=== PATIENT | female | born 1980 | race Caucasian/White ===

== ENCOUNTER 2024-12-01 13:40 | Inpatient (IN) | payer BC, SELFPAY ==
[2024-12-01] VITALS (14 sets, daily range): BP systolic 132–250; BP diastolic 79–150; PULSE 68–92; RESP 15–22; TEMP 36.3; O2SAT 93–99; BMI 28.1
--- NOTE | ~2024-12-01 | XR_ITS ---
EXAMINATION: XR CHEST CLINICAL INFORMATION: lightheaded COMPARISON: None available. TECHNIQUE: Frontal view of the chest was obtained. FINDINGS: Cardiac silhouette is prominent but may be partially magnified by the AP technique. Mediastinal and hilar contours are normal. The lungs are clear bilaterally. No pneumothorax or effusion. No focal osseous or soft tissue abnormality. XR/XR chest 1V IMPRESSION: 1. No active pulmonary disease. 2. Possible mild cardiac enlargement. Electronically signed by: Angel Rea MD 12/01/2024 02:53 PM EST
--- NOTE | ~2024-12-01 | US_ITS ---
EXAMINATION: US TRIPLEX LOWER EXTREMITY, LEFT CLINICAL INFORMATION: Left lower extremity edema. COMPARISON: None available. TECHNIQUE: Color-flow triplex imaging with spectral analysis and compression Doppler were performed on the left lower extremity. FINDINGS: Respiratory variation, normal compression and augmented flow are noted throughout the left lower extremity. The visualized common femoral vein, superficial femoral vein, profunda femoral vein, popliteal vein and midcalf peroneal and posterior tibial venous segments show no evidence of deep venous thrombosis. There is no Long's cyst. US/US venous duplex LE LT IMPRESSION: No evidence of deep venous thrombosis involving the left lower extremity. Electronically signed by: Angel Rea MD 12/01/2024 04:09 PM [facility]
--- NOTE | ~2024-12-01 | CT_ITS ---
EXAMINATION: CT HEAD WITHOUT CONTRAST (STROKE PROTOCOL) CLINICAL INFORMATION: Stroke protocol. COMPARISON: None available. TECHNIQUE: Contiguous axial imaging was performed from the skull base to vertex without intravenous administration of contrast. This CT examination was performed using dose optimization techniques as appropriate, variously including the following: *Automated exposure control *Adjustment of mA and/or kV according to patient size (this includes techniques or standardized protocols for targeted exams where dose is matched to indication/reason for exam; i.e. extremities or head) *Use of iterative reconstruction technique DLP: 708 mGy centimeter. FINDINGS: No acute intracranial hemorrhage, mass effect, midline shift, hydrocephalus or herniation. Hewitt-white matter differentiation is grossly normal. Posterior cranial fossa contents demonstrated no acute intrarenal hemorrhage or mass effect. Sellar/suprasellar region demonstrated no gross masses. Craniocervical junction is intact with normal alignment. The bony calvarium is intact. No air-fluid levels in the paranasal sinuses. Tympanic cavities are well aerated. Poor pneumatization of the right mastoid air cells. CT/CT head for STROKE IMPRESSION: No acute intracranial hemorrhage. Acute stroke/nonhemorrhagic ischemia cannot be excluded. If patient's symptoms persist recommend non-IV contrast MRI brain. This critical result was discussed with physician assistant professor of biology, Kerry Gonzalez at 1501 hours on December 01, 2024. It was ascertained that the content and urgency of the report was understood at the time of direct communication. Electronically signed by: Fred Potter MD 12/01/2024 03:04 PM [facility]
--- NOTE | ~2024-12-01 | CT_ITS ---
EXAMINATION: CTA NECK WITH CONTRAST (STROKE) CTA BRAIN WITH CONTRAST (STROKE) CLINICAL INFORMATION: Suspect acute stroke. Assess for major vessel occlusion. Please call report. COMPARISON: Correlated to noncontrast CT brain dated December 01, 2024. TECHNIQUE: CTA of the head and neck was performed in the axial plane from the mediastinum to the skull vertex using 70 mL Omnipaque 350 intravenous contrast. Additional reformatted multiplanar images including maximum intensity projection MIP images are generated on the CT workstation. This CT examination was performed using dose optimization techniques as appropriate, variously including the following: *Automated exposure control *Adjustment of mA and/or kV according to patient size (this includes techniques or standardized protocols for targeted exams where dose is matched to indication/reason for exam; i.e. extremities or head) *Use of iterative reconstruction technique. DLP: 720 mGy centimeter. FINDINGS: The degree of stenosis determined by criteria similar to NASCET. Chest CTA: No aneurysm or dissection, aorta arch. Neck CTA: Right CCA: Normal. Right ICA: Normal. Left CCA: Normal. Left ICA: Normal. V1/V2 segments demonstrated no stenosis or dissection. Left vertebral artery is dominant. Brain CTA: Anterior cerebral circulation: ICAs: No focal stenosis or abrupt cut off. MCA's: No focal stenosis or abrupt cut off. Bifurcation/trifurcation demonstrated no vascular irregularity. ACAs: No focal stenosis or abrupt cut off. Anterior communicating artery is patent. Ophthalmic arteries are patent without vascular irregularity. Posterior communicating arteries are patent. Posterior cerebral circulation: V3/V4 segments are patent without focal stenosis or intimal flap. Left vertebral artery is dominant. The basilar artery demonstrates normal caliber without intimal flap. The superior cerebellar arteries are patent. The left posterior inferior cerebellar arteries patent. There is a right anterior inferior and posterior inferior cerebellar artery trunk. coater carbon paper: No abrupt cut off or focal stenosis. Small P1 segments.. Ancillary findings: Bilateral pleural effusions, moderate to large volume. Mosaic pattern, bilaterally. Cervical spondylosis C5-6 resulting in kyphotic deformity. Poor dilatation. CT/CT angio head neck STROKE IMPRESSION: No high degree stenosis or dissection. No main cerebral artery occlusion or embolus. No gross cerebral aneurysm. Pulmonary edema and bilateral pleural effusions, moderate to large volume. Uncertain etiology. This critical test result is communicated to: Electronically signed by: Fred Potter MD 12/01/2024 03:37 PM EST RP
--- NOTE | ~2024-12-01 | US_ITS ---
EXAMINATION: ULTRASOUND RENAL WITH DOPPLER CLINICAL INFORMATION: Rule out renal artery stenosis. Hypertension. COMPARISON: None. TECHNIQUE: Real-time grayscale, color Doppler, and duplex Doppler evaluation of the kidneys and renal vasculature was performed. FINDINGS: RENAL MEASUREMENTS: Right: 10.9 x 5.9 x 5.6 cm (Sag x AP x TV) Left: 10.0 x 6.2 x 4.6 cm (Sag x AP x TV) No hydronephrosis. Normal cortical echogenicity and thickness. No suspicious masses. Spectral Doppler analysis: Right Kidney: -Peak systolic velocity in the proximal right renal artery = 63.8 cm/s. Normal waveforms. -Peak systolic velocity in the mid right renal artery = 101.0 cm/s. Normal waveforms. -Peak systolic velocity in the distal right renal artery = 121.0 cm/s. Normal waveforms. -Patent right renal vein. -Upper pole interlobar artery resistive index of 0.60. -Midpole interlobar artery resistive index of 0.61. -Lower pole interlobar artery resistive index of 0.62. RAR right = 1.22 Left Kidney: -Peak systolic velocity in the proximal left renal artery = 59.2 cm/s. Normal waveforms. -Peak systolic velocity in the mid left renal artery = 107.0 cm/s. Normal waveforms. -Peak systolic velocity in the distal left renal artery = 90.3 cm/s. Normal waveforms. -Patent left renal vein. -Upper pole interlobar artery resistive index of 0.63. -Mid pole interlobar artery resistive index of 0.60. -lower pole interlobar artery resistive index of 0.63. RAR left = 1.09 Aorta: -Peak systolic velocity = 98.4 cm/s. US/US renal doppler IMPRESSION: 1. No evidence of renal artery stenosis or abnormal waveforms bilaterally on color/spectral Doppler examination (based on peak systolic velocities and resistive indices). 2. Renal parenchyma is normal. Electronically signed by: Angel Rea MD 12/03/2024 02:40 PM [facility]
--- NOTE | ~2024-12-01 | MR_ITS ---
CLINICAL HISTORY: ataxia, HTN, CRAMER, N V r o CVA (posterior) MR BRAIN WITHOUT GADOLINIUM Comparison: CT/KS/SR - CT HEAD FOR STROKE - 12/01/24 14:44 EST Findings: No restricted diffusion to indicate acute infarct or ischemia. No intracranial mass or hemorrhage. No significant white matter signal alteration. No midline shift. No hydrocephalus. Vascular flow voids are intact. Orbital contents are unremarkable. The sinuses and mastoid air cells are clear. No focal bone lesion. IMPRESSION: No acute findings. This document has been electronically signed by: Luisana Dia DO on 12/01/2024 18:23:32
--- NOTE | 2024-12-01 14:24 | ECG_ITS ---
Test Reason : hypertension Blood Pressure : */* mmHG Vent. Rate : 81 BPM Atrial Rate : 81 BPM P-R Int : 152 ms QRS Dur : 86 ms QT Int : 410 ms P-R-T Axes : 72 43 147 degrees QTcB Int : 476 ms Normal sinus rhythm Possible Left atrial enlargement T wave abnormality, consider lateral ischemia Prolonged QT Abnormal ECG No previous ECGs available Referred By: Kerry Gonzalez Electronically Signed By: JAXON DONAHUE
[2024-12-01 14:42] LABS: MANUAL DIFF FLAG NO
[2024-12-01 14:46] LABS: Basophils Percent Auto 0.4 % (0-2); Eosinophils Absolute Auto 0.1 X10*3/uL (0.0-0.4); Eosinophils Percent Auto 0.5 % (0-4); Hematocrit 35.9 % (37.0-47.0); Hemoglobin 12.3 g/dl (12.0-16.0); Imm Gran Abs Auto 0.04 X10*3/uL (0.00-0.03); Imm Gran Pct Auto 0.4 % (0.0-0.4); Lymphocytes Absolute Auto 1.3 X10*3/uL (1.2-4.9); Lymphocytes Percent Auto 11.3 % (20-40); Mean Corpuscular HGB Conc 34.3 g/dl (31.0-35.0); Mean Corpuscular Hemoglobin 30.9 pg (27.0-33.0); Mean Corpuscular Volume 90.2 fL (80.0-98.0); Mean Platelet Volume 9.6 fL (9.4-12.3); Monocytes Absolute Auto 0.4 X10*3/uL (0.1-1.2); Monocytes Percent Auto 3.9 % (2-11); Neutrophils Absolute Auto 9.3 x10*3/uL (2.0-8.3); Neutrophils Percent Auto 83.5 % (45-73); Platelet Count 316 X10*3/uL (160-400); Red Blood Count 3.98 X10*6/uL (4.20-5.50); Red Cell Distribution Width 12.6 % (11.0-16.0); White Blood Count 11.1 X10*3/uL (4.8-10.8)
[2024-12-01 14:50] LABS: INTERNATIONAL NORM RATIO 0.9 (0.9-1.1); Prothrombin Time 10.9 SEC (10.9-12.4)
--- NOTE | 2024-12-01 14:53 | ED.GENADULT ---
HPI - General Adult General Chief complaint: Dizziness Stated complaint: hypertensive (offmeds), dizzy, b/l pedal edema Time Seen by Provider: 12/01/24 13:57 Source: patient, EMS, RN notes reviewed and old records reviewed Mode of arrival: EMS History of Present Illness ED Provider: Kerry Gonzalez PA-C HPI narrative: 44-year-old female with no significant past medical history presenting to the ED complaining of lightheadedness/presyncope, unsteady/off balance gait, feeling off x this morning when waking with episode lightheadedness w/ nausea and vomiting last night. Per EMS patient hypertensive. Reports right-sided headache last night, denies headache at present. Also reports LLE edema/swelling. Denies vision change or loss, CP/SOB, abdominal pain, nausea/vomiting at present. Denies anticoagulation use or recent illness. Denies recent travel/history of clots or cigarette smoking, does use vape Related Data Allergies Allergy/AdvReac Type Severity Reaction Status Date / Time No Known Allergies Allergy Verified 12/01/24 14:30 Review of Systems Review of Systems: Yes all other systems are reviewed and are negative Constitutional: Constitutional: Reports as per HPI Neurologic: Denies Abnormal speech present PMFSH Past Medical History Attestation statement: The following information was validated with the patient. Source: old records reviewed Social History Social History Advance Directives: No Advance Directives Information Provided: Yes Do you have a plan to hurt others: No Plan Physical Exam ED Vital Signs: Vital Signs - 24 hr 12/01/24 13:53 12/01/24 14:02 12/01/24 16:12 Pulse Rate 88 68 92 Respiratory Rate 16 18 18 Blood Pressure 189/115 H 178/105 H 186/112 H Pulse Oximetry 99 99 97 Oxygen Delivery Method Room Air Room Air Room Air 12/01/24 16:54 12/01/24 18:07 12/01/24 18:18 Pulse Rate 91 82 Respiratory Rate 18 Blood Pressure 186/112 H 195/128 H 200/134 H Pulse Oximetry 99 Oxygen Delivery Method Room Air 12/01/24 18:42 12/01/24 18:43 Pulse Rate 85 Respiratory Rate Blood Pressure 189/123 H 189/123 H Pulse Oximetry Oxygen Delivery Method BMI result Body Mass Index 28.1 Const General: cooperative, healthy appearing and no acute distress Orientation/consciousness: patient oriented x3 Limitations: no limitations HENMT Head: Yes normal to inspection and Yes atraumatic Ears: hearing grossly normal bilaterally General nose exam: Normal external nose present Face and sinus: Yes normal facial exam Mouth: Normal oral and palatal mucosa present Throat: Yes posterior oropharynx normal, Yes tonsils normal and Yes uvula midline Eyes General: appearance normal, both eyes and all related structures Pupils: Equal, round and reactive pupils present EOM: EOMs intact bilaterally Neck Neck: Yes normal visual inspection and Yes no meningeal signs Resp Effort & Inspection: normal respiratory effort and no respiratory distress Auscultation: clear to auscultation bilaterally, no crackles, no rhonchi and no wheezes Cardio Rate: regular rate Heart sounds: S1 normal heart sound present and S2 normal heart sound present GI Inspection: Yes normal to inspection Palpation (GI): Soft to palpation, nontender, no guarding and not rigid Skin Rashes: no rashes Wounds: no wounds Neuro General: patient oriented x3, tone normal, moves all extremities, no meningeal signs, no focal motor deficits and CN's II-XI intact bilaterally Cranial nerves: Yes CN's II-XII intact bilaterally and Yes Equal, round and reactive pupils present Cognition (Neuro): normal cognition Speech: No Abnormal speech present Gait exam (Neuro): Ataxic gait present Motor exam (neuro): 5/5 motor strength present throughout, Pronator motor function not present and no tremor noted Coordination: [id number] test normal Romberg Test: Negative Extrem Other: + pitting edema to LLE NIH Stroke Scale Internal: Initial- Upon Arrival Level of Consciousness: Alert Level of Consciousness Questions: Answers both questions correctly Level of Consciousness Commands: Performs both tasks correctly Best Gaze: Normal Visual: No visual loss Facial Palsy: Normal Motor Arm (Right): No drift Motor Arm (Left): No drift Motor Leg (Right): No drift Motor Leg (Left): No drift Limb Ataxia: Absent Sensory: Normal Best Language: No aphasia Dysarthia: Normal Extinction and Inattention: No abnormality Score: 0 Course Course Course Narrative: -1491--CT head negative for stroke CT head for STROKE IMPRESSION: No acute intracranial hemorrhage. Acute stroke/nonhemorrhagic ischemia cannot be excluded. If patient's symptoms persist recommend non-IV contrast MRI brain. CT angio head neck STROKE IMPRESSION: No high degree stenosis or dissection. No main cerebral artery occlusion or embolus. No gross cerebral aneurysm. Pulmonary edema and bilateral pleural effusions, moderate to large volume. Uncertain etiology. > case discussed with patient appointment coordinator, will obtain brain MRI. Patient denies history of CHF/clots or SOB/CP XR chest 1V IMPRESSION: 1. No active pulmonary disease. 2. Possible mild cardiac enlargement. US venous duplex LE LT IMPRESSION: No evidence of deep venous thrombosis involving the left lower extremity. -troponin 20.9 > will obtain 3 hour repeat. Viral testing negative -patient noncompliant with her blood pressure medication. Will give home dose of lisinopril & re-evaluate. States periodically checks her blood pressure at work and is always elevated. >1808--patient returned from MRI, persistently hypertensive will give 5 mg of IV Labetalol and repeat MR head/brain wo con IMPRESSION: No acute findings. -1836-- BP 189/120 after 5mg IV Labetolol. Will give Meclizine, additional 10mg of IV Labetalol and 40mg of IV Lasix. Plan is for admission. >190-- BP remains elevated > will try nitro paste -3-- patient ambulating w/steady gait, no ataxia at present -1906--case discussed with hospitalist, Dr. Smalls who accepted admission Medications Administered Discontinued Medications Generic Name Dose Route Start Last Admin Trade Name Freq PRN Reason Stop Dose Admin Furosemide 40 mg 12/01/24 18:33 12/01/24 18:43 Furosemide 40 Mg/4 Ml Vial IVPUSH 12/01/24 18:34 40 mg STAT STA Administration Protocol Sodium Chloride 1,000 mls @ 999 mls/hr 12/01/24 14:30 12/01/24 15:22 Ns IV 12/01/24 15:30 999 mls/hr .Q1H1M SABINO Administration Iohexol 100 ml 12/01/24 14:54 12/01/24 14:55 Iohexol 350 Mg/Ml 100 Ml Infus..Btl IV 12/01/24 14:55 70 ml ONCE ONE Administration Labetalol HCl 5 mg 12/01/24 18:09 12/01/24 18:18 Labetalol Hcl 100 Mg/20 Ml Vial IVPUSH 12/01/24 18:10 5 mg ONCE ONE Administration Labetalol HCl 10 mg 12/01/24 18:35 12/01/24 18:42 Labetalol Hcl 100 Mg/20 Ml Vial IVPUSH 12/01/24 18:36 10 mg ONCE ONE Administration Lisinopril 20 mg 12/01/24 16:36 12/01/24 16:54 Lisinopril 20 Mg Tablet PO 12/01/24 16:37 20 mg ONCE ONE Administration Protocol Meclizine HCl 25 mg 12/01/24 18:30 12/01/24 18:43 Meclizine Hcl 25 Mg Tablet PO 12/01/24 18:31 25 mg ONCE ONE Administration Ondansetron HCl 4 mg 12/01/24 14:26 12/01/24 15:27 Ondansetron Hcl 4 Mg/2 Ml Vial IVPUSH 12/01/24 14:27 4 mg ONCE ONE Administration Medical Decision Making Medical Decision Making MDM Narrative: 44-year-old female with no significant past medical history presenting to the ED complaining of lightheadedness/presyncope, unsteady/off balance gait, feeling off x this morning when waking with episode lightheadedness w/ nausea and vomiting last night. Reports right-sided headache last night, denies headache at present. Also reports LLE edema/swelling. On exam hypertensive, NAD, walking with ataxic gait, otherwise exam is nonfocal. + pitting edema to LLE. Concern for CVA vs TIA (unclear onset - last known well last night) vs DVT or CHF vs viral illness vs metabolic abnormalities. PE on ddx but lower at this time w/o hypoxia, tachycardia or SOB/CP Plan: EKG, labs, viral testing, UA, CXR, ultrasound, CT head/CTA head for stroke, orthostatics, Zofran, re-evaluate Please refer to course for remaining clinical decision making, interpretation of labs/imaging results, and discussions with consultants and/or family members. Differential Diagnosis Differential Diagnoses: The differential diagnosis associated with the presentation includes As above Admission/Observation Consideration of admission/observation: Escalation of care including admission/observation considered Consult Healthcare Provider Management of the patient was discussed with: Hospitalist and Naturopathic Physician Lab Data [facility] Lab Attestation statement: I reviewed the patient's lab results. 12/01/24 14:35 02/18/25 14:35 Labs: Lab Results 12/01/24 12/01/24 12/01/24 Range/Units 14:35 18:19 18:30 WBC 11.1 H (4.8-10.8) X10*3/uL RBC 3.98 L (4.20-5.50) X10*6/uL Hgb 12.3 (12.0-16.0) g/dl Hct 35.9 L (37.0-47.0) % MCV 90.2 (80.0-98.0) fL MCH 30.9 (27.0-33.0) pg MCHC 34.3 (31.0-35.0) g/dl RDW 12.6 (11.0-16.0) % Plt Count 316 (160-400) X10*3/uL MPV 9.6 (9.4-12.3) fL Immature Gran % (Auto) 0.4 (0.0-0.4) % Neut % (Auto) 83.5 H (45-73) % Lymph % (Auto) 11.3 L (20-40) % Butler % (Auto) 3.9 (2-11) % Eos % (Auto) 0.5 (0-4) % Baso % (Auto) 0.4 (0-2) % Lymph # (Auto) 1.3 (1.2-4.9) X10*3/uL Butler # (Auto) 0.4 (0.1-1.2) X10*3/uL Eos # (Auto) 0.1 (0.0-0.4) X10*3/uL Baso # (Auto) 0.0 (0.0-0.2) X10*3/uL Abs Immat Gran (auto) 0.04 H (0.00-0.03) X10*3/uL Absolute Neuts (auto) 9.3 H (2.0-8.3) x10*3/uL Absolute Nucleated RBC 0.000 (0.0-0.012) X10*3/uL Nucleated RBC % (auto) 0.0 (0.0-0.2) /100WBC PT 10.9 (10.9-12.4) SEC INR 0.9 (0.9-1.1) Sodium 138 (135-145) mmol/L Potassium 4.1 (3.3-5.1) mmol/L Chloride 111 H (96-108) mmol/L Carbon Dioxide 20 L (22-29) mmol/L Anion Gap 11 L (12-20) BUN 16 (9-16) mg/dL Creatinine 0.86 (0.5-1.4) mg/dL Estim Creat Clear Calc 95.7 Estimated GFR > 60 Random Glucose 111 (60-115) mg/dL Calcium 8.9 (8.4-10.2) mg/dL Magnesium 2.1 (1.6-2.6) mg/dL Total Bilirubin 0.5 (0.0-1.0) mg/dL Direct Bilirubin 0.2 (0.0-0.5) mg/dL AST 23 (5-31) U/L ALT 20 (0-31) U/L Alkaline Phosphatase 54 (39-117) U/L Troponin I High Sens 20.9 H 18.4 H (<3.5-17.0) ng/L Total Protein 6.3 L (6.5-8.0) g/dL Albumin 3.5 (3.5-5.0) g/dL Beta HCG, Quant < 2 mIU/mL Urine Color Yellow Urine Appearance Clear Urine pH 5.5 (5.0-9.0) Ur Specific Pierce >= 1.030 H (1.005-1.025) Urine Protein Trace (Neg-Trace) mg/dL Urine Glucose (UA) Negative (Negative) mg/dL Urine Ketones Negative (Negative) mg/dL Urine Blood Negative (Negative) Urine Nitrite Negative (Negative) Ur Leukocyte Esterase Negative (Negative) Influenza Type A (PCR) NEGATIVE (Negative) Influenza Type B (PCR) NEGATIVE (Negative) RSV RNA Qual (PCR) NEGATIVE (Negative) SARS-CoV-2 RNA (RT-PCR) NEGATIVE (Negative) Independent Interpretation I performed an independent interpretation of an: EKG (My interpretation EKG normal sinus rhythm rate of 81. Prolonged QT with 476. No previous to compare. No STEMI. Inverted T-waves in leads 1, 2, aVL, V3 through V6 ), Plain X-Ray and CT Scan Radiology Impression Discussion of test interpretation with radiology: I have reviewed the radiologist's reading. Independent Historian Clinical information obtained from an independent historian. History obtained from or confirmed by: EMS External Record Review External record reviewed: Inpatient record, Office record, Outpatient record, Prior outpatient labs, Prior outpatient radiology, Primary care record and Outside ED record Tests considered The following testing was considered but not selected: As above Prescription Management I considered prescription management with: Other Chronic Conditions Patient?s care impacted by: Other Social Determinants Patient?s care significantly limited by Social Determinants of Health including: Other Social Determinant of Health Critical Care Time Critical Care Time Critical Care Time: Yes Total Critical Care Time: 45 Attestation: I have personally provided critical care time exclusive of time spent on separately billable procedures. Time includes review of lab data, radiology results, discussion with consultants, and monitoring for potential decompensation. Intervention performed as documented. Discharge Plan Discharge Clinical Impression: Ataxia, Pulmonary edema, Pleural effusion, Pre-syncope, Leg edema, Hypertension Patient Disposition: Admitted As Inpatient Print Language: Latvian
[2024-12-01] MEDS: iohexoL 350 MG/ML 100 ML INFUS..BTL IV (14:55)
--- NOTE | 2024-12-01 15:00 | MHC.EDTECH ---
Attempted to do ekg pt is not in the room, will attempt shortly
--- NOTE | 2024-12-01 15:01 | MHC.EDTECH ---
attempted to do ekg pt is not in the room
[2024-12-01 15:08] LABS: Troponin-I High Sensitivity 20.9 ng/L (<3.5-17.0)
[2024-12-01 15:10] LABS: Alanine Aminotransferase 20 U/L (0-31); Albumin Level 3.5 g/dL (3.5-5.0); Anion Gap 11 (12-20); Aspartate Amino Transferase 23 U/L (5-31); Bilirubin Direct 0.2 mg/dL (0.0-0.5); Bilirubin Total 0.5 mg/dL (0.0-1.0); Blood Urea Nitrogen 16 mg/dL (9-16); Calcium 8.9 mg/dL (8.4-10.2); Carbon Dioxide 20 mmol/L (22-29); Chloride 111 mmol/L (96-108); Creatinine Clr Calc Pharmacy 95.7; Estimated Glomerular Filt Rate > 60; Glucose Random 111 mg/dL (60-115); Magnesium 2.1 mg/dL (1.6-2.6); Potassium 4.1 mmol/L (3.3-5.1); Sodium 138 mmol/L (135-145); Total Protein 6.3 g/dL (6.5-8.0)
[2024-12-01 15:22] LABS: Influenza A PCR NEGATIVE (Negative); Influenza B PCR NEGATIVE (Negative); Resp Syncy Virus RNA Qual PCR NEGATIVE (Negative); SARS COV2 PCR INHOUSE NEGATIVE (Negative)
[2024-12-01] MEDS: 0.9 % Sodium Chloride 1,000 ML 999 ML IV (15:22)
[2024-12-01] MEDS: ondansetron HCL 4 MG/2 ML VIAL IVPUSH (15:27)
[2024-12-01 15:34] LABS: HCG Quantitative < 2 mIU/mL
--- NOTE | 2024-12-01 15:36 | MHC.EDTECH ---
attempted to do ekg pt getting ultrasound at bedside
[2024-12-01 15:42] LABS: Alkaline Phosphatase 54 U/L (39-117)
--- NOTE | 2024-12-01 15:57 | MHC.STROKE ---
Met with patient in [facility] exam room 2 Pt awake, alert and oriented x 4. Reports feeling off since last night at approximately 2300. States that her gait is off. C/o right sided headache. No other focal deficits noted. At this time dizziness continues along with unsteady gait. Plan is for MRI to r/o posterior stroke. Pt agreeable to plan. Stroke Education reviewed. Pamphlet provided. Mri screening form completed and faxed Swallow screen done, will hold PO at this time. RN and provider aware Risk factors discussed including medical history, medications, diet, activity. Will continue to assist as needed.
--- OUTSIDE RECORDS SUMMARY | 2024-12-01 16:06 | XMS_ITS | Data Portability ---
Author Organization [facility], [address] Address [address] [place] [address] Assessment No assessment recorded. Plan of Treatment Reminders Order Date Submit Date Provider Last Modified By Organization Details Last Modified Time Details Appointments None recorded. Lab SARS CoV 2 (COVID-19) Ag, QL, IA, upper respiratory specimen 2023 024 [email or web address] [address] [place], [address], 4 09:39:40 rapid flu (A+B) 2023 024 [email or web address] [address] [place], [address], 4 09:39:40 Referral emergency medicine referral 2023 024 [email or web address] 2 Not available 4 09:48:12 Procedures None recorded. Surgeries None recorded. Imaging XR, chest, 2 view 2023 024 [facility], [address] [facility], [place], [address], 4 10:02:31 Medication Orders Zithromax Z-Florencio 250 mg tablet 2023 024 [id number], [address], [place], [phone], 4 09:39:46 albuterol sulfate HFA 90 mcg/actuati on aerosol inhaler 2023 [id number], [address], [place], [phone], 4 09:39:46 amoxicillin 875 mg-potdemetriusiu m clavulanate 125 mg tablet 2023 024 [facility] #[id number], [address], [place], [phone], 4 09:39:47 Patient TargetsNo targets recorded. Patient InstructionsNo instructions recorded. Reason for Referral Emergency Medicine Referral for Hypertensive urgency Referring Physician: Virgilio Szymanski, Urgent Care, Encounter Date: 09/25/2024 Results Created Date Observation Date Name Description Value Unit Range Abnormal Flag Note LastModifiedBy Organization Detail LastModifiedTime 09/25/2009/25/2024 rapid flu (A+B) Unknown Analyte negati ve Not Available [facility] [address] [place], [address], 09/25/2024 09:15:49 09/25/2009/25/2024 rapid flu (A+B) Unknown Analyte negati ve Not Available [facility] [address] [place], [address], 09/25/2024 09:15:49 09/25/20 24 09/25/2024 SARS CoV 2 (COVI D-19) Ag, QL, IA, upper respi rator y speci men Unknown Analyte negati ve Not Available [facility] [address] [place], [address], 09/25/2024 09:15:39 09/25/20 24 09/25/2024 XR, chest , 2 view No observ ation record ed. [email or web address] [facility] [address] [facility] [place], [address], 09/25/2024 10:04:28 Result Notes None recorded. Problems No Known Problems Procedures Surgical History None recorded. Imaging Results Imaging Date Name Status LastModified by Organiz ation Details LastModified Time 09/25/2024 XR, chest, 2 view completed [email or web address] [facility] [address] [facility] [place], [address], 09/25/2024 10:04:28 Procedure Notes None recorded. Medical Equipment None Reported. Allergies No known drug allergies Medications Name Sig Start Date Stop Date Status Note LastModified by Organization Details LastModified Time Prescription - Renewal active Not Available Not Available Not Available Zithromax Z-Florencio 250 mg tablet TAKE 2 TABLETS (500 MG) BY ORAL ROUTE ONCE DAILY FOR 1 DAY THEN 1 TABLET (250 MG) BY ORAL ROUTE ONCE DAILY FOR 4 DAYS 2023 active Not Available Not Available Not Avai lable albuterol sulfate HFA 90 mcg/actuation aerosol inhaler INHALE 2 PUFFS BY MOUTH EVERY 4 HOURS active Not Available Not Available No t Available amoxicillin 875 mg-potassium clavulanate 125 mg tablet Take 1 tablet every 12 hours by oral route for 5 days. 2023 active Not Available Not Available Not Avai lable Vitals Date Recorded Body height Body mass index (BMI) Body weight Body temperature Respiratory rate Heart rate Oxygen saturation Oxygen saturation in Arterial blood by Pulse oximetry Systolic blood pressure Diastolic blood pressure Provider Name and Address Organization Details Last Updated DateTime 4 172.72 cm 28 kg/m2 10763 g 98 [degF] 22 /min 95 /min 99 % 99 % 220 mm[Hg] 154 mm[Hg] Mandy Key PA - [facility] 4 09:06:14 Date Recorded Systolic blood pressure Diastolic blood pressure Provider Name and Address Organization Details Last Updated DateTime 09/25/2024 210 mm[Hg] 135 mm[Hg] Virgilio Szymanski, DO [address], [place], [address], [place] - [facility] 09/25/2024 09:13:42 Social History Question Answer Notes LastModified by Organizat ion Details LastModified Time Tobacco Smoking Status Former Smoker KATHLEEN Mendenhall - [facility] 09/25/2024 09:03:57 What Is Your Level Of Alcohol Consumption? Occasional [email or web address] Information not available 09/25/2024 How Many Times Per Week Do You Consume Alcohol? 1-2 Times Per Week [email or web address] Information not available 09/25/2024 Have You Had A Flu Shot This Season? No [email or web address] Information not available 09/25/2024 Do You Use Any Illicit Or Recreational Drugs? No [email or web address] Information not available 09/25/2024 Have You Recently Traveled Abroad? No [email or web address] Information not available 09/25/2024 Sex: Unknown Functional Status None recorded. Mental Status None recorded. Family History Relationship Description Onset Age of this Age Resolved Age Notes LastModified by Organization Details LastModified Time Father No current problems or disability deceas ed [email or web address] Not available 09/25/2024 09:03:25 Mother No current problems or disability Not available 09/25 09:03:10 Medical History No medical history recorded. Gynecological History Statement/Question Response Date of LMP 09/03/2024 Is there any chance of ? No LMP Definite Obstetrics History GPAL:G 0 P 0 0 0 0 Past Encounters Encounter ID Performer Location Encounter Start Date Encounter Closed Date Diagnosis/Indication Diagnosis SNOMED-CT Code Diagnosis ICD10 Code Diagnosis [place] [id number] [place] [address] [place] [address] 09/25/2024 08:58:10 09/25/2024 09:48:12 Cough 78481016 R05.9 CXR suggestive of BL PNA - . Await radiology official read.If any discrepanc y we will contact the patient. Rx ABxTake your antibiotic with food. Eat a yogurt daily or take a probiotic while you are taking the antibiotic .albuterol MDIReviewe d with patient potential adverse side effects of the medication . Given Hx and Sx will Rx Abx and albuterol MDITessaldeysi n perles prn coughTrial of mucinex prn congestion Humidified airrest, fluidstyle nol/ibu prn Patient advised to follow up as needed for worsening symptoms or no improvemen t. Discussed concerning red flags with patient and reasons to follow up in the Emergency Department urgently. Hypertensive urgency [id number] I16.0 likely exacerbate d by current illnessLaura is asymptomat ic with regards to her HTN advised that she go to ER nowlaura declined EMS transferSh agueda lives [place] the street from [place] and will go in private vehicle today Discussed with patient dangers of and associated morbidity/ mortality of untreated HTN Health Concerns Section Related Observation LastModified by Organization Detai ls LastModified Time None Recorded Concern Status LastModified by Organization Details LastModified Time None Recorded Advance Directives Directive None Recorded Payers Encounter Date Sequence Insurance Name Policy Number Policy Hu Covered Member ID Hu Member ID Guarantor Name 09/25/2024 1 [facility] (MEDICARE REPLACEMENT/A DVANTAGE - HMO) [id number] Marina Crowe [id number] Marina Crowe Notes Date Note Type Note Provider Name and Address Organization Details Recorded Time 09/25/2024 text/html 44 yo female c/o cough x 3--4 dworsening over last day+ SOB+ ELIZABETH+ wheezeno CPCough productive yellow/green mucous+ blood in mucus+ nasal congestion former daily smoker. now occasional smoker+ occasional vapeno asthma No feverNo chillsNo nauseaNo vomitingNo sinus painNo ear painNo sore throatNo Abdominal painNo diarrheaNo myalgiaNo fatigueNo rashNo HANo dizzinessNo recent travelNo known sick contacts + h/o HTNwas on medsHa snot had meds x months b/c no PCP Virgilio Szymanski, DO [address] [place], [address], [place] - [facility] 09/25/2024 09:53:04 OBGyn Episode No OBEpisode recorded.
[2024-12-01] MEDS: lisinopriL 20 MG TABLET PO (16:54)
[2024-12-01] MEDS: Labetalol HCL 100 MG/20 ML VIAL IVPUSH (18:18)
[2024-12-01] MEDS: Labetalol HCL 100 MG/20 ML VIAL 10 MG IVPUSH (18:42)
[2024-12-01 18:43] LABS: Appearance Urine Clear; Color Urine Yellow; Glucose Urine UA Negative (Negative); Leukocyte Esterase Urine Negative (Negative); Nitrite Urine Negative (Negative); PH 5.5 (5.0-9.0); Specific Gravity - Urine >= 1.030 (1.005-1.025); Urine Blood Negative (Negative); Urine Ketones Negative (Negative); Urine Protein Trace mg/dL (Neg-Trace)
[2024-12-01] MEDS: Meclizine HCl 25 MG TABLET PO (18:43)
[2024-12-01] MEDS: Furosemide 40 MG/4 ML VIAL IVPUSH (18:43)
[2024-12-01 19:00] LABS: Troponin-I High Sensitivity 18.4 ng/L (<3.5-17.0)
[2024-12-01] MEDS: Labetalol HCL 100 MG/20 ML VIAL 20 MG IVPUSH (19:51)
[2024-12-01] MEDS: amLODIPine Besylate 5 MG TABLET PO (19:51)
[2024-12-01] MEDS: Nitroglycerin 2 % Oint 1 GM Packet 1 INCH TRANSDERMA (19:52)
--- NOTE | 2024-12-01 20:04 | PC.NURSE ---
per nitro removed
[2024-12-01 20:32] LABS: TSH reflex Free T4 0.79 uIU/mL (0.32-4.0)
--- NOTE | 2024-12-01 20:43 | P.HPHOSP_ITS ---
History of Present Illness Date of Service: 12/01/24 <Sushma West PA-C - Last Filed: 12/01/24 20:55> Attending physician on admission: Suzy Smalls <NAYLA Caballero Last Filed: 12/01/24 20:55> Chief Complaint: presyncope <NAYLA Caballero Last Filed: 12/01/24 20:55> Patient is a 44-year-old female with a past medical history significant for hypertension, depression and vertigo, who presented to the ED due to ataxia, lower extremity edema, presyncope, lightheadedness, nausea and vomiting. She also reported a right-sided headache yesterday. She has chronic hypertension and reports that she has not been taking her medication as she moved a few months ago and has yet to find a primary care provider to prescribe this for her. On arrival she was found to be in hypertensive urgency with a blood pressure of 200/104. CT head and CTA head and neck both negative aside from bilateral pleural effusions, moderate to large in volume bilaterally. MRI brain negative. Chest x-ray with possible mild cardiac enlargement. Venous duplex negative for DVT. Troponin slightly elevated at 20.9, 18.4 and repeat. EKG with NSR. COVID/flu/RSV negative. She received her regular lisinopril dose of 20 mg as well as labetalol 5 mg, labetalol 10 mg, labetalol 20 mg furosemide 40 mg amlodipine 5 mg and nitro paste. Her BP has normalized and she will be admitted for further cardiac workup and monitoring. <NAYLA Caballero Last Filed: 12/01/24 20:55> Review of Systems 2 Constitutional: Constitutional: Denies body ache(s), Denies chills, Denies fatigue, Denies fever(s) and Denies headache(s) <NAYLA Caballero Last Filed: 12/01/24 20:55> Eyes: Eyes: Denies change in vision and Denies photophobia <NAYLA Caballero Last Filed: 12/01/24 20:55> ENT: Denies headache(s), Denies nasal congestion, Denies nasal discharge and Denies sore throat <SILVIA CaballeroPrecious - Last Filed: 12/01/24 20:55> Cardiovascular: Cardiovascular: Denies chest pain, Denies rapid heart rate, Reports leg edema, Reports lightheadedness, Reports dyspnea and Reports dyspnea on exertion <SILVIA CaballeroPrecious - Last Filed: 12/01/24 20:55> Respiratory: Respiratory: Reports cough (Dry, persistent since September), Reports dyspnea, Reports dyspnea on exertion and Denies wheezing <SILVIA CaballeroPrecious - Last Filed: 12/01/24 20:55> Gastrointestinal: Gastrointestinal: Denies diarrhea and Denies vomiting < SushmaSILVIA PierrePrecious - Last Filed: 12/01/24 20:55> Genitourinary: Genitourinary: Denies dysuria and Denies urinary urgency < SILVIA CaballeroPrecious - Last Filed: 12/01/24 20:55> Musculoskeletal: Musculoskeletal: Reports abnormal gait and Denies myalgias <SILVIA CaballeroPrecious Last Filed: 12/01/24 20:55> Integumentary/Breasts: Skin/Breast: Denies rash <SushmaSILVIA PierrePrecious Last Filed: 12/01/24 20:55> Neurologic: Reports abnormal gait, Denies confusion and Denies headache(s) <SILVIA CaballeroPrecious Last Filed: 12/01/24 20:55> Psychiatric: Psychiatric: Denies confusion <SILVIA CaballeroPrecious Last Filed: 12/01/24 20:55> Endocrine: Endocrine: Denies fatigue <SILVIA CaballeroPrecious Last Filed: 12/01/24 20:55> Hematologic/Lymphatic: Hematologic/Lymphatic: Denies easy bleeding and Denies easy bruising <Sushma West PA-C Last Filed: 12/01/24 20:55> Allergic/Immunologic: Allergic/Immunologic: Denies wheezing <SILVIA CaballeroPrecious Last Filed: 12/01/24 20:55> [facility] Medical History: Medical History (Updated 12/01/24 @ 20:56 by Suzy Smalls MD) Hypertension <Sushma West PA-C - Last Filed: 12/01/24 20:55> Functional capacity: independent ambulation <Sushma West PA-C - Last Filed: 12/01/24 20:55> Social History: Social History Advance Directives: No Advance Directives Information Provided: Yes Do you have a plan to hurt others: No Plan <Sushma West PA-C - Last Filed: 12/01/24 20:55> Narrative: Vapes nicotine, has not vaped in days. rare alcohol, no drug use < NAYLA Caballero Last Filed: 12/01/24 20:55> Meds Allergies/Adverse reactions: Allergies Allergy/AdvReac Type Severity Reaction Status Date / Time No Known Allergies Allergy Verified 12/01/24 14:30 <Sushma West PA-C - Last Filed: 12/01/24 20:55> Active Medications: Current Medications Acetaminophen (Acetaminophen 325 Mg Tablet) 650 mg PO Q6H PRN PRN Reason: Pain, Mild 1-3,fever,headache Amlodipine Besylate (Amlodipine Besylate 5 Mg Tablet) 5 mg PO DAILY SABINO; Protocol Last Admin: 12/01/24 19:51 Dose: 5 mg Amlodipine Besylate (Amlodipine Besylate 5 Mg Tablet) 5 mg PO DAILY SABINO; Protocol Calcium Carbonate (Calcium Carbonate 750 Mg Tab.Chew) 750 mg PO Q4H PRN PRN Reason: Heartburn Enoxaparin Sodium (Enoxaparin Sodium 40 Mg/0.4 Ml Syringe) 40 mg SUBCUT Q24H SABINO Lisinopril (Lisinopril 20 Mg Tablet) 20 mg PO DAILY SABINO; Protocol Magnesium Hydroxide (Milk Of Magnesia 30 Ml Oral.Susp) 30 ml PO DAILY PRN PRN Reason: Constipation Meclizine HCl (Meclizine Hcl 25 Mg Tablet) 25 mg PO Q6H PRN PRN Reason: Vertigo Melatonin (Melatonin 3 Mg Tablet) 6 mg PO BEDTIME PRN PRN Reason: Insomnia Ondansetron HCl (Ondansetron Hcl 4 Mg/2 Ml Vial) 4 mg IVPUSH Q8H PRN PRN Reason: Nausea and Vomiting Sodium Chloride (0.9 % Sodium Chloride Flush 3 Ml Syringe) 3 ml IVFLUSH QSHIFT SABINO <Sushma West PA-C Last Filed: 12/01/24 20:55> Home medications: Home Medications ?Medication ?Instructions ?Recorded ?Confirmed ?Last Taken ?Type No Known Home Meds 12/01/24 12/01/24 Unknown History <NAYLA Caballero Last Filed: 12/01/24 20:55> Physical Exam 2 Vital Signs and Narrative: Vital Signs: Last Vital Signs Pulse 78 12/01/24 20:31 Resp 16 12/01/24 20:31 BP 152/84 H 12/01/24 20:31 Pulse Ox 96 12/01/24 20:31 O2 Del Method Room Air 12/01/24 20:31 BMI result Body Mass Index 28.1 <Sushma West PA-C Last Filed: 12/01/24 20:55> General: AOx3, no acute distress Resp: CTA bilaterally, no crackles or wheezing CVS: S1, S2, RRR GI: +BS, NT, no distention Skin: Warm, dry Neuro: Cranial nerves II-XII grossly intact bilaterally. Motor grossly intact bilaterally Extremities: No LE edema Psych: Appropriate affect <NAYLA Caballero Last Filed: 12/01/24 20:55> Const: General: No confusion <Sushma West PA-C Last Filed: 12/01/24 20:55> Orientation/consciousness: No confusion <NAYLA Caballero Last Filed: 12/01/24 20:55> Eyes: Direct Ophthalmoscopy: No photophobia <NAYLA Caballero Last Filed: 12/01/24 20:55> Neuro: General: No confusion <NAYLA Caballero Last Filed: 12/01/24 20:55> Results Labs CBC and Chem 7: 12/01/24 14:35 12/01/24 14:35 <NAYLA Caballero Last Filed: 12/01/24 20:55> Labs: Laboratory Results - last 24 hr 12/01/24 12/01/24 14:35 18:30 MCV 90.2 MCH 30.9 MCHC 34.3 RDW 12.6 Plt Count 316 MPV 9.6 Immature Gran % (Auto) 0.4 Neut % (Auto) 83.5 H Lymph % (Auto) 11.3 L [place] % (Auto) 3.9 Eos % (Auto) 0.5 Baso % (Auto) 0.4 Lymph # (Auto) 1.3 [place] # (Auto) 0.4 Eos # (Auto) 0.1 Baso # (Auto) 0.0 Abs Immat Gran (auto) 0.04 H Absolute Neuts (auto) 9.3 H Absolute Nucleated RBC 0.000 Nucleated RBC % (auto) 0.0 PT 10.9 INR 0.9 Anion Gap 11 L Estim Creat Clear Calc 95.7 Estimated GFR > 60 Random Glucose 111 Calcium 8.9 Magnesium 2.1 Total Bilirubin 0.5 Direct Bilirubin 0.2 AST 23 ALT 20 Alkaline Phosphatase 54 Total Protein 6.3 L Albumin 3.5 TSH 0.79 Beta HCG, Quant < 2 Urine Color Yellow Urine Appearance Clear Urine pH 5.5 Ur Specific [place] >= 1.030 H Urine Protein Trace Urine Glucose (UA) Negative Urine Ketones Negative Urine Blood Negative Urine Nitrite Negative Ur Leukocyte Esterase Negative Influenza Type A (PCR) NEGATIVE Influenza Type B (PCR) NEGATIVE RSV RNA Qual (PCR) NEGATIVE SARS-CoV-2 RNA (RT-PCR) NEGATIVE <Sushma West PA-C - Last Filed: 12/01/24 20:55> Imaging Radiologist's Impressions: Impressions Chest X-Ray 12/01/24 14:24 IMPRESSION: 1. No active pulmonary disease. 2. Possible mild cardiac enlargement. Electronically signed by: Angel Rea MD 12/01/2024 02:53 PM [facility] Head CT 12/01/24 14:44 IMPRESSION: No acute intracranial hemorrhage. Acute stroke/nonhemorrhagic ischemia cannot be excluded. If patient's symptoms persist recommend non-IV contrast MRI brain. This critical result was discussed with physician assistant dean, Kerry Gonzalez at 1501 hours on December 01, 2024. It was ascertained that the content and urgency of the report was understood at the time of direct communication. Electronically signed by: Fred Potter MD 12/01/2024 03:04 PM EST RP Head/Neck CTA 12/01/24 14:52 IMPRESSION: No high degree stenosis or dissection. No main cerebral artery occlusion or embolus. No gross cerebral aneurysm. Pulmonary edema and bilateral pleural effusions, moderate to large volume. Uncertain etiology. This critical test result is communicated to: Electronically signed by: Fred Potter MD 12/01/2024 03:37 PM EST RP Venous Duplex 12/01/24 15:33 IMPRESSION: No evidence of deep venous thrombosis involving the left lower extremity. Electronically signed by: Anegl Rea MD 12/01/2024 04:09 PM EST RP <Sushma West PA-C - Last Filed: 12/01/24 20:55> Assessment and Plan (1) Hypertensive urgency: Status: Inactive <KATHLEEN Caballeor-C - Last Filed: 12/01/24 20:55> (2) Pre-syncope: Status: Acute <SILVIA CaballeroC - Last Filed: 12/01/24 20:55> (3) Pulmonary edema: Status: Acute <SILVIA CaballeroC - Last Filed: 12/01/24 20:55> (4) Pleural effusion: Status: Acute <KATHLEEN Caballero-C - Last Filed: 12/01/24 20:55> (5) Ataxia: Status: Acute <SILVIA CaballeroC - Last Filed: 12/01/24 20:55> (6) Hypertensive emergency: Status: Acute <KATHLEEN Caballero-C - Last Filed: 12/01/24 20:55> Patient is a 44-year-old female with a past medical history significant for hypertension, depression and vertigo, who presented to the ED due to ataxia, lower extremity edema, presyncope, lightheadedness, nausea and vomiting. pre-sycope secondary to hypertensive urgency - BP up to 200/104, now better, 152/84 - received lisinopril 20 mg, labetalol 5 mg, labetalol 10 mg, labetalol 20 mg, furosemide 40 mg, amlodipine 5 mg and nitro paste in ED, continue amlodipine and lisinopril - monitor BP - echo - cardiac diet Pulmonary edema and pulmonary effusion secondary to hypertensive urgency - furosemide 40 mg given in ED with improvement of shortness of breath and lower extremity edema - BNP pending Ataxia secondary to vertigo - head CT, CT a head and neck and brain MRI all negative - meclizine as needed Full code VTE prophylaxis: Lovenox Patient with a presyncopal episode urgency complicated by pulmonary edema pulmonary effusion, requiring admission for at least for at least 2 midnights stay for further cardiac workup and monitoring. <Sushma West PA-C - Last Filed: 12/01/24 20:55> Patient is a 44-year-old female with a past medical history significant for hypertension, depression and vertigo, who presented to the ED due to ataxia, lower extremity edema, presyncope, lightheadedness, nausea and vomiting. pre-sycope secondary to hypertensive emergency - BP up to 200/104, now better, 152/84 - received lisinopril 20 mg, labetalol 5 mg, labetalol 10 mg, labetalol 20 mg, furosemide 40 mg, amlodipine 5 mg and nitro paste in ED, continue amlodipine and lisinopril - monitor BP - echo - cardiac diet Pulmonary edema and pulmonary effusion secondary to hypertensive emergency - furosemide 40 mg given in ED with improvement of shortness of breath and lower extremity edema - BNP pending Ataxia secondary to vertigo - head CT, CT a head and neck and brain MRI all negative - meclizine as needed Full code VTE prophylaxis: Lovenox Patient with a presyncopal episode urgency complicated by pulmonary edema pulmonary effusion, requiring admission for at least for at least 2 midnights stay for further cardiac workup and monitoring. <Suzy Smalls MD - Last Filed: 12/01/24 20:57> Quality Stroke Does the patient have a stroke diagnosis?: No <Sushma West PA-C - Last Filed: 12/01/24 20:55> VTE Prior VTE?: No <Sushma West PA-C - Last Filed: 12/01/24 20:55> VTE Risk Level:: Medical - moderate - high <Sushma West PA-C - Last Filed: 12/01/24 20:55> VTE Device Contraindication: Treatment Not Indicated <Sushma West PA-C - Last Filed: 12/01/24 20:55> VTE Drug Contraindication: N/A - Med Ordered <Sushma West PA-C - Last Filed: 12/01/24 20:55>
--- NOTE | 2024-12-01 20:49 | PHA.MEDREC ---
Addendum entered by Nader Navarro 12/01/24 21:02: reviewed Original Note: Pharmacy Consult ? Medication Reconciliation Pharmacy has completed the medication reconciliation. Patient confirm she is not on any medications.
[2024-12-01 21:23] LABS: B Type Natriuretic Peptide 412 pg/mL (<100)
[2024-12-01] MEDS: Enoxaparin Sodium 40 MG/0.4 ML SYRINGE SUBCUT (21:26)
[2024-12-02] VITALS (17 sets, daily range): BP systolic 125–197; BP diastolic 63–126; PULSE 66–93; RESP 15–22; TEMP 36.1–36.9; O2SAT 93–98
[2024-12-02] MEDS: 0.9 % Sodium Chloride Flush 3 ML SYRINGE IVFLUSH ×2 (01:11→23:43)
[2024-12-02 04:56] LABS: Basophils Percent Auto 0.3 % (0-2); Eosinophils Absolute Auto 0.1 X10*3/uL (0.0-0.4); Eosinophils Percent Auto 0.8 % (0-4); Hematocrit 34.8 % (37.0-47.0); Imm Gran Abs Auto 0.02 X10*3/uL (0.00-0.03); Imm Gran Pct Auto 0.2 % (0.0-0.4); Lymphocytes Absolute Auto 1.7 X10*3/uL (1.2-4.9); MANUAL DIFF FLAG NO; Mean Corpuscular HGB Conc 34.5 g/dl (31.0-35.0); Mean Corpuscular Hemoglobin 30.9 pg (27.0-33.0); Mean Corpuscular Volume 89.7 fL (80.0-98.0); Mean Platelet Volume 9.2 fL (9.4-12.3); Monocytes Absolute Auto 0.4 X10*3/uL (0.1-1.2); Monocytes Percent Auto 4.9 % (2-11); Neutrophils Absolute Auto 6.6 x10*3/uL (2.0-8.3); Neutrophils Percent Auto 74.8 % (45-73); Platelet Count 301 X10*3/uL (160-400); Red Blood Count 3.88 X10*6/uL (4.20-5.50); Red Cell Distribution Width 12.8 % (11.0-16.0); White Blood Count 8.8 X10*3/uL (4.8-10.8)
[2024-12-02 05:11] LABS: Anion Gap 12 (12-20); Blood Urea Nitrogen 18 mg/dL (9-16); Calcium 8.6 mg/dL (8.4-10.2); Carbon Dioxide 25 mmol/L (22-29); Chloride 109 mmol/L (96-108); Creatinine Clr Calc Pharmacy 93.5; Estimated Glomerular Filt Rate > 60; Glucose Random 102 mg/dL (60-115); Potassium 4.4 mmol/L (3.3-5.1); Sodium 142 mmol/L (135-145)
[2024-12-02 05:49] LABS: Folate 9.4 ng/mL (> or = 4.0); Vitamin B12 342 pg/mL (200-900)
--- NOTE | 2024-12-02 07:00 | CA_ITS ---
Transthoracic Echocardiogram Patient (Last, First, Middle): Marina Crowe, Gender: Female Date of : 1980 Age: 44 Procedure Date: 12/02/2024 Procedure Type: Transthoracic Echocardiogram Location: ER Height: 172.72 cm Weight: 83.92 kg BSA: 1.98 m2 Heart Rate: bpm BP: 150 / 91 mmHg Stacker Driver: Referring MD: Suzy Smalls MD Symptoms: CHF Study Quality: Good ECG Rhythm: Sinus Conclusions: - The left ventricular systolic function is moderately decreased. The calculated ejection fraction is 35% by biplane method. - There is moderately increased left ventricular wall thickness. - Evidence suggests grade II (moderate) diastolic dysfunction. - The basal inferior segment is akinetic. - No obvious valvular pathology seen on this study. Findings Left Ventricle Normal left ventricular cavity size. There is moderately increased left ventricular wall thickness. The left ventricular systolic function is moderately decreased. The calculated ejection fraction is 35% by biplane method. There is moderate global hypokinesis. Evidence suggests grade II (moderate) diastolic dysfunction. Wall Motion Rest Echo Findings The basal inferior segment is akinetic. Right Ventricle Mildly increased right ventricular cavity size. There is normal right ventricular systolic function. Atria The left atrium is severely dilated. The right atrium is mildly dilated. Aortic Valve There is a normal trileaflet aortic valve. There is no aortic valve stenosis. Trace to mild aortic regurgitation. Mitral Valve The mitral valve appears normal. There is mild mitral annular calcification. There is trace mitral valve regurgitation. There is no mitral valve stenosis. Pulmonic Valve The pulmonic valve is likely normal. Tricuspid Valve There is trace tricuspid valve regurgitation. There is no evidence of pulmonary hypertension. Great Vessels The asc aorta is normal in size. Venous The inferior vena cava is dilated and collapses greater than 50% with inspiration. Pericardium/Pleural There is no evidence of pericardial effusion. Prior Study Comparison No prior study available for comparison. Recommendations, Care & Conclusions No obvious valvular pathology seen on this study. Measurements 2D Linear Measurements IVSd: 1.41 0.6-0.9/0.6-1.0 cm LVIDd: 5.05 3.9-5.3/4.2-5.9 cm LVIDd Index: 2.55 2.4-3.2/2.2-3.1 cm/m2 LVIDs: 4.24 2.0-3.6 cm LVPWd: 1.36 0.7-1.1 cm Ao Root: 2.80 2.1-3.5 cm LA Diam: 4.40 2.7-3.8/3.0-4.0 cm LAIDs Index: 2.22 1.5-2.3 cm/m2 LV Mass: 363.40 67-162/88-224 g LV Mass Index: 183.54 43-95/49-115 g/m2 LVOT Diam: 2.20 3.0+(-)1.3 cm 2D Systolic Function EF 4C: 35.80 >55% EF 2C: 34.20 >55% EF BiP: 35.30 >55% Mitral Valve MV Pk E: 1.21 MV PK A: 0.72 MV Decel Time: 104.00 E/A: 1.70 E'Lateral: 6.96 E'Medial: 6.42 E/E' Med: 18.80 E/E' Lat: 17.40 PHT: 30.00 MVA PHT: 7.33 Decel Josephine: 11.65 Aortic Valve AoV Pk Kareem: 1.18 AoV Mn Kareem: 0.79 AoV VTI: 0.18 AoV Pk Grad: 6.00 Aov Mn Grad: 3.00 DEISI Cont.VTI: 3.51 LVOT LVOT Pk Kareem: 1.11 LVOT Mn Kareem: 0.70 LVOT VTI: 0.17 LVOT Pk Grad: 5.00 LVOT Mn Grad: 2.00 LVOT Diam: 2.20 LVOT Area: 3.80 Diastolic Function MV Pk E: 1.21 MV Pk A: 0.72 E/A: 1.70 E'Medial: 6.42 E/E' Med: 18.80 E' Laterial: 6.96 E/E' Lat: 17.40 Right Ventricle TAPSE (mm): 21.00 Tricuspid Valve TR Pk Kareem: 2.30 TR Pk Grad: 21.00 RA Press: 8.00 RVSP: 29.00 Great Vessels Aorta Ao Root-2D: 2.80 2.0-3.7 cm Ao Asc: 2.90 2.1-3.4 cm Pulmonary Valve PV Pk Kareem: 0.73 Peak PV Grad: 2.00 Updated in Other Vendor System with Status of Final Ricardo Bolden MD electronically signed on 12/02/2024 11:40:45 AM with status of Final
[2024-12-02] MEDS: amLODIPine Besylate 5 MG TABLET PO (09:19)
[2024-12-02] MEDS: lisinopriL 20 MG TABLET PO (09:19)
--- NOTE | 2024-12-02 12:19 | MHC.CM.PN ---
CM met with Patient at bedside, in the ED. Patient lives in a house with her Mother and she is functionally independent. Home/self care is Patient's goal and CM has initiated and will follow for dc planning. Patient has no PCP(PCP pamphlet to be provided). Patient's Brother will transport to home and HCP completion was declined.
[2024-12-02] MEDS: amLODIPine Besylate 10 MG TABLET PO (12:43)
[2024-12-02] MEDS: lisinopriL 40 MG TABLET PO (12:44)
--- NOTE | 2024-12-02 13:04 | P.PNIM_ITS ---
Subjective Subjective Date of Service: 12/02/24 Interval History: seen and evaluated this morning feels better BP still running high on 180s Decrease EF to 35% no other events Review of Systems Review of Systems: Yes all other systems are reviewed and are negative Physical Exam 2 Vital Signs: Vital Signs: Last Vital Signs Temp 98.5 F 12/02/24 12:37 Pulse 80 12/02/24 12:37 Resp 18 12/02/24 12:37 BP 182/116 H 12/02/24 12:44 Pulse Ox 95 12/02/24 12:37 O2 Del Method Room Air 12/02/24 12:37 BMI result Body Mass Index 28.1 Const: Other: Constitutional : interactive, not in distress Cardiovascular : no JVP, trace bilateral lower extremity edema Respiratory : bilateral chest movement, not in resp distress, basal fine crackles Gastrointestinal: soft, lax, Non tender Skin : Warm, Dry Neurological : Alert & oriented , No focal deficit Objective Data Active Medications Acetaminophen (Acetaminophen 325 Mg Tablet) 650 mg PO Q6H PRN PRN Reason: Pain, Mild 1-3,fever,headache Amlodipine Besylate (Amlodipine Besylate 10 Mg Tablet) 10 mg PO DAILY [facility]; Protocol Last Admin: 12/02/24 12:43 Dose: 10 mg Documented By: TRACY Comments: bp 182/116 Calcium Carbonate (Calcium Carbonate 750 Mg Tab.Chew) 750 mg PO Q4H PRN PRN Reason: Heartburn Enoxaparin Sodium (Enoxaparin Sodium 40 Mg/0.4 Ml Syringe) 40 mg SUBCUT Q24H [facility] Last Admin: 12/01/24 21:26 Dose: 40 mg Documented By: ANN Lisinopril (Lisinopril 40 Mg Tablet) 40 mg PO DAILY [facility]; Protocol Last Admin: 12/02/24 12:44 Dose: 40 mg Documented By: TRACY Magnesium Hydroxide (Milk Of Magnesia 30 Ml Oral.Susp) 30 ml PO DAILY PRN PRN Reason: Constipation Meclizine HCl (Meclizine Hcl 25 Mg Tablet) 25 mg PO Q6H PRN PRN Reason: Vertigo Melatonin (Melatonin 3 Mg Tablet) 6 mg PO BEDTIME PRN PRN Reason: Insomnia Ondansetron HCl (Ondansetron Hcl 4 Mg/2 Ml Vial) 4 mg IVPUSH Q8H PRN PRN Reason: Nausea and Vomiting Sodium Chloride (0.9 % Sodium Chloride Flush 3 Ml Syringe) 3 ml IVFLUSH QSHIFT [facility] Last Admin: 12/02/24 08:58 Dose: Not Given Documented By: ROSA ELENA Non-Admin Reason: See Note Labs 12/02/24 04:51 12/02/24 04:51 Labs: Laboratory Results - last 24 hr 12/01/24 12/01/24 12/01/24 14:35 18:30 20:52 MCV 90.2 MCH 30.9 MCHC 34.3 RDW 12.6 Plt Count 316 MPV 9.6 Immature Gran % (Auto) 0.4 Neut % (Auto) 83.5 H Lymph % (Auto) 11.3 L [place] % (Auto) 3.9 Eos % (Auto) 0.5 Baso % (Auto) 0.4 Lymph # (Auto) 1.3 [place] # (Auto) 0.4 Eos # (Auto) 0.1 Baso # (Auto) 0.0 Abs Immat Gran (auto) 0.04 H Absolute Neuts (auto) 9.3 H Absolute Nucleated RBC 0.000 Nucleated RBC % (auto) 0.0 PT 10.9 INR 0.9 Anion Gap 11 L Estim Creat Clear Calc 95.7 Estimated GFR > 60 Random Glucose 111 Calcium 8.9 Magnesium 2.1 Total Bilirubin 0.5 Direct Bilirubin 0.2 AST 23 ALT 20 Alkaline Phosphatase 54 B-Natriuretic Peptide 412 H Total Protein 6.3 L Albumin 3.5 Vitamin B12 Folate TSH 0.79 Beta HCG, Quant < 2 Urine Color Yellow Urine Appearance Clear Urine pH 5.5 Ur Specific [place] >= 1.030 H Urine Protein Trace Urine Glucose (UA) Negative Urine Ketones Negative Urine Blood Negative Urine Nitrite Negative Ur Leukocyte Esterase Negative Influenza Type A (PCR) NEGATIVE Influenza Type B (PCR) NEGATIVE RSV RNA Qual (PCR) NEGATIVE SARS-CoV-2 RNA (RT-PCR) NEGATIVE 12/02/24 04:51 MCV 89.7 MCH 30.9 MCHC 34.5 RDW 12.8 Plt Count 301 MPV 9.2 L Immature Gran % (Auto) 0.2 Neut % (Auto) 74.8 H Lymph % (Auto) 19.0 L [place] % (Auto) 4.9 Eos % (Auto) 0.8 Baso % (Auto) 0.3 Lymph # (Auto) 1.7 [place] # (Auto) 0.4 Eos # (Auto) 0.1 Baso # (Auto) 0.0 Abs Immat Gran (auto) 0.02 Absolute Neuts (auto) 6.6 Absolute Nucleated RBC 0.000 Nucleated RBC % (auto) 0.0 PT INR Anion Gap 12 Estim Creat Clear Calc 93.5 Estimated GFR > 60 Random Glucose 102 Calcium 8.6 Magnesium Total Bilirubin Direct Bilirubin AST ALT Alkaline Phosphatase B-Natriuretic Peptide Total Protein Albumin Vitamin B12 342 Folate 9.4 TSH Beta HCG, Quant Urine Color Urine Appearance Urine pH Ur Specific [place] Urine Protein Urine Glucose (UA) Urine Ketones Urine Blood Urine Nitrite Ur Leukocyte Esterase Influenza Type A (PCR) Influenza Type B (PCR) RSV RNA Qual (PCR) SARS-CoV-2 RNA (RT-PCR) Assessment and Plan (1) Hypertensive emergency: Status: Acute (2) Hypertension: Status: Acute (3) Ataxia: Status: Acute (4) Pleural effusion: Status: Acute (5) Pulmonary edema: Status: Acute (6) Systolic heart failure: Status: Acute Plan Patient is a 44-year-old female with a past medical history significant for hypertension, depression and vertigo, who presented to the ED due to ataxia, lower extremity edema, presyncope, lightheadedness, nausea and vomiting. pre-sycope secondary to hypertensive emergency BP improved after multiple IV and PO medications Increase Amlodipine to 10 mg Lisinopril to 40 mg Add Spironolactone and low dose Carvedilol monitor BP Acute Pulmonary edema 2/2 new systolic heart failure echo showing low EF of 35% cardiac diet cardiology consult Lasix 40 mg IV daily follow I\O and BNP Ataxia secondary to vertigo head CT, CT a head and neck and brain MRI all negative meclizine as needed Full code VTE prophylaxis: Lovenox Patient with a presyncopal episode urgency complicated by pulmonary edema pulmonary effusion and heart failure, requiring overnight stay pending better control of blood pressure and cardiology evaluation Quality Stroke Does the patient have a stroke diagnosis?: No VTE Prior VTE?: No VTE Risk Level:: Medical - moderate - high VTE Device Contraindication: Treatment Not Indicated VTE Drug Contraindication: N/A - Med Ordered
[2024-12-02] MEDS: Spironolactone 25 MG TABLET 12.5 MG PO ×2 (14:20→19:39)
[2024-12-02] MEDS: carvediloL 6.25 MG TABLET PO ×2 (14:22→20:31)
[2024-12-02] MEDS: Acetaminophen 325 MG TABLET 650 MG PO (16:41)
[2024-12-02] MEDS: LORazepam 0.5 MG TABLET 0.25 MG PO (19:39)
[2024-12-02] MEDS: traMADoL HCL 50 MG TABLET 25 MG PO (19:39)
[2024-12-02] MEDS: Enoxaparin Sodium 40 MG/0.4 ML SYRINGE SUBCUT (19:40)
[2024-12-02] MEDS: Labetalol HCL 100 MG/20 ML VIAL 20 MG IVPUSH (19:40)
[2024-12-02] MEDS: hydrALAZINE HCl 25 MG TABLET PO ×2 (19:40→20:31)
[2024-12-02] MEDS: hydrALAZINE HCl 20 MG/ML VIAL IVPUSH (20:31)
[2024-12-02] MEDS: Meclizine HCl 25 MG TABLET PO (20:31)
--- NOTE | 2024-12-02 23:19 | MHC.EDTECH ---
assisted pt to bathroom. Unsteady gate. Leaning to the right
[2024-12-03] VITALS (10 sets, daily range): BP systolic 144–181; BP diastolic 72–99; PULSE 75–88; RESP 16–18; TEMP 36.2–36.9; O2SAT 95–98
--- NOTE | 2024-12-03 00:30 | PC.NURSE ---
assumed care of pt at 23:15
--- NOTE | 2024-12-03 03:12 | PC.NURSE ---
upon ambulating with tech back to bed from bathroom, pt leaning to the right side more than normal, increasingly unsteady gait, weakness. pt placed back into bed and on monitor.
[2024-12-03] MEDS: Meclizine HCl 25 MG TABLET PO ×2 (03:17→16:19)
--- NOTE | 2024-12-03 03:20 | PC.NURSE ---
pt medicated with meclizine per mar for increased dizziness.
[2024-12-03 05:05] LABS: MANUAL DIFF FLAG NO
[2024-12-03 05:07] LABS: Basophils Percent Auto 0.3 % (0-2); Eosinophils Absolute Auto 0.1 X10*3/uL (0.0-0.4); Eosinophils Percent Auto 0.4 % (0-4); Hematocrit 35.8 % (37.0-47.0); Hemoglobin 12.4 g/dl (12.0-16.0); Imm Gran Abs Auto 0.03 X10*3/uL (0.00-0.03); Imm Gran Pct Auto 0.3 % (0.0-0.4); Lymphocytes Absolute Auto 1.7 X10*3/uL (1.2-4.9); Lymphocytes Percent Auto 14.5 % (20-40); Mean Corpuscular HGB Conc 34.6 g/dl (31.0-35.0); Mean Corpuscular Volume 89.5 fL (80.0-98.0); Mean Platelet Volume 10.1 fL (9.4-12.3); Monocytes Absolute Auto 0.6 X10*3/uL (0.1-1.2); Neutrophils Absolute Auto 9.1 x10*3/uL (2.0-8.3); Neutrophils Percent Auto 79.5 % (45-73); Platelet Count 366 X10*3/uL (160-400); Red Cell Distribution Width 12.6 % (11.0-16.0); White Blood Count 11.4 X10*3/uL (4.8-10.8)
[2024-12-03 05:24] LABS: Anion Gap 12 (12-20); Blood Urea Nitrogen 18 mg/dL (9-16); Calcium 8.6 mg/dL (8.4-10.2); Carbon Dioxide 24 mmol/L (22-29); Chloride 106 mmol/L (96-108); Creatinine Clr Calc Pharmacy 114.3; Estimated Glomerular Filt Rate > 60; Glucose Random 92 mg/dL (60-115); Potassium 3.7 mmol/L (3.3-5.1); Sodium 138 mmol/L (135-145)
--- NOTE | 2024-12-03 09:08 | PM.CNCAR ---
History of Present Illness History of Present Illness Date of Service: 12/03/24 Chief complaint: dizziness, n/v Narrative: This is a cardiology consultation regarding uncontrolled hypertension congestive heart failure. Patient states that she was living [place] in the past but has moved here. She has not taken hypertension medications for a while. Apparently, she was taking lisinopril. Current admissions because of ataxia, lightheadedness, nausea, vomiting, headache and in this context, found to have very high blood pressures of almost 200/104 mm Hg. She underwent a comprehensive workup and neuroimaging is essentially unremarkable. From the cardiac standpoint, underwent echocardiogram that shows LV dysfunction. Patient denies any previous cardiac history. She has been getting short of breath with activity for the last few months or so. She thought that was from a pneumonia that she had in August. She denies any anginal-type symptoms. Blood pressure is much better since the time of arrival but not normal. She is still complaining of vertigo type symptoms. Due to vertigo, he is not able to clearly see me. Review of Systems Review of Systems: Yes all other systems are reviewed and are negative Constitutional: Constitutional: Reports as per HPI and Reports no additional constitutional complaints Eyes: Eyes: Reports as per HPI and Denies no additional eye complaints ENT: Denies system reviewed and no additional complaints, except as documented, Reports as per HPI and Reports vertigo Cardiovascular: Cardiovascular: Reports as per HPI, Reports no additional cardiovascular complaints, Denies acrocyanosis, Denies cool extremities, Denies chest pain, Denies leg edema, Denies lightheadedness, Denies palpitations and Reports dyspnea Respiratory: Respiratory: Reports as per HPI, Denies no additional respiratory complaints and Reports dyspnea Gastrointestinal: Gastrointestinal: Reports as per HPI and Denies no additional gastrointestinal complaints Genitourinary: Genitourinary: Reports as per HPI Musculoskeletal: Musculoskeletal: Reports no additional musculoskeletal complaints, Reports as per HPI and Reports abnormal gait Integumentary/Breasts: Skin/Breast: Reports system reviewed and no additional complaints, except as docu Neurologic: Reports system reviewed and no additional complaints, except as documented, Reports as per HPI, Reports abnormal gait and Reports vertigo Psychiatric: Psychiatric: Reports no additional psychiatric complaints and Reports as per HPI Endocrine: Endocrine: Reports no additional endocrine complaints, Reports as per HPI and Denies palpitations Hematologic/Lymphatic: Hematologic/Lymphatic: Reports no additional hematologic/lymphatic complaints and Reports as per HPI Allergic/Immunologic: Allergic/Immunologic: Reports no additional allergic/immunologic complaints and Reports as per HPI [facility] Past Medical History Medical History (Updated 12/03/24 @ 09:13 by Ricardo Bolden MD) Hypertension Family History Family History (Updated 12/03/24 @ 09:11 by Ricardo Bolden MD) Father CAD (coronary artery disease) [place] disease Social History Social History Unable to assess alcohol history related to: Unknown Patient Tobacco Use Status: Current everyday Tobacco user Use of substances other than those prescribed or required for medical reasons: Unknown Advance Directives: No Advance Directives Information Provided: Yes Do you have a plan to hurt others: No Plan Nutrition Risks: No Nutritional Risk Patient : No service: No Meds Allergies Allergy/AdvReac Type Severity Reaction Status Date / Time No Known Allergies Allergy Verified 12/01/24 14:30 Active Medications: Current Medications Acetaminophen (Acetaminophen 325 Mg Tablet) 650 mg PO Q6H PRN PRN Reason: Pain, Mild 1-3,fever,headache Last Admin: 12/02/24 16:41 Dose: 650 mg Amlodipine Besylate (Amlodipine Besylate 10 Mg Tablet) 10 mg PO DAILY [facility]; Protocol Last Admin: 12/02/24 12:43 Dose: 10 mg Calcium Carbonate (Calcium Carbonate 750 Mg Tab.Chew) 750 mg PO Q4H PRN PRN Reason: Heartburn Carvedilol (Carvedilol 12.5 Mg Tablet) 12.5 mg PO BID [facility]; Protocol Enoxaparin Sodium (Enoxaparin Sodium 40 Mg/0.4 Ml Syringe) 40 mg SUBCUT Q24H [facility] Last Admin: 12/02/24 19:40 Dose: 40 mg Hydralazine HCl (Hydralazine Hcl 25 Mg Tablet) 25 mg PO TID [facility]; Protocol Last Admin: 12/02/24 20:31 Dose: 25 mg Lisinopril (Lisinopril 40 Mg Tablet) 40 mg PO DAILY [facility]; Protocol Last Admin: 12/02/24 12:44 Dose: 40 mg Magnesium Hydroxide (Milk Of Magnesia 30 Ml Oral.Susp) 30 ml PO DAILY PRN PRN Reason: Constipation Meclizine HCl (Meclizine Hcl 25 Mg Tablet) 25 mg PO Q6H PRN PRN Reason: Vertigo Last Admin: 12/03/24 03:17 Dose: 25 mg Melatonin (Melatonin 3 Mg Tablet) 6 mg PO BEDTIME PRN PRN Reason: Insomnia Ondansetron HCl (Ondansetron Hcl 4 Mg/2 Ml Vial) 4 mg IVPUSH Q8H PRN PRN Reason: Nausea and Vomiting Sodium Chloride (0.9 % Sodium Chloride Flush 3 Ml Syringe) 3 ml IVFLUSH QSHIFT [facility] Last Admin: 12/03/24 07:19 Dose: Not Given Spironolactone (Spironolactone 25 Mg Tablet) 12.5 mg PO BID@0900,1800 [facility]; Protocol Last Admin: 12/02/24 19:39 Dose: 12.5 mg Home Medications ?Medication ?Instructions ?Recorded ?Confirmed ?Last Taken ?Type No Known Home Meds 12/01/24 12/01/24 Unknown History Physical Exam Vital Signs: Vital Signs: Last Vital Signs Temp 98.2 F 12/03/24 04:27 Pulse 81 12/03/24 04:27 Resp 16 12/03/24 04:27 BP 157/92 H 12/03/24 04:27 Pulse Ox 98 12/03/24 04:27 O2 Del Method Room Air 12/03/24 04:27 BMI result Body Mass Index 28.1 Const: General: comfortable and no acute distress Orientation/consciousness: patient oriented x3 HEENT: Other: Unremarkable Head: Yes normal to inspection Neck: Neck: Yes normal visual inspection Chest: Chest palpation & inspection: normal inspection of the chest Resp: Auscultation: clear to auscultation bilaterally Cardio: Palpation: normal PMI Heart sounds: S1 normal heart sound present, S2 normal heart sound present, no gallops, no murmurs and no rubs GI: Palpation (GI): Soft to palpation Back/Spine/Pelvis: Other: unremarkable Skin: General skin exam: no rashes or lesions noted Neuro: General: patient oriented x3 Extrem: General: Yes normal to inspection Psych: Mental Status: mental status grossly normal Objective Labs and Meds 12/03/24 03:51 12/03/24 03:51 Lab results: Laboratory Results - last 24 hr 12/03/24 03:51 WBC 11.4 H RBC 4.00 L Hgb 12.4 Hct 35.8 L MCV 89.5 MCH 31.0 MCHC 34.6 RDW 12.6 Plt Count 366 MPV 10.1 Immature Gran % (Auto) 0.3 Neut % (Auto) 79.5 H Lymph % (Auto) 14.5 L [place] % (Auto) 5.0 Eos % (Auto) 0.4 Baso % (Auto) 0.3 Lymph # (Auto) 1.7 [place] # (Auto) 0.6 Eos # (Auto) 0.1 Baso # (Auto) 0.0 Abs Immat Gran (auto) 0.03 Absolute Neuts (auto) 9.1 H Absolute Nucleated RBC 0.000 Nucleated RBC % (auto) 0.0 Sodium 138 Potassium 3.7 Chloride 106 Carbon Dioxide 24 Anion Gap 12 BUN 18 H Creatinine 0.72 Estim Creat Clear Calc 114.3 Estimated GFR > 60 Random Glucose 92 Calcium 8.6 ECG Interpretation: EKG shows sinus rhythm at 81/Min; LVH with strain pattern. Less likely ischemia. Assessment and Plan (1) Hypertensive emergency: Status: Acute No home meds but currently has been put on carvedilol, amlodipine, lisinopril, spironolactone, hydralazine. Blood pressure seems much improved. Would not make any further changes at this time. (2) Acute on chronic combined systolic and diastolic CHF (congestive heart failure): Status: Acute In the echocardiogram, LVEF is 35% with moderate left ventricular hypertrophy. Moderate diastolic dysfunction. Basal inferior akinesis. Suspect longstanding poorly controlled hypertension as the etiology. Possible concurrent coronary disease. She will need ischemic workup as an outpatient. Consider coronary CTA versus diagnostic catheterization. It appears that she received some furosemide but no overt volume overload at this time. Procedures Date of Service Date of Service: 12/03/24
[2024-12-03] MEDS: amLODIPine Besylate 10 MG TABLET PO (09:49)
[2024-12-03] MEDS: Spironolactone 25 MG TABLET 12.5 MG PO ×2 (09:49→17:30)
[2024-12-03] MEDS: hydrALAZINE HCl 25 MG TABLET PO ×3 (09:49→17:30)
[2024-12-03] MEDS: carvediloL 12.5 MG TABLET PO ×2 (09:49→19:59)
[2024-12-03] MEDS: lisinopriL 40 MG TABLET PO (09:49)
--- NOTE | 2024-12-03 12:21 | HO.PM.IMPN ---
Subjective Subjective Date of Service: 12/03/24 Interval History: seen and evaluated this morning reports dizziness and Vertigo BP still running high but overall improved Decrease EF to 35% no other events Review of Systems Review of Systems: Yes all other systems are reviewed and are negative Physical Exam Vital Signs: Vital Signs: Last Vital Signs Temp 98.3 F 12/03/24 11:09 Pulse 85 12/03/24 11:09 Resp 18 12/03/24 11:09 BP 163/95 H 12/03/24 11:09 Pulse Ox 95 12/03/24 11:09 O2 Del Method Room Air 12/03/24 11:09 BMI result Body Mass Index 28.1 Const: Other: Constitutional : interactive, not in distress Cardiovascular : no JVP, trace bilateral lower extremity edema Respiratory : bilateral chest movement, not in resp distress, basal fine crackles Gastrointestinal: soft, lax, Non tender Skin : Warm, Dry Neurological : Alert & oriented , No focal deficit Objective Data Active Medications Acetaminophen (Acetaminophen 325 Mg Tablet) 650 mg PO Q6H PRN PRN Reason: Pain, Mild 1-3,fever,headache Last Admin: 12/02/24 16:41 Dose: 650 mg Documented By: TRACY Amlodipine Besylate (Amlodipine Besylate 10 Mg Tablet) 10 mg PO DAILY [facility]; Protocol Last Admin: 12/03/24 09:49 Dose: 10 mg Documented By: SIENNA Calcium Carbonate (Calcium Carbonate 750 Mg Tab.Chew) 750 mg PO Q4H PRN PRN Reason: Heartburn Carvedilol (Carvedilol 12.5 Mg Tablet) 12.5 mg PO BID [facility]; Protocol Last Admin: 12/03/24 09:49 Dose: 12.5 mg Documented By: SIENNA Enoxaparin Sodium (Enoxaparin Sodium 40 Mg/0.4 Ml Syringe) 40 mg SUBCUT Q24H [facility] Last Admin: 12/02/24 19:40 Dose: 40 mg Documented By: STACY Hydralazine HCl (Hydralazine Hcl 25 Mg Tablet) 25 mg PO TID [facility]; Protocol Last Admin: 12/03/24 09:49 Dose: 25 mg Documented By: SIENNA Lisinopril (Lisinopril 40 Mg Tablet) 40 mg PO DAILY [facility]; Protocol Last Admin: 12/03/24 09:49 Dose: 40 mg Documented By: SIENNA Magnesium Hydroxide (Milk Of Magnesia 30 Ml Oral.Susp) 30 ml PO DAILY PRN PRN Reason: Constipation Meclizine HCl (Meclizine Hcl 25 Mg Tablet) 25 mg PO Q6H PRN PRN Reason: Vertigo Last Admin: 12/03/24 03:17 Dose: 25 mg Documented By: RAAD Melatonin (Melatonin 3 Mg Tablet) 6 mg PO BEDTIME PRN PRN Reason: Insomnia Ondansetron HCl (Ondansetron Hcl 4 Mg/2 Ml Vial) 4 mg IVPUSH Q8H PRN PRN Reason: Nausea and Vomiting Sodium Chloride (0.9 % Sodium Chloride Flush 3 Ml Syringe) 3 ml IVFLUSH QSHIFT [facility] Last Admin: 12/03/24 07:19 Dose: Not Given Documented By: SHANTHI Non-Admin Reason: Previously Administered Spironolactone (Spironolactone 25 Mg Tablet) 12.5 mg PO BID@0900,1800 [facility]; Protocol Last Admin: 12/03/24 09:49 Dose: 12.5 mg Documented By: SIENNA Labs 12/03/24 03:51 12/03/24 03:51 Labs: Laboratory Results - last 24 hr 12/03/24 03:51 MCV 89.5 MCH 31.0 MCHC 34.6 RDW 12.6 Plt Count 366 MPV 10.1 Immature Gran % (Auto) 0.3 Neut % (Auto) 79.5 H Lymph % (Auto) 14.5 L [place] % (Auto) 5.0 Eos % (Auto) 0.4 Baso % (Auto) 0.3 Lymph # (Auto) 1.7 [place] # (Auto) 0.6 Eos # (Auto) 0.1 Baso # (Auto) 0.0 Abs Immat Gran (auto) 0.03 Absolute Neuts (auto) 9.1 H Absolute Nucleated RBC 0.000 Nucleated RBC % (auto) 0.0 Anion Gap 12 Estim Creat Clear Calc 114.3 Estimated GFR > 60 Random Glucose 92 Calcium 8.6 Assessment and Plan (1) Acute on chronic combined systolic and diastolic CHF (congestive heart failure): Status: Acute (2) Systolic heart failure: Status: Acute (3) Hypertensive emergency: Status: Acute (4) Ataxia: Status: Acute Plan Patient is a 44-year-old female with a past medical history significant for hypertension, depression and vertigo, who presented to the ED due to ataxia, lower extremity edema, presyncope, lightheadedness, nausea and vomiting. pre-sycope secondary to hypertensive emergency BP improved after multiple IV and PO medications Increase Amlodipine to 10 mg Lisinopril to 40 mg 12.5 bid Spironolactone and 12.5 bid Carvedilol Started on Hydralazine monitor BP check US for Renal artery stenosis Acute Pulmonary edema 2/2 new systolic heart failure echo showing low EF of 35% cardiac diet cardiology consult, will need ischemic workup as an outpatient. Consider coronary CTA versus diagnostic catheterization. dc lasix follow I\O and BNP Ataxia secondary to vertigo head CT, CT a head and neck and brain MRI all negative meclizine as needed Neurology consult PT\OT Full code VTE prophylaxis: Lovenox Patient with a presyncopal episode urgency complicated by pulmonary edema pulmonary effusion and heart failure, requiring overnight stay pending better control of blood pressure and improvement in vertigo Quality Stroke Does the patient have a stroke diagnosis?: No VTE Prior VTE?: No VTE Risk Level:: Medical - moderate - high VTE Device Contraindication: Treatment Not Indicated VTE Drug Contraindication: N/A - Med Ordered
--- NOTE | 2024-12-03 13:01 | P.CNNE_ITS ---
History of Present Illness Data of Consult Service Date: 12/03/24 Primary Care Provider: None Physician HPI Reason for consult: DIZZINESS 44 YEARS OLD WOMAN WITH UNTREATED OR UNCONTROLLED HYPERTENSION CAME TO HOSPITAL FOR DIZZINESS. INITIALLY HER BLOOD PRESSURE WAS 200 SYSTOLIC AND SHE WAS COMPLAINING OF DIZZINESS NAUSEA AND VOMITING. THERE WAS NO SIGN OF ANY RECENT FEVER CHILLS OR COLD OR FLU-LIKE ILLNESS. SHE HAD MULTIPLE INVESTIGATIONS DONE REPORTING NO EXPLANATION FOR HER DIZZINESS AND THIS CONSULTATION WAS OBTAINED. SHE HAS BEEN COMPLAINING OF ONE-SIDED HEADACHE IN THE PAST BUT TODAY SHE DID NOT HAVE ANY HEADACHE. SHE DESCRIBED HER DIZZINESS TO BE UNSTEADY WHEN SHE TRIED TO WALK. SOMETIME SHE ALSO HAD SPINNING SENSATION TYPE OF DIZZINESS. THERE WAS NO ASSOCIATED FOCAL WEAKNESS OR SPEECH OR LANGUAGE DIFFICULTY. Review of Systems 2 Review of Systems: NO OBVIOUS COLD OR FLU-LIKE ILLNESS. [facility] Past Medical History Medical History (Updated 12/03/24 @ 13:05 by Ivanna Bucio MD) Hypertension Family History Family History (Updated 12/03/24 @ 09:11 by Ricardo Bolden MD) Father CAD (coronary artery disease) Buerger disease Social History Social History Unable to assess alcohol history related to: Unknown Patient Tobacco Use Status: Current everyday Tobacco user service: No Meds Allergies Allergy/AdvReac Type Severity Reaction Status Date / Time No Known Allergies Allergy Verified 12/01/24 14:30 Active Medications: Current Medications Acetaminophen (Acetaminophen 325 Mg Tablet) 650 mg PO Q6H PRN PRN Reason: Pain, Mild 1-3,fever,headache Last Admin: 12/02/24 16:41 Dose: 650 mg Amlodipine Besylate (Amlodipine Besylate 10 Mg Tablet) 10 mg PO DAILY [facility]; Protocol Last Admin: 12/03/24 09:49 Dose: 10 mg Calcium Carbonate (Calcium Carbonate 750 Mg Tab.Chew) 750 mg PO Q4H PRN PRN Reason: Heartburn Carvedilol (Carvedilol 12.5 Mg Tablet) 12.5 mg PO BID [facility]; Protocol Last Admin: 12/03/24 09:49 Dose: 12.5 mg Enoxaparin Sodium (Enoxaparin Sodium 40 Mg/0.4 Ml Syringe) 40 mg SUBCUT Q24H [facility] Last Admin: 12/02/24 19:40 Dose: 40 mg Hydralazine HCl (Hydralazine Hcl 25 Mg Tablet) 25 mg PO TID [facility]; Protocol Last Admin: 12/03/24 09:49 Dose: 25 mg Lisinopril (Lisinopril 40 Mg Tablet) 40 mg PO DAILY [facility]; Protocol Last Admin: 12/03/24 09:49 Dose: 40 mg Magnesium Hydroxide (Milk Of Magnesia 30 Ml Oral.Susp) 30 ml PO DAILY PRN PRN Reason: Constipation Meclizine HCl (Meclizine Hcl 25 Mg Tablet) 25 mg PO Q6H PRN PRN Reason: Vertigo Last Admin: 12/03/24 03:17 Dose: 25 mg Melatonin (Melatonin 3 Mg Tablet) 6 mg PO BEDTIME PRN PRN Reason: Insomnia Ondansetron HCl (Ondansetron Hcl 4 Mg/2 Ml Vial) 4 mg IVPUSH Q8H PRN PRN Reason: Nausea and Vomiting Sodium Chloride (0.9 % Sodium Chloride Flush 3 Ml Syringe) 3 ml IVFLUSH QSHIFT [facility] Last Admin: 12/03/24 07:19 Dose: Not Given Spironolactone (Spironolactone 25 Mg Tablet) 12.5 mg PO BID@0900,1800 [facility]; Protocol Last Admin: 12/03/24 09:49 Dose: 12.5 mg Home Medications ?Medication ?Instructions ?Recorded ?Confirmed ?Last Taken ?Type No Known Home Meds 12/01/24 12/01/24 Unknown History Physical Exam 2 Vital Signs: Vital Signs: Last Vital Signs Temp 98.3 F 12/03/24 11:09 Pulse 85 12/03/24 11:09 Resp 18 12/03/24 11:09 BP 163/95 H 12/03/24 11:09 Pulse Ox 95 12/03/24 11:09 O2 Del Method Room Air 12/03/24 11:09 BMI result Body Mass Index 28.1 Neuro: Other: ALERT AND AWAKE WITH NORMAL SPONTANEITY OF SPEECH FLUENCY COMPREHENSION AND FLAT AFFECT. FACE IS SYMMETRICAL. VISUAL BIRD ARE FULL. [id number] TESTING IS OKAY. THERE IS NO PRONATOR DRIFT. DEEP TENDON REFLEXES ARE TRACE WITH FLEXOR PLANTARS. SPEECH IS NORMAL. Results Labs 12/03/24 03:51 12/03/24 03:51 Labs: Short CBC 12/03/24 Range/Units 03:51 WBC 11.4 H (4.8-10.8) X10*3/uL Hgb 12.4 (12.0-16.0) g/dl Hct 35.8 L (37.0-47.0) % Plt Count 366 (160-400) X10*3/uL [facility] 12/03/24 03:51 Sodium 138 Potassium 3.7 Chloride 106 Carbon Dioxide 24 BUN 18 H Creatinine 0.[address] DID NOT REVEAL ANY OBVIOUS ABNORMALITY. CTA OF BRAIN AND NECK DID NOT REVEAL ANY VASCULAR LESION. MRI OF BRAIN REVEALED QUITE SIGNIFICANT PONTINE AND MIDBRAIN AREA OF ABNORMALITY ON DWI SEQUENCE AND FLAIR. MINIMAL MICROVASCULAR DISEASE WAS NOTED OTHERWISE. 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 HER BRAIN MRI REVEALED SIGNIFICANT PONTINE AND MIDBRAIN AREA SIGNAL ABNORMALITY SUGGESTIVE OF MYELINOLYSIS TYPE OF PATHOLOGY. TYPICAL REASONS ARE ALCOHOL BINGE DRINKING, LIVER DISEASE MALNUTRITION OR INFECTION LIKE HIV DISEASE. I RECOMMEND TREATMENT OF HYPERTENSION, TOX SCREEN, HIV TEST, AND TREATMENT WITH MULTIVITAMINS SPECIALLY B COMPLEX VITAMINS. OTHERWISE, PT OT CONSULTATION IS RECOMMENDED. Procedures Date of Service Date of Service: 12/03/24
[2024-12-03] MEDS: Folic Acid 1 MG TABLET PO (15:12)
[2024-12-03] MEDS: Thiamine HCL 100 MG TABLET PO (15:12)
[2024-12-03] MEDS: Multivitamin TABLET 1 TAB PO (15:12)
[2024-12-03] MEDS: predniSONE 10 MG TABLET 50 MG PO (15:12)
[2024-12-03] MEDS: Furosemide 20 MG/2 ML VIAL IVPUSH (15:12)
[2024-12-03] MEDS: 0.9 % Sodium Chloride Flush 3 ML SYRINGE IVFLUSH ×2 (15:16→20:00)
[2024-12-03 16:05] LABS: Amphetamine Screen Urine Not Detected (Not Detect); Barbiturates, Urine Not Detected (Not Detect); Benzodiazepines Screen Urine Not Detected (Not Detect); Buprenorphine Scr Not Detected (Not Detect); Cannabinoid Screen Urine Not Detected (Not Detect); Cocaine Screen Urine Not Detected (Not Detect); Fentanyl, urine Not Detected (Not Detect); Methadone Screen, Urine Not Detected (Not Detect); Opiate Screen Urine POSITIVE (Not Detect); Oxycodone Screen Urine Not Detected (Not Detect); Phencyclidine Screen Urine Not Detected (Not Detect)
[2024-12-03] MEDS: diazePAM 2 MG TABLET PO (16:20)
--- NOTE | 2024-12-03 19:08 | PC.NURSE ---
Patient arrived to the unit at 0920 in the bed from ED. Patient alert and oriented c/o severe headache, dizziness. VS checked BP elevated at 168/98, provider notified. Patient refused bedside commode at first requesting to be assisted to the bathroom. Patient was having difficulty ambulating, very weak, unsteady, unable to keep balance, patient finally agreed to the commode and was provided. Patient continued to have elevated BP, provider made aware and medication adjusted. Patient unable to tolerated PO intake, even small sip of fluid triggers retching. Patient was able to take PO meds with very small amount of water. Neuro consulted, symptoms come and go, per patient she gets sudden onset of severe headache, and it slowly passes. PRN medication ordered for headache, patient was offered the med and refused stating headache was minimal at that time.
[2024-12-03] MEDS: hydrALAZINE HCl 50 MG TABLET PO (19:59)
[2024-12-03] MEDS: Butalb/Acetamin/Caff 50/325/40 TABLET 1 TAB PO (19:59)
[2024-12-03] MEDS: Enoxaparin Sodium 40 MG/0.4 ML SYRINGE SUBCUT (20:00)
[2024-12-04] VITALS (9 sets, daily range): BP systolic 130–174; BP diastolic 64–102; PULSE 77–97; RESP 14–20; TEMP 36.1–37; O2SAT 97–99
[2024-12-04] MEDS: Meclizine HCl 25 MG TABLET PO ×4 (00:07→23:46)
[2024-12-04 07:30] LABS: Anion Gap 14 (12-20); Blood Urea Nitrogen 17 mg/dL (9-16); Calcium 8.8 mg/dL (8.4-10.2); Carbon Dioxide 21 mmol/L (22-29); Chloride 105 mmol/L (96-108); Creatinine Clr Calc Pharmacy 114.3; Estimated Glomerular Filt Rate > 60; Glucose Random 107 mg/dL (60-115); Potassium 3.9 mmol/L (3.3-5.1); Sodium 136 mmol/L (135-145)
[2024-12-04 07:41] LABS: B Type Natriuretic Peptide 207 pg/mL (<100)
[2024-12-04] MEDS: carvediloL 12.5 MG TABLET PO ×2 (08:33→21:08)
[2024-12-04 08:34] LABS: HIV AB/AG Nonreactive (Nonreactive); HIV Num 1 0.07 S/CO (0.00-0.99)
[2024-12-04] MEDS: diazePAM 2 MG TABLET PO ×3 (08:34→21:08)
[2024-12-04] MEDS: Multivitamin TABLET 1 TAB PO (08:34)
[2024-12-04] MEDS: Thiamine HCL 100 MG TABLET PO (08:34)
[2024-12-04] MEDS: Folic Acid 1 MG TABLET PO (08:34)
[2024-12-04] MEDS: amLODIPine Besylate 10 MG TABLET PO (08:34)
[2024-12-04] MEDS: hydrALAZINE HCl 50 MG TABLET PO (08:34)
[2024-12-04] MEDS: Spironolactone 25 MG TABLET PO (08:35)
[2024-12-04] MEDS: 0.9 % Sodium Chloride Flush 3 ML SYRINGE IVFLUSH ×3 (08:35→21:08)
[2024-12-04] MEDS: predniSONE 10 MG TABLET 50 MG PO (08:35)
[2024-12-04] MEDS: Furosemide 20 MG/2 ML VIAL IVPUSH (08:39)
--- NOTE | 2024-12-04 10:51 | P.PNCA_ITS ---
Subjective Subjective Date of Service: 12/04/24 Interval history: Seen at bedside and also discussed with sister. Patient is somewhat better than before. No active cardiac symptoms. Review of Systems Review of Systems Yes all other systems are reviewed and are negative Constitutional: Reports as per HPI and Reports no additional constitutional complaints Eyes: Reports as per HPI and Denies no additional eye complaints Denies system reviewed and no additional complaints, except as documented and Reports as per HPI Cardiovascular: Reports as per HPI, Reports no additional cardiovascular complaints, Denies acrocyanosis, Denies cool extremities, Denies chest pain, Denies leg edema, Denies lightheadedness, Denies palpitations and Denies dyspnea Respiratory: Reports as per HPI, Denies no additional respiratory complaints and Denies dyspnea Gastrointestinal: Reports as per HPI and Denies no additional gastrointestinal complaints Genitourinary: Reports as per HPI Musculoskeletal: Reports no additional musculoskeletal complaints and Reports as per HPI Skin/Breast: Reports system reviewed and no additional complaints, except as docu Reports system reviewed and no additional complaints, except as documented and Reports as per HPI Psychiatric: Reports no additional psychiatric complaints and Reports as per HPI Endocrine: Reports no additional endocrine complaints, Reports as per HPI and Denies palpitations Hematologic/Lymphatic: Reports no additional hematologic/lymphatic complaints and Reports as per HPI Allergic/Immunologic: Reports no additional allergic/immunologic complaints and Reports as per HPI Physical Exam Vital Signs: Last Vital Signs Temp 97.4 F 12/04/24 10:38 Pulse 78 12/04/24 10:38 Resp 20 12/04/24 10:38 BP 130/64 12/04/24 10:38 Pulse Ox 99 12/04/24 10:38 O2 Del Method Room Air 12/04/24 10:38 BMI result Body Mass Index 28.1 Const General: comfortable and no acute distress Orientation/consciousness: patient oriented x3 HEENT Other: Unremarkable Head: Yes normal to inspection Neck Neck: Yes normal visual inspection Chest Chest palpation & inspection: normal inspection of the chest Resp Auscultation: clear to auscultation bilaterally Cardio Palpation: normal PMI Heart sounds: S1 normal heart sound present, S2 normal heart sound present, no gallops, no murmurs and no rubs GI Palpation (GI): Soft to palpation Back/Spine/Pelvis Other: unremarkable Skin General skin exam: no rashes or lesions noted Neuro General: patient oriented x3 Extrem General: Yes normal to inspection Psych Mental Status: mental status grossly normal Objective Labs and Meds 12/03/24 03:51 12/04/24 06:27 Lab results: Laboratory Results - last 24 hr 12/03/24 12/03/24 12/04/24 14:53 15:49 06:27 Sodium 136 Potassium 3.9 Chloride 105 Carbon Dioxide 21 L Anion Gap 14 BUN 17 H Creatinine 0.72 Estim Creat Clear Calc 114.3 Estimated GFR > 60 Random Glucose 107 Calcium 8.8 B-Natriuretic Peptide 207 H Urine Opiates Screen POSITIVE H Ur Buprenorphine Scrn Not Detected Ur Oxycodone Screen Not Detected Urine Methadone Screen Not Detected Urine Fentanyl Screen Not Detected Ur Barbiturates Screen Not Detected Ur Phencyclidine Scrn Not Detected Ur Amphetamines Screen Not Detected U Benzodiazepines Scrn Not Detected Urine Cocaine Screen Not Detected U Marijuana (THC) Screen Not Detected HIV 1&2 Ab/P24 Ag 4thGn Nonreactive Imaging Radiologist's impression: Impressions Renal Ultrasound 12/03/24 13:45 IMPRESSION: 1. No evidence of renal artery stenosis or abnormal waveforms bilaterally on color/spectral Doppler examination (based on peak systolic velocities and resistive indices). 2. Renal parenchyma is normal. Electronically signed by: Angel Rea MD 12/03/2024 02:40 PM [facility] [place]: A&P Assessment and plan (1) Hypertensive emergency: Status: Acute Assessment and Plan: No home meds but currently has been put on carvedilol, amlodipine, lisinopril, spironolactone, hydralazine. Blood pressure is getting better. We will make further changes with time. Some of this we will have to get done rather as an outpatient. We will also check renal ultrasound. (2) Acute on chronic combined systolic and diastolic CHF (congestive heart failure): Status: Acute Assessment and Plan: In the echocardiogram, LVEF is 35% with moderate left ventricular hypertrophy. Moderate diastolic dysfunction. Basal inferior akinesis. Suspect longstanding poorly controlled hypertension as the etiology. Possible concurrent coronary disease. She will need ischemic workup as an outpatient. Consider coronary CTA versus diagnostic catheterization. It appears that she received some furosemide but no overt volume overload at this time. Time Spent With Patient Time: Total time managing care of this patient today ____ minutes. Progress Note: Quality Stroke Does the patient have a stroke diagnosis?: No Procedures Date of Service Date of Service: 12/04/24
--- NOTE | 2024-12-04 13:34 | P.PNIM_ITS ---
Subjective Subjective Date of Service: 12/04/24 Interval History: seen and evaluated this morning reports dizziness and Vertigo has improved a little BP still running high but overall improved working with PT no other events Review of Systems Review of Systems: Yes all other systems are reviewed and are negative Physical Exam 2 Vital Signs: Vital Signs: Last Vital Signs Temp 97.4 F 12/04/24 10:38 Pulse 78 12/04/24 10:38 Resp 20 12/04/24 10:38 BP 130/64 12/04/24 10:38 Pulse Ox 99 12/04/24 10:38 O2 Del Method Room Air 12/04/24 10:38 BMI result Body Mass Index 28.1 Const: Other: Constitutional : interactive, not in distress Cardiovascular : no JVP, trace bilateral lower extremity edema Respiratory : bilateral chest movement, not in resp distress, basal fine crackles Gastrointestinal: soft, lax, Non tender Skin : Warm, Dry Neurological : Alert & oriented , No focal deficit , mild right sided facial parasthesia Objective Data Active Medications Acetaminophen (Acetaminophen 325 Mg Tablet) 650 mg PO Q6H PRN PRN Reason: Pain, Mild 1-3,fever,headache Last Admin: 12/02/24 16:41 Dose: 650 mg Documented By: TRACY Acetaminophen/Butalbital/Caffeine (Butalb/Acetamin/Caff 50/325/40 Tablet) 1 tab PO Q4H PRN PRN Reason: Headache Last Admin: 12/03/24 19:59 Dose: 1 tab Documented By: YESENIA Amlodipine Besylate (Amlodipine Besylate 10 Mg Tablet) 10 mg PO DAILY [facility]; Protocol Last Admin: 12/04/24 08:34 Dose: 10 mg Documented By: ELIAZAR Calcium Carbonate (Calcium Carbonate 750 Mg Tab.Chew) 750 mg PO Q4H PRN PRN Reason: Heartburn Carvedilol (Carvedilol 12.5 Mg Tablet) 12.5 mg PO BID [facility]; Protocol Last Admin: 12/04/24 08:33 Dose: 12.5 mg Documented By: ELIAZAR Diazepam (Diazepam 2 Mg Tablet) 2 mg PO TID [facility] Last Admin: 12/04/24 08:34 Dose: 2 mg Documented By: ELIAZAR Enoxaparin Sodium (Enoxaparin Sodium 40 Mg/0.4 Ml Syringe) 40 mg SUBCUT Q24H [facility] Last Admin: 12/03/24 20:00 Dose: 40 mg Documented By: YESENIA Folic Acid (Folic Acid 1 Mg Tablet) 1 mg PO DAILY [facility] Last Admin: 12/04/24 08:34 Dose: 1 mg Documented By: ELIAZAR Furosemide (Furosemide 20 Mg/2 Ml Vial) 20 mg IVPUSH DAILY [facility]; Protocol Last Admin: 12/04/24 08:39 Dose: 20 mg Documented By: ELIAZAR Hydralazine HCl (Hydralazine Hcl 50 Mg Tablet) 50 mg PO TID [facility]; Protocol Last Admin: 12/04/24 08:34 Dose: 50 mg Documented By: ELIAZAR Magnesium Hydroxide (Milk Of Magnesia 30 Ml Oral.Susp) 30 ml PO DAILY PRN PRN Reason: Constipation Meclizine HCl (Meclizine Hcl 25 Mg Tablet) 25 mg PO Q8H [facility] Last Admin: 12/04/24 08:35 Dose: 25 mg Documented By: ELIAZAR Melatonin (Melatonin 3 Mg Tablet) 6 mg PO BEDTIME PRN PRN Reason: Insomnia Multivitamins/Vitamin C (Multivitamin Tablet) 1 tab PO DAILY [facility] Last Admin: 12/04/24 08:34 Dose: 1 tab Documented By: ELIAZAR Ondansetron HCl (Ondansetron Hcl 4 Mg/2 Ml Vial) 4 mg IVPUSH Q8H PRN PRN Reason: Nausea and Vomiting Prednisone (Prednisone 10 Mg Tablet) 50 mg PO DAILY [facility] Last Admin: 12/04/24 08:35 Dose: 50 mg Documented By: ELIAZAR Sacubitril/Valsartan (Sacubitril/Valsartan 49/51 1 Tab Tablet) 1 tab PO BID [facility]; Protocol Sodium Chloride (0.9 % Sodium Chloride Flush 3 Ml Syringe) 3 ml IVFLUSH QSHIFT [facility] Last Admin: 12/04/24 08:35 Dose: 3 ml Documented By: ELIAZAR Spironolactone (Spironolactone 25 Mg Tablet) 25 mg PO DAILY [facility]; Protocol Last Admin: 12/04/24 08:35 Dose: 25 mg Documented By: ELIAZAR Thiamine HCl (Thiamine Hcl 100 Mg Tablet) 100 mg PO DAILY [facility] Last Admin: 12/04/24 08:34 Dose: 100 mg Documented By: ELIAZAR Labs 12/03/24 03:51 12/04/24 06:27 Labs: Laboratory Results - last 24 hr 12/03/24 12/03/24 12/04/24 14:53 15:49 06:27 Anion Gap 14 Estim Creat Clear Calc 114.3 Estimated GFR > 60 Random Glucose 107 Calcium 8.8 B-Natriuretic Peptide 207 H Urine Opiates Screen POSITIVE H Ur Buprenorphine Scrn Not Detected Ur Oxycodone Screen Not Detected Urine Methadone Screen Not Detected Urine Fentanyl Screen Not Detected Ur Barbiturates Screen Not Detected Ur Phencyclidine Scrn Not Detected Ur Amphetamines Screen Not Detected U Benzodiazepines Scrn Not Detected Urine Cocaine Screen Not Detected U Marijuana (THC) Screen Not Detected HIV 1&2 Ab/P24 Ag 4thGn Nonreactive Assessment and Plan (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 hypertensive emergency with pre-syncope Better control Continue Amlodipine to 10 mg Hold Lisinopril to 40 mg and switch to Enteresto 25 mg daily Spironolactone and 12.5 bid Carvedilol Hydralazine 25 mg tid for now To adjust as needed. mainly as outpatient monitor BP Doppler US negative for Renal artery stenosis Acute Pulmonary edema 2/2 new systolic heart failure echo showing low EF of 35% cardiac diet cardiology consult, will need ischemic workup as an outpatient. Consider coronary CTA versus diagnostic catheterization. continue daily IV lasix follow I\O and BNP Ataxia, vertigo head CT, CT a head and neck negative for acute findings MRI showing central and extra-pontine Myelinolysis per Neurology evaluation Start B-Complex and thiamine supplement meclizine and Diazepam TID Prednisone tapering dose for possible vestibular neuritis PT\OT rec STR Full code VTE prophylaxis: Lovenox Patient with a presyncopal episode urgency complicated by pulmonary edema pulmonary effusion and heart failure, requiring overnight stay pending better control of blood pressure and improvement in vertigo Quality Stroke Does the patient have a stroke diagnosis?: No VTE Prior VTE?: No VTE Risk Level:: Medical - moderate - high VTE Device Contraindication: Treatment Not Indicated VTE Drug Contraindication: N/A - Med Ordered
--- NOTE | 2024-12-04 14:47 | MHC.CM.PN ---
Addendum entered by Nathaly Neri RN 12/04/24 15:45: CM RECEIVED A MESSAGE FROM [facility] WHO REPORT THEY ARE NOT CONTRACTED W/PT'S BLUE CROSS PLAN, [facility] AND [facility] FOLLOWING, CM MET W/PT WHO REPORTS [facility] IS THEIR NEW PREFERRED AR. Addendum entered by Nathaly Neri RN 12/04/24 15:18: clarification new pt appt 12/28 at 1:15pm Original Note: PT W/HYPERTENSIVE EMERGENCY/PRESYNCOPE, VERTIGO/ATAXIA, PULMONARY EDEMA, P.T. RECOMMENDING ACUTE REHAB, CM MET W/PT AND FAMILY AND PT REPORTS SHE [place]ES [place] [address] FROM [place] AND PREFERRED FACILITY IS [facility] HOWEVER WOULD BE AGREEABLE TO ANY. PT REQUESTED CM SEE IF PT'S NEW PT APPOINTMENT W/DR. LANGE AT [facility], DR. LANGE'S OFFICE REPORTS THEY CAN SEE PT ON 12/28 AT 1:30PM, CM WILL LET PT/FAMILY KNOW AND ADD TO DC PAPERWORK. CM WILL CONT TO FOLLOW DC NEEDS.
[2024-12-04] MEDS: hydrALAZINE HCl 25 MG TABLET PO ×2 (15:11→21:08)
[2024-12-04] MEDS: Enoxaparin Sodium 40 MG/0.4 ML SYRINGE SUBCUT (21:07)
[2024-12-04] MEDS: Sacubitril/Valsartan 49/51 1 TAB TABLET PO (21:08)
[2024-12-05] VITALS (8 sets, daily range): BP systolic 121–155; BP diastolic 70–108; PULSE 77–93; RESP 16–20; TEMP 36.1–36.4; O2SAT 97–98
[2024-12-05 07:22] LABS: MANUAL DIFF FLAG NO
[2024-12-05 07:26] LABS: Basophils Absolute Auto 0.1 X10*3/uL (0.0-0.2); Basophils Percent Auto 0.5 % (0-2); Eosinophils Absolute Auto 0.1 X10*3/uL (0.0-0.4); Hematocrit 42.3 % (37.0-47.0); Hemoglobin 14.3 g/dl (12.0-16.0); Imm Gran Abs Auto 0.06 X10*3/uL (0.00-0.03); Imm Gran Pct Auto 0.4 % (0.0-0.4); Lymphocytes Absolute Auto 3.4 X10*3/uL (1.2-4.9); Lymphocytes Percent Auto 25.5 % (20-40); Mean Corpuscular HGB Conc 33.8 g/dl (31.0-35.0); Mean Corpuscular Hemoglobin 30.4 pg (27.0-33.0); Mean Corpuscular Volume 89.8 fL (80.0-98.0); Mean Platelet Volume 10.3 fL (9.4-12.3); Monocytes Absolute Auto 0.8 X10*3/uL (0.1-1.2); Monocytes Percent Auto 5.8 % (2-11); Neutrophils Absolute Auto 8.9 x10*3/uL (2.0-8.3); Neutrophils Percent Auto 66.8 % (45-73); Platelet Count 376 X10*3/uL (160-400); Red Blood Count 4.71 X10*6/uL (4.20-5.50); Red Cell Distribution Width 12.7 % (11.0-16.0); White Blood Count 13.4 X10*3/uL (4.8-10.8)
[2024-12-05 07:42] LABS: Anion Gap 14 (12-20); Blood Urea Nitrogen 21 mg/dL (9-16); Calcium 8.3 mg/dL (8.4-10.2); Carbon Dioxide 22 mmol/L (22-29); Chloride 108 mmol/L (96-108); Estimated Glomerular Filt Rate > 60; Glucose Random 94 mg/dL (60-115); Potassium 3.8 mmol/L (3.3-5.1); Sodium 140 mmol/L (135-145)
[2024-12-05] MEDS: Sacubitril/Valsartan 49/51 1 TAB TABLET PO ×2 (09:23→22:06)
[2024-12-05] MEDS: 0.9 % Sodium Chloride Flush 3 ML SYRINGE IVFLUSH ×2 (09:23→15:20)
[2024-12-05] MEDS: diazePAM 2 MG TABLET PO ×3 (09:23→22:06)
[2024-12-05] MEDS: hydrALAZINE HCl 25 MG TABLET PO ×2 (09:24→15:19)
[2024-12-05] MEDS: carvediloL 12.5 MG TABLET PO ×2 (09:24→22:05)
[2024-12-05] MEDS: Meclizine HCl 25 MG TABLET PO ×2 (09:24→15:19)
[2024-12-05] MEDS: Multivitamin TABLET 1 TAB PO (09:24)
[2024-12-05] MEDS: predniSONE 10 MG TABLET 50 MG PO (09:24)
[2024-12-05] MEDS: amLODIPine Besylate 10 MG TABLET PO (09:24)
[2024-12-05] MEDS: Thiamine HCL 100 MG TABLET PO (09:24)
[2024-12-05] MEDS: Cyanocobalamin (Vitamin B-12) 500 MCG TABLET PO (09:24)
[2024-12-05] MEDS: Furosemide 20 MG/2 ML VIAL IVPUSH (09:24)
[2024-12-05] MEDS: Spironolactone 25 MG TABLET PO (09:24)
[2024-12-05] MEDS: Folic Acid 1 MG TABLET PO (09:24)
--- NOTE | 2024-12-05 15:31 | HO.PM.IMPN ---
Subjective Subjective Date of Service: 12/05/24 Interval History: seen and evaluated this morning dizziness and Vertigo has been improving BP better controlled working with PT no other events Review of Systems Review of Systems: Yes all other systems are reviewed and are negative Physical Exam Vital Signs: Vital Signs: Last Vital Signs Temp 97.4 F 12/05/24 15:03 Pulse 93 12/05/24 15:03 Resp 20 12/05/24 15:03 BP 124/71 12/05/24 15:19 Pulse Ox 97 12/05/24 15:03 O2 Del Method Room Air 12/05/24 15:03 BMI result Body Mass Index 28.1 Const: Other: Constitutional : interactive, not in distress Cardiovascular : no JVP, trace bilateral lower extremity edema Respiratory : bilateral chest movement, not in resp distress, basal fine crackles Gastrointestinal: soft, lax, Non tender Skin : Warm, Dry Neurological : Alert & oriented , No focal deficit , mild right sided facial parasthesia Objective Data Active Medications Acetaminophen (Acetaminophen 325 Mg Tablet) 650 mg PO Q6H PRN PRN Reason: Pain, Mild 1-3,fever,headache Last Admin: 12/02/24 16:41 Dose: 650 mg Documented By: TRACY Acetaminophen/Butalbital/Caffeine (Butalb/Acetamin/Caff 50/325/40 Tablet) 1 tab PO Q4H PRN PRN Reason: Headache Last Admin: 12/03/24 19:59 Dose: 1 tab Documented By: YESENIA Amlodipine Besylate (Amlodipine Besylate 10 Mg Tablet) 10 mg PO DAILY [facility]; Protocol Last Admin: 12/05/24 09:24 Dose: 10 mg Documented By: OLGA Calcium Carbonate (Calcium Carbonate 750 Mg Tab.Chew) 750 mg PO Q4H PRN PRN Reason: Heartburn Carvedilol (Carvedilol 12.5 Mg Tablet) 12.5 mg PO BID [facility]; Protocol Last Admin: 12/05/24 09:24 Dose: 12.5 mg Documented By: OLGA Cyanocobalamin (Cyanocobalamin (Vitamin B-12) 500 Mcg Tablet) 500 mcg PO DAILY [facility] Last Admin: 12/05/24 09:24 Dose: 500 mcg Documented By: OLGA Diazepam (Diazepam 2 Mg Tablet) 2 mg PO TID [facility] Last Admin: 12/05/24 15:19 Dose: 2 mg Documented By: OLGA Enoxaparin Sodium (Enoxaparin Sodium 40 Mg/0.4 Ml Syringe) 40 mg SUBCUT Q24H [facility] Last Admin: 12/04/24 21:07 Dose: 40 mg Documented By: YESENIA Folic Acid (Folic Acid 1 Mg Tablet) 1 mg PO DAILY [facility] Last Admin: 12/05/24 09:24 Dose: 1 mg Documented By: OLGA Furosemide (Furosemide 20 Mg/2 Ml Vial) 20 mg IVPUSH DAILY [facility]; Protocol Last Admin: 12/05/24 09:24 Dose: 20 mg Documented By: OLGA Hydralazine HCl (Hydralazine Hcl 25 Mg Tablet) 25 mg PO TID [facility]; Protocol Last Admin: 12/05/24 15:19 Dose: 25 mg Documented By: OLGA Magnesium Hydroxide (Milk Of Magnesia 30 Ml Oral.Susp) 30 ml PO DAILY PRN PRN Reason: Constipation Meclizine HCl (Meclizine Hcl 25 Mg Tablet) 25 mg PO Q8H [facility] Last Admin: 12/05/24 15:19 Dose: 25 mg Documented By: OLGA Melatonin (Melatonin 3 Mg Tablet) 6 mg PO BEDTIME PRN PRN Reason: Insomnia Multivitamins/Vitamin C (Multivitamin Tablet) 1 tab PO DAILY [facility] Last Admin: 12/05/24 09:24 Dose: 1 tab Documented By: OLGA Ondansetron HCl (Ondansetron Hcl 4 Mg/2 Ml Vial) 4 mg IVPUSH Q8H PRN PRN Reason: Nausea and Vomiting Prednisone (Prednisone 10 Mg Tablet) 50 mg PO DAILY [facility] Last Admin: 12/05/24 09:24 Dose: 50 mg Documented By: OLGA Sacubitril/Valsartan (Sacubitril/Valsartan 49/51 1 Tab Tablet) 1 tab PO BID [facility]; Protocol Last Admin: 12/05/24 09:23 Dose: 1 tab Documented By: OLGA Sodium Chloride (0.9 % Sodium Chloride Flush 3 Ml Syringe) 3 ml IVFLUSH QSHIFT [facility] Last Admin: 12/05/24 15:20 Dose: 3 ml Documented By: OLGA Spironolactone (Spironolactone 25 Mg Tablet) 25 mg PO DAILY [facility]; Protocol Last Admin: 12/05/24 09:24 Dose: 25 mg Documented By: OLGA Thiamine HCl (Thiamine Hcl 100 Mg Tablet) 100 mg PO DAILY [facility] Last Admin: 12/05/24 09:24 Dose: 100 mg Documented By: OLGA Labs 12/05/24 06:30 12/05/24 06:30 Labs: Laboratory Results - last 24 hr 12/05/24 06:30 MCV 89.8 MCH 30.4 MCHC 33.8 RDW 12.7 Plt Count 376 MPV 10.3 Immature Gran % (Auto) 0.4 Neut % (Auto) 66.8 Lymph % (Auto) 25.5 [place] % (Auto) 5.8 Eos % (Auto) 1.0 Baso % (Auto) 0.5 Lymph # (Auto) 3.4 [place] # (Auto) 0.8 Eos # (Auto) 0.1 Baso # (Auto) 0.1 Abs Immat Gran (auto) 0.06 H Absolute Neuts (auto) 8.9 H Absolute Nucleated RBC 0.000 Nucleated RBC % (auto) 0.0 Anion Gap 14 Estim Creat Clear Calc 98.0 Estimated GFR > 60 Random Glucose 94 Calcium 8.3 L Assessment and Plan (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 hypertensive emergency with pre-syncope Better control Doppler US negative for Renal artery stenosis Continue Amlodipine to 10 mg Continue Enteresto bid 25 mg daily Spironolactone and 12.5 bid Carvedilol Hydralazine 25 mg tid on hold as BP runs normal, monitor monitor BP Acute Pulmonary edema 2/2 new systolic heart failure echo showing low EF of 35% cardiac diet cardiology consult, will need ischemic workup as an outpatient. Consider coronary CTA versus diagnostic catheterization. continue daily IV lasix follow I\O and BNP Ataxia, vertigo head CT, CT a head and neck negative for acute findings MRI showing central and extra-pontine Myelinolysis per Neurology evaluation Start Multivit, B12 and thiamine supplement meclizine and Diazepam TID Prednisone tapering dose for possible vestibular neuritis PT\OT rec STR Full code VTE prophylaxis: Lovenox Patient with a presyncopal episode urgency complicated by pulmonary edema pulmonary effusion and heart failure, requiring overnight stay pending better control of blood pressure and improvement in vertigo Quality Stroke Does the patient have a stroke diagnosis?: No VTE Prior VTE?: No VTE Risk Level:: Medical - moderate - high VTE Device Contraindication: Treatment Not Indicated VTE Drug Contraindication: N/A - Med Ordered
[2024-12-05] MEDS: Enoxaparin Sodium 40 MG/0.4 ML SYRINGE SUBCUT (22:04)
[2024-12-06] VITALS (9 sets, daily range): BP systolic 137–169; BP diastolic 65–99; PULSE 68–95; RESP 16–18; TEMP 36–36.7; O2SAT 96–98
[2024-12-06] MEDS: Acetaminophen 325 MG TABLET 650 MG PO (07:11)
[2024-12-06] MEDS: Multivitamin TABLET 1 TAB PO (07:11)
[2024-12-06] MEDS: 0.9 % Sodium Chloride Flush 3 ML SYRINGE IVFLUSH ×2 (07:11→15:55)
[2024-12-06] MEDS: amLODIPine Besylate 10 MG TABLET PO (07:12)
[2024-12-06] MEDS: Cyanocobalamin (Vitamin B-12) 500 MCG TABLET PO (07:12)
[2024-12-06] MEDS: predniSONE 10 MG TABLET 50 MG PO (07:12)
[2024-12-06] MEDS: Thiamine HCL 100 MG TABLET PO (07:12)
[2024-12-06] MEDS: carvediloL 12.5 MG TABLET PO ×2 (07:12→20:58)
[2024-12-06] MEDS: Spironolactone 25 MG TABLET PO (07:12)
[2024-12-06] MEDS: Sacubitril/Valsartan 49/51 1 TAB TABLET PO ×2 (07:12→20:58)
[2024-12-06] MEDS: diazePAM 2 MG TABLET PO (07:13)
[2024-12-06] MEDS: Folic Acid 1 MG TABLET PO (07:13)
[2024-12-06] MEDS: Furosemide 20 MG/2 ML VIAL IVPUSH (07:13)
[2024-12-06] MEDS: Meclizine HCl 25 MG TABLET PO (07:13)
--- NOTE | 2024-12-06 13:37 | HO.PM.IMPN ---
Subjective Subjective Date of Service: 12/06/24 Interval History: seen and evaluated this morning reporting improvement in dizziness and Vertigo BP better controlled working with PT and ambulating no other events Review of Systems Review of Systems: Yes all other systems are reviewed and are negative Physical Exam Vital Signs: Vital Signs: Last Vital Signs Temp 98.1 F 12/06/24 10:55 Pulse 87 12/06/24 10:55 Resp 18 12/06/24 10:55 BP 137/65 12/06/24 10:55 Pulse Ox 98 12/06/24 10:55 O2 Del Method Room Air 12/06/24 10:55 BMI result Body Mass Index 28.1 Const: Other: Constitutional : interactive, not in distress Cardiovascular : no JVP, trace bilateral lower extremity edema Respiratory : bilateral chest movement, not in resp distress, basal fine crackles Gastrointestinal: soft, lax, Non tender Skin : Warm, Dry Neurological : Alert & oriented , No focal deficit , mild right sided facial parasthesia Objective Data Active Medications Acetaminophen (Acetaminophen 325 Mg Tablet) 650 mg PO Q6H PRN PRN Reason: Pain, Mild 1-3,fever,headache Last Admin: 12/06/24 07:11 Dose: 650 mg Documented By: OLGA Acetaminophen/Butalbital/Caffeine (Butalb/Acetamin/Caff 50/325/40 Tablet) 1 tab PO Q4H PRN PRN Reason: Headache Last Admin: 12/03/24 19:59 Dose: 1 tab Documented By: YESENIA Amlodipine Besylate (Amlodipine Besylate 10 Mg Tablet) 10 mg PO DAILY [facility]; Protocol Last Admin: 12/06/24 07:12 Dose: 10 mg Documented By: OLGA Calcium Carbonate (Calcium Carbonate 750 Mg Tab.Chew) 750 mg PO Q4H PRN PRN Reason: Heartburn Carvedilol (Carvedilol 12.5 Mg Tablet) 12.5 mg PO BID [facility]; Protocol Last Admin: 12/06/24 07:12 Dose: 12.5 mg Documented By: OLGA Cyanocobalamin (Cyanocobalamin (Vitamin B-12) 500 Mcg Tablet) 500 mcg PO DAILY [facility] Last Admin: 12/06/24 07:12 Dose: 500 mcg Documented By: OLGA Diazepam (Diazepam 2 Mg Tablet) 2 mg PO TID [facility] Last Admin: 12/06/24 07:13 Dose: 2 mg Documented By: OLGA Enoxaparin Sodium (Enoxaparin Sodium 40 Mg/0.4 Ml Syringe) 40 mg SUBCUT Q24H [facility] Last Admin: 12/05/24 22:04 Dose: 40 mg Documented By: ORTEGA Folic Acid (Folic Acid 1 Mg Tablet) 1 mg PO DAILY [facility] Last Admin: 12/06/24 07:13 Dose: 1 mg Documented By: OLGA Furosemide (Furosemide 20 Mg/2 Ml Vial) 20 mg IVPUSH DAILY [facility]; Protocol Last Admin: 12/06/24 07:13 Dose: 20 mg Documented By: OLGA Hydralazine HCl (Hydralazine Hcl 25 Mg Tablet) 25 mg PO TID [facility]; Protocol Last Admin: 12/05/24 15:19 Dose: 25 mg Documented By: OLGA Magnesium Hydroxide (Milk Of Magnesia 30 Ml Oral.Susp) 30 ml PO DAILY PRN PRN Reason: Constipation Meclizine HCl (Meclizine Hcl 25 Mg Tablet) 25 mg PO Q8H [facility] Last Admin: 12/06/24 07:13 Dose: 25 mg Documented By: OLGA Melatonin (Melatonin 3 Mg Tablet) 6 mg PO BEDTIME PRN PRN Reason: Insomnia Multivitamins/Vitamin C (Multivitamin Tablet) 1 tab PO DAILY [facility] Last Admin: 12/06/24 07:11 Dose: 1 tab Documented By: OLGA Ondansetron HCl (Ondansetron Hcl 4 Mg/2 Ml Vial) 4 mg IVPUSH Q8H PRN PRN Reason: Nausea and Vomiting Prednisone (Prednisone 10 Mg Tablet) 50 mg PO DAILY [facility] Last Admin: 12/06/24 07:12 Dose: 50 mg Documented By: OLGA Sacubitril/Valsartan (Sacubitril/Valsartan 49/51 1 Tab Tablet) 1 tab PO BID [facility]; Protocol Last Admin: 12/06/24 07:12 Dose: 1 tab Documented By: SAIING Sodium Chloride (0.9 % Sodium Chloride Flush 3 Ml Syringe) 3 ml IVFLUSH QSHIFT [facility] Last Admin: 12/06/24 07:11 Dose: 3 ml Documented By: OLGA Spironolactone (Spironolactone 25 Mg Tablet) 25 mg PO DAILY [facility]; Protocol Last Admin: 12/06/24 07:12 Dose: 25 mg Documented By: OLGA Thiamine HCl (Thiamine Hcl 100 Mg Tablet) 100 mg PO DAILY [facility] Last Admin: 12/06/24 07:12 Dose: 100 mg Documented By: OLGA Labs 12/05/24 06:30 12/05/24 06:30 Assessment and Plan (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 hypertensive emergency with pre-syncope Better control Doppler US negative for Renal artery stenosis Continue Amlodipine to 10 mg Continue Enteresto bid 25 mg daily Spironolactone and 12.5 bid Carvedilol Hydralazine 25 mg tid on hold as BP runs normal, monitor monitor BP Acute Pulmonary edema 2/2 new systolic heart failure echo showing low EF of 35% cardiac diet cardiology consult, will need ischemic workup as an outpatient. Consider coronary CTA versus diagnostic catheterization. continue daily IV lasix follow I\O and BNP Ataxia, vertigo head CT, CT a head and neck negative for acute findings MRI showing central and extra-pontine Myelinolysis per Neurology evaluation Start Multivit, B12 and thiamine supplement meclizine and Diazepam TID change to PRN for now Prednisone tapering dose for possible vestibular neuritis ; decrease to 40 mg daily PT\OT rec STR Full code VTE prophylaxis: Lovenox Patient with a presyncopal episode urgency complicated by pulmonary edema pulmonary effusion and heart failure, requiring overnight stay pending better control of blood pressure and improvement in vertigo Quality Stroke Does the patient have a stroke diagnosis?: No VTE Prior VTE?: No VTE Risk Level:: Medical - moderate - high VTE Device Contraindication: Treatment Not Indicated VTE Drug Contraindication: N/A - Med Ordered
[2024-12-06] MEDS: Enoxaparin Sodium 40 MG/0.4 ML SYRINGE SUBCUT (20:58)
[2024-12-07] VITALS (8 sets, daily range): BP systolic 124–173; BP diastolic 71–103; PULSE 77–93; RESP 14–20; TEMP 36.1–37.2; O2SAT 97–99
[2024-12-07] MEDS: 0.9 % Sodium Chloride Flush 3 ML SYRINGE IVFLUSH ×2 (00:19→08:15)
[2024-12-07] MEDS: Acetaminophen 325 MG TABLET 650 MG PO (08:13)
[2024-12-07] MEDS: Spironolactone 25 MG TABLET PO (08:14)
[2024-12-07] MEDS: predniSONE 20 MG TABLET 40 MG PO (08:14)
[2024-12-07] MEDS: Folic Acid 1 MG TABLET PO (08:14)
[2024-12-07] MEDS: Multivitamin TABLET 1 TAB PO (08:14)
[2024-12-07] MEDS: Furosemide 20 MG/2 ML VIAL IVPUSH (08:15)
[2024-12-07] MEDS: Sacubitril/Valsartan 49/51 1 TAB TABLET PO ×2 (08:15→21:11)
[2024-12-07] MEDS: Thiamine HCL 100 MG TABLET PO (08:15)
[2024-12-07] MEDS: carvediloL 12.5 MG TABLET PO ×2 (08:15→21:11)
[2024-12-07] MEDS: amLODIPine Besylate 10 MG TABLET PO (08:15)
[2024-12-07] MEDS: Cyanocobalamin (Vitamin B-12) 500 MCG TABLET PO (08:15)
--- NOTE | 2024-12-07 10:34 | MHC.CM.PN ---
Addendum entered by Nathaly Neri, RN 12/07/24 16:14: CM MET W/PT AND FAMILY AT BEDSIDE, PT'S SISTER REPORTS SHE CALLED [facility] AND PT HAS A STR BENEFIT AND ALSO CAN GO TO SPECIALISTS WITHOUT A REFERRAL FROM PRIMARY CARE. Original Note: EMR REVIEWED, [facility] IS ONLY ACUTE [facility] OFFERING A BED, CM HAS SENT [facility]PDATES AND REQUESTED THEY GO FOR AUTH HOSPITALIST REPORTS PT CAN BE MEDICALLY CLEARED FOR DC, CM WILL CONT TO FOLLOW DC NEEDS.
--- NOTE | 2024-12-07 13:10 | HO.PM.IMPN ---
Subjective Subjective Date of Service: 12/07/24 Interval History: seen and evaluated this morning improvement in dizziness and Vertigo BP better controlled ambulating using walker but still unsteady no other events Review of Systems Review of Systems: Yes all other systems are reviewed and are negative Physical Exam Vital Signs: Vital Signs: Last Vital Signs Temp 98.0 F 12/07/24 11:57 Pulse 80 12/07/24 11:57 Resp 18 12/07/24 11:57 BP 124/72 12/07/24 11:57 Pulse Ox 97 12/07/24 11:57 O2 Del Method Room Air 12/07/24 11:57 BMI result Body Mass Index 28.1 Const: Other: Constitutional : interactive, not in distress Cardiovascular : no JVP, trace bilateral lower extremity edema Respiratory : bilateral chest movement, not in resp distress, basal fine crackles Gastrointestinal: soft, lax, Non tender Skin : Warm, Dry Neurological : Alert & oriented , No focal deficit , mild right sided facial parasthesia Objective Data Active Medications Acetaminophen (Acetaminophen 325 Mg Tablet) 650 mg PO Q6H PRN PRN Reason: Pain, Mild 1-3,fever,headache Last Admin: 12/07/24 08:13 Dose: 650 mg Documented By: JULIA Acetaminophen/Butalbital/Caffeine (Butalb/Acetamin/Caff 50/325/40 Tablet) 1 tab PO Q4H PRN PRN Reason: Headache Last Admin: 12/03/24 19:59 Dose: 1 tab Documented By: YESENIA Amlodipine Besylate (Amlodipine Besylate 10 Mg Tablet) 10 mg PO DAILY [facility]; Protocol Last Admin: 12/07/24 08:15 Dose: 10 mg Documented By: JULIA Calcium Carbonate (Calcium Carbonate 750 Mg Tab.Chew) 750 mg PO Q4H PRN PRN Reason: Heartburn Carvedilol (Carvedilol 12.5 Mg Tablet) 12.5 mg PO BID [facility]; Protocol Last Admin: 12/07/24 08:15 Dose: 12.5 mg Documented By: JULIA Cyanocobalamin (Cyanocobalamin (Vitamin B-12) 500 Mcg Tablet) 500 mcg PO DAILY [facility] Last Admin: 12/07/24 08:15 Dose: 500 mcg Documented By: JULIA Diazepam (Diazepam 2 Mg Tablet) 2 mg PO TID PRN PRN Reason: dizziness Enoxaparin Sodium (Enoxaparin Sodium 40 Mg/0.4 Ml Syringe) 40 mg SUBCUT Q24H [facility] Last Admin: 12/06/24 20:58 Dose: 40 mg Documented By: RADHA Folic Acid (Folic Acid 1 Mg Tablet) 1 mg PO DAILY [facility] Last Admin: 12/07/24 08:14 Dose: 1 mg Documented By: JULIA Furosemide (Furosemide 20 Mg/2 Ml Vial) 20 mg IVPUSH DAILY [facility]; Protocol Last Admin: 12/07/24 08:15 Dose: 20 mg Documented By: JULIA Hydralazine HCl (Hydralazine Hcl 25 Mg Tablet) 25 mg PO TID [facility]; Protocol Last Admin: 12/05/24 15:19 Dose: 25 mg Documented By: OLGA Magnesium Hydroxide (Milk Of Magnesia 30 Ml Oral.Susp) 30 ml PO DAILY PRN PRN Reason: Constipation Meclizine HCl (Meclizine Hcl 25 Mg Tablet) 25 mg PO Q8H PRN PRN Reason: Vertigo Melatonin (Melatonin 3 Mg Tablet) 6 mg PO BEDTIME PRN PRN Reason: Insomnia Multivitamins/Vitamin C (Multivitamin Tablet) 1 tab PO DAILY [facility] Last Admin: 12/07/24 08:14 Dose: 1 tab Documented By: JULIA Ondansetron HCl (Ondansetron Hcl 4 Mg/2 Ml Vial) 4 mg IVPUSH Q8H PRN PRN Reason: Nausea and Vomiting Prednisone (Prednisone 20 Mg Tablet) 40 mg PO DAILY [facility] Last Admin: 12/07/24 08:14 Dose: 40 mg Documented By: JULIA Sacubitril/Valsartan (Sacubitril/Valsartan 49/51 1 Tab Tablet) 1 tab PO BID [facility]; Protocol Last Admin: 12/07/24 08:15 Dose: 1 tab Documented By: JULIA Sodium Chloride (0.9 % Sodium Chloride Flush 3 Ml Syringe) 3 ml IVFLUSH QSHIFT [facility] Last Admin: 12/07/24 08:15 Dose: 3 ml Documented By: JULIA Spironolactone (Spironolactone 25 Mg Tablet) 25 mg PO DAILY [facility]; Protocol Last Admin: 12/07/24 08:14 Dose: 25 mg Documented By: JULIA Thiamine HCl (Thiamine Hcl 100 Mg Tablet) 100 mg PO DAILY [facility] Last Admin: 12/07/24 08:15 Dose: 100 mg Documented By: JULIA Labs 12/05/24 06:30 12/05/24 06:30 Assessment and Plan (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 hypertensive emergency with pre-syncope Better control Doppler US negative for Renal artery stenosis Continue Amlodipine to 10 mg Continue Enteresto bid 25 mg daily Spironolactone and 12.5 bid Carvedilol Hydralazine 25 mg tid on hold as BP runs normal, monitor monitor BP Acute Pulmonary edema 2/2 new systolic heart failure echo showing low EF of 35% cardiac diet cardiology consult, will need ischemic workup as an outpatient. Consider coronary CTA versus diagnostic catheterization. continue daily IV lasix follow I\O and BNP Ataxia, vertigo head CT, CT a head and neck negative for acute findings MRI showing central and extra-pontine Myelinolysis per Neurology evaluation Start Multivit, B12 and thiamine supplement meclizine and Diazepam TID change to PRN for now Prednisone tapering dose for possible vestibular neuritis ; decrease to 40 mg daily PT\OT rec STR Full code VTE prophylaxis: Lovenox Patient with Hypertensive urgency complicated by pulmonary edema pulmonary effusion and heart failure, requiring overnight stay pending better control of blood pressure and improvement in vertigo Quality Stroke Does the patient have a stroke diagnosis?: No VTE Prior VTE?: No VTE Risk Level:: Medical - moderate - high VTE Device Contraindication: Treatment Not Indicated VTE Drug Contraindication: N/A - Med Ordered
[2024-12-07] MEDS: diazePAM 2 MG TABLET PO (13:18)
[2024-12-07] MEDS: Meclizine HCl 25 MG TABLET PO ×2 (13:19→21:11)
[2024-12-07] MEDS: Enoxaparin Sodium 40 MG/0.4 ML SYRINGE SUBCUT (21:10)
[2024-12-08 03:15] VITALS: BP 145/80; PULSE 70; RESP 20; TEMP 36.1; O2SAT 94
[2024-12-08 07:28] VITALS: BP 170/100; PULSE 82; RESP 16; TEMP 36.7; O2SAT 100
[2024-12-08] MEDS: Acetaminophen 325 MG TABLET 650 MG PO (07:56)
[2024-12-08] MEDS: carvediloL 12.5 MG TABLET PO ×2 (07:57→22:19)
[2024-12-08] MEDS: Thiamine HCL 100 MG TABLET PO (07:57)
[2024-12-08] MEDS: diazePAM 2 MG TABLET PO (07:57)
[2024-12-08] MEDS: Meclizine HCl 25 MG TABLET PO (07:57)
[2024-12-08] MEDS: Cyanocobalamin (Vitamin B-12) 500 MCG TABLET PO (07:58)
[2024-12-08] MEDS: Spironolactone 25 MG TABLET PO (07:58)
[2024-12-08] MEDS: amLODIPine Besylate 10 MG TABLET PO (07:58)
[2024-12-08] MEDS: Sacubitril/Valsartan 49/51 1 TAB TABLET PO ×2 (07:58→22:20)
[2024-12-08] MEDS: Folic Acid 1 MG TABLET PO (07:58)
[2024-12-08] MEDS: predniSONE 20 MG TABLET 40 MG PO (07:58)
[2024-12-08] MEDS: Multivitamin TABLET 1 TAB PO (07:58)
[2024-12-08] MEDS: Furosemide 20 MG/2 ML VIAL IVPUSH (07:59)
[2024-12-08] MEDS: 0.9 % Sodium Chloride Flush 3 ML SYRINGE IVFLUSH ×2 (07:59→22:22)
[2024-12-08 09:25] VITALS: BP 122/78
[2024-12-08 11:31] VITALS: BP 114/70; PULSE 91; RESP 18; TEMP 36.7; O2SAT 98
--- NOTE | 2024-12-08 11:44 | P.PNIM_ITS ---
Subjective Subjective Date of Service: 12/08/24 Interval History: seen and evaluated this morning improvement in dizziness and Vertigo BP better controlled ambulating using walker but still unsteady no other events Physical Exam 2 Vital Signs: Vital Signs: Last Vital Signs Temp 98.0 F 12/08/24 11:31 Pulse 91 12/08/24 11:31 Resp 18 12/08/24 11:31 BP 114/70 12/08/24 11:31 Pulse Ox 98 12/08/24 11:31 O2 Del Method Room Air 12/08/24 11:31 BMI result Body Mass Index 28.1 Const: Other: Constitutional : interactive, not in distress Cardiovascular : no JVP, trace bilateral lower extremity edema Respiratory : bilateral chest movement, not in resp distress, basal fine crackles Gastrointestinal: soft, lax, Non tender Skin : Warm, Dry Neurological : Alert & oriented , No focal deficit , mild right sided facial parasthesia Objective Data Active Medications Acetaminophen (Acetaminophen 325 Mg Tablet) 650 mg PO Q6H PRN PRN Reason: Pain, Mild 1-3,fever,headache Last Admin: 12/08/24 07:56 Dose: 650 mg Documented By: PARAS Acetaminophen/Butalbital/Caffeine (Butalb/Acetamin/Caff 50/325/40 Tablet) 1 tab PO Q4H PRN PRN Reason: Headache Last Admin: 12/03/24 19:59 Dose: 1 tab Documented By: YESENIA Amlodipine Besylate (Amlodipine Besylate 10 Mg Tablet) 10 mg PO DAILY [facility]; Protocol Last Admin: 12/08/24 07:58 Dose: 10 mg Documented By: PARAS Calcium Carbonate (Calcium Carbonate 750 Mg Tab.Chew) 750 mg PO Q4H PRN PRN Reason: Heartburn Carvedilol (Carvedilol 12.5 Mg Tablet) 12.5 mg PO BID [facility]; Protocol Last Admin: 12/08/24 07:57 Dose: 12.5 mg Documented By: PARAS Cyanocobalamin (Cyanocobalamin (Vitamin B-12) 500 Mcg Tablet) 500 mcg PO DAILY [facility] Last Admin: 12/08/24 07:58 Dose: 500 mcg Documented By: PARSA Diazepam (Diazepam 2 Mg Tablet) 2 mg PO TID PRN PRN Reason: dizziness Last Admin: 12/08/24 07:57 Dose: 2 mg Documented By: PARAS Enoxaparin Sodium (Enoxaparin Sodium 40 Mg/0.4 Ml Syringe) 40 mg SUBCUT Q24H [facility] Last Admin: 12/07/24 21:10 Dose: 40 mg Documented By: RUSTY Folic Acid (Folic Acid 1 Mg Tablet) 1 mg PO DAILY [facility] Last Admin: 12/08/24 07:58 Dose: 1 mg Documented By: PARAS Furosemide (Furosemide 20 Mg/2 Ml Vial) 20 mg IVPUSH DAILY [facility]; Protocol Last Admin: 12/08/24 07:59 Dose: 20 mg Documented By: PARAS Hydralazine HCl (Hydralazine Hcl 25 Mg Tablet) 25 mg PO TID [facility]; Protocol Last Admin: 12/05/24 15:19 Dose: 25 mg Documented By: OLGA Magnesium Hydroxide (Milk Of Magnesia 30 Ml Oral.Susp) 30 ml PO DAILY PRN PRN Reason: Constipation Meclizine HCl (Meclizine Hcl 25 Mg Tablet) 25 mg PO Q8H PRN PRN Reason: Vertigo Last Admin: 12/08/24 07:57 Dose: 25 mg Documented By: PARAS Melatonin (Melatonin 3 Mg Tablet) 6 mg PO BEDTIME PRN PRN Reason: Insomnia Multivitamins/Vitamin C (Multivitamin Tablet) 1 tab PO DAILY [facility] Last Admin: 12/08/24 07:58 Dose: 1 tab Documented By: PARAS Ondansetron HCl (Ondansetron Hcl 4 Mg/2 Ml Vial) 4 mg IVPUSH Q8H PRN PRN Reason: Nausea and Vomiting Prednisone (Prednisone 20 Mg Tablet) 40 mg PO DAILY [facility] Last Admin: 12/08/24 07:58 Dose: 40 mg Documented By: PARAS Sacubitril/Valsartan (Sacubitril/Valsartan 49/51 1 Tab Tablet) 1 tab PO BID [facility]; Protocol Last Admin: 12/08/24 07:58 Dose: 1 tab Documented By: PARAS Sodium Chloride (0.9 % Sodium Chloride Flush 3 Ml Syringe) 3 ml IVFLUSH QSHIFT [facility] Last Admin: 12/08/24 07:59 Dose: 3 ml Documented By: PARAS Spironolactone (Spironolactone 25 Mg Tablet) 25 mg PO DAILY [facility]; Protocol Last Admin: 12/08/24 07:58 Dose: 25 mg Documented By: PARAS Thiamine HCl (Thiamine Hcl 100 Mg Tablet) 100 mg PO DAILY [facility] Last Admin: 12/08/24 07:57 Dose: 100 mg Documented By: PARAS Labs 12/05/24 06:30 12/05/24 06:30 Assessment and Plan (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 Hypertensive emergency with pre-syncope Better control Doppler US negative for Renal artery stenosis Continue Amlodipine to 10 mg Continue Enteresto bid 25 mg daily Spironolactone and 12.5 bid Carvedilol Hydralazine 25 mg tid on hold as BP runs normal, monitor monitor BP Acute Pulmonary edema 2/2 new systolic heart failure echo showing low EF of 35% cardiac diet cardiology consult, will need ischemic workup as an outpatient. Consider coronary CTA versus diagnostic catheterization. continue daily IV lasix follow I\O and BNP Ataxia, vertigo head CT, CT a head and neck negative for acute findings MRI showing central and extra-pontine Myelinolysis per Neurology evaluation Start Multivit, B12 and thiamine supplement meclizine and Diazepam TID change to PRN for now Prednisone tapering dose for possible vestibular neuritis ; decrease to 40 mg daily PT\OT rec STR Full code VTE prophylaxis: Lovenox Patient with Hypertensive urgency complicated by pulmonary edema pulmonary effusion and heart failure, requiring overnight stay pending better control of blood pressure and improvement in vertigo Quality Stroke Does the patient have a stroke diagnosis?: No VTE Prior VTE?: No VTE Risk Level:: Medical - moderate - high VTE Device Contraindication: Treatment Not Indicated VTE Drug Contraindication: N/A - Med Ordered
--- NOTE | 2024-12-08 15:14 | MHC.CM.PN ---
[facility] bed offers received, this CM met with pt to review options, she accepted bed offer at [facility], insurance auth now pending. New HCP completed with pt, now on file.
[2024-12-08 15:52] VITALS: BP 140/90; PULSE 90; RESP 20; TEMP 36.6; O2SAT 95
[2024-12-08 19:30] VITALS: BP 136/94; PULSE 98; RESP 18; TEMP 36.6; O2SAT 97
[2024-12-08] MEDS: Enoxaparin Sodium 40 MG/0.4 ML SYRINGE SUBCUT (22:19)
[2024-12-08] MEDS: Ibuprofen 400 MG TABLET PO (22:20)
[2024-12-09] VITALS: BP 159/97; PULSE 89; RESP 20; TEMP 36.3; O2SAT 96
[2024-12-09 02:56] VITALS: BP 139/86; PULSE 80; RESP 20; TEMP 36.3; O2SAT 95
[2024-12-09 07:35] VITALS: BP 158/105; PULSE 80; RESP 18; TEMP 36.1; O2SAT 99
[2024-12-09] MEDS: Thiamine HCL 100 MG TABLET PO (08:12)
[2024-12-09] MEDS: Furosemide 20 MG TABLET PO (08:12)
[2024-12-09] MEDS: Meclizine HCl 25 MG TABLET PO (08:12)
[2024-12-09] MEDS: Multivitamin TABLET 1 TAB PO (08:12)
[2024-12-09] MEDS: Cyanocobalamin (Vitamin B-12) 500 MCG TABLET PO (08:12)
[2024-12-09] MEDS: amLODIPine Besylate 10 MG TABLET PO (08:12)
[2024-12-09] MEDS: Sacubitril/Valsartan 49/51 1 TAB TABLET PO (08:12)
[2024-12-09] MEDS: Acetaminophen 325 MG TABLET 650 MG PO ×2 (08:13→15:43)
[2024-12-09] MEDS: Folic Acid 1 MG TABLET PO (08:13)
[2024-12-09] MEDS: diazePAM 2 MG TABLET PO (08:13)
[2024-12-09] MEDS: Spironolactone 25 MG TABLET PO (08:13)
[2024-12-09] MEDS: carvediloL 12.5 MG TABLET PO (08:13)
[2024-12-09] MEDS: predniSONE 20 MG TABLET 40 MG PO (08:14)
[2024-12-09] MEDS: 0.9 % Sodium Chloride Flush 3 ML SYRINGE IVFLUSH (08:14)
--- NOTE | 2024-12-09 08:55 | MHC.CM.PN ---
PT MEDICALLY CLEARED FOR DC TO STR AT [facility] PENDING INSURANCE LAURA DOWNEY FOR BLS TRANSPORT
[2024-12-09 10:29] VITALS: BP 131/80; PULSE 85; RESP 18; TEMP 36.2; O2SAT 97
[2024-12-09 12:00] VITALS: BP 142/88; PULSE 89; RESP 18; TEMP 36.6; O2SAT 98
--- NOTE | 2024-12-09 13:37 | MHC.CM.PN ---
pt booked for [address] [facility] brother notified of dc
--- NOTE | 2024-12-09 14:00 | PM.DS ---
DS: Providers Provider Date of Service: 12/09/24 Date of admission: 12/01/24 20:12 Date of discharge: 12/09/24 Primary care physician: Trini Physician Consults: 12/02/24 13:08 Consult to Cardiology Routine Consulting Provider: [facility] Reason for consultation: acute new heart failure with low EF. 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 She also reported a right-sided headache yesterday. She has chronic hypertension and reports that she has not been taking her medication as she moved a few months ago and has yet to find a primary care provider to prescribe this for her. On arrival she was found to be in hypertensive urgency with a blood pressure of 200/104. CT head and CTA head and neck both negative aside from bilateral pleural effusions, moderate to large in volume bilaterally. MRI brain negative. Chest x-ray with possible mild cardiac enlargement. Venous duplex negative for DVT. Troponin slightly elevated at 20.9, 18.4 and repeat. EKG with NSR. COVID/flu/RSV negative. She received her regular lisinopril dose of 20 mg as well as labetalol 5 mg, labetalol 10 mg, labetalol 20 mg furosemide 40 mg amlodipine 5 mg and nitro paste. Her BP has normalized and she will be admitted for further cardiac workup and monitoring. Hospital course The patient was treated for the following: # Hypertensive emergency with pre-syncope on admission. Doppler US negative for Renal artery stenosis. She received multiple doses of IV LAbetalol and Hydralazine to lower her BP then started on multiple PO regimen of Amlodipine to 10 mg , Enteresto bid, 25 mg daily Spironolactone and 12.5 bid Carvedilol. Hydralazine was used then stopped as BP started to run normal to low on occasions. To be followed as outpatient. # Acute Pulmonary edema secondary to new systolic heart failure as Echo showing low EF of 35%. cardiology consulted and recommending ischemic workup as an outpatient. Consider coronary CTA versus diagnostic catheterization. She was treated with daily IV lasix with good response as she was able to ambulate on room air with no reported dyspnea or shortness of breath. To be discharged on LAsix po. # Ataxia, vertigo on presentation. head CT, CT a head and neck negative for acute findings. MRI showing central and extra-pontine Myelinolysis per Neurology evaluation who recommended Starting Multivit, B12 and thiamine supplement. She was placed on meclizine and Diazepam TID change to PRN with good response. Prednisone tapering dose for possible vestibular neuritis ; decrease to 30 mg daily on discharge with short tapering dose. Evaluated by PT\OT rec STR. Discharge plan Start Carvedilol, Lasix, Spironolactone and Entresto for heart failure and blood pressure control Start Amlodipine 10 mg for blood pressure control Low sodium diet , monitor weight daily and keep recored of 1 week of blood pressure readings Take MultiVitamin, Thaimin, Folic acid and B-complex vitamins Meclizine and Diazepam as needed for vertigo Prednisone short tapering dose of vertigo as well To do physical therapy as tolerated Follow up with cardiology and neurology as outpatient Time Attestation Discharge Coordination Time (in mins): 47 Quality: Safe Use of Opioids Does Pt have an Active Cancer Diagnosis on the Problem List?: No Quality: Stroke Does the patient have a stroke diagnosis?: No Physical Exam Vital Signs: Vital Signs: Last Vital Signs Temp 97.8 F 12/09/24 12:00 Pulse 89 12/09/24 12:00 Resp 18 12/09/24 12:00 BP 142/88 H 12/09/24 12:00 Pulse Ox 98 12/09/24 12:00 O2 Del Method Room Air 12/09/24 12:00 BMI result Body Mass Index 28.1 Const: Other: Constitutional : interactive, not in distress Cardiovascular : no JVP, trace bilateral lower extremity edema Respiratory : bilateral chest movement, not in resp distress, basal fine crackles Gastrointestinal: soft, lax, Non tender Skin : Warm, Dry Neurological : Alert & oriented , No focal deficit , mild right sided facial parasthesia DS: Data Imaging MRI - head: Radiologist's impression: ITS Impressions Chest X-Ray 12/01/24 14:24 IMPRESSION: 1. No active pulmonary disease. 2. Possible mild cardiac enlargement. Electronically signed by: Angel Rea MD 12/01/2024 02:53 PM EST RP Head CT 12/01/24 14:44 IMPRESSION: No acute intracranial hemorrhage. Acute stroke/nonhemorrhagic ischemia cannot be excluded. If patient's symptoms persist recommend non-IV contrast MRI brain. This critical result was discussed with physician event marketing assistant, Kerry Gonzalez at 1501 hours on December 01, 2024. It was ascertained that the content and urgency of the report was understood at the time of direct communication. Electronically signed by: Frde Potter MD 12/01/2024 03:04 PM EST RP Head/Neck CTA 12/01/24 14:52 IMPRESSION: No high degree stenosis or dissection. No main cerebral artery occlusion or embolus. No gross cerebral aneurysm. Pulmonary edema and bilateral pleural effusions, moderate to large volume. Uncertain etiology. This critical test result is communicated to: Electronically signed by: Fred Potter MD 12/01/2024 03:37 PM EST RP Venous Duplex 12/01/24 15:33 IMPRESSION: No evidence of deep venous thrombosis involving the left lower extremity. Electronically signed by: Angel Rea MD 12/01/2024 04:09 PM EST RP Renal Ultrasound 12/03/24 13:45 IMPRESSION: 1. No evidence of renal artery stenosis or abnormal waveforms bilaterally on color/spectral Doppler examination (based on peak systolic velocities and resistive indices). 2. Renal parenchyma is normal. Electronically signed by: Angel Rea MD 12/03/2024 02:40 PM EST RP Discharge Plan Discharge Anticipated Discharge Date/Time: 12/09/24 13:43 Patient Disposition: [facility] Discharge Diagnosis: Central Pontine Myelinolysis Vertigo; Referrals: [facility] [Outside] - 1 Day (SHORT TERM REHAB) Lance Lamas CNP [Nurse Practitioner] - 12/28/24 1:15 pm (NEW PT APPOINTMENT ) Discharge Medications: New carvedilol 12.5 mg Tablet 12.5 mg PO BID Qty: 180 0RF Protocol: Hold for SBP/HR < HOLD for SBP < : 90 HOLD for HR < : 60 amlodipine 10 mg Tablet 10 mg PO DAILY Qty: 90 0RF Protocol: Hold for SBP< HOLD for SBP < : 90 sacubitril-valsartan [Entresto] 49-51 mg Tablet 1 tab PO BID Qty: 180 0RF Protocol: Hold for SBP< HOLD for SBP < : 90 spironolactone 25 mg Tablet 25 mg PO DAILY Qty: 90 0RF Protocol: Hold for SBP< HOLD for SBP < : 90 meclizine 25 mg Tablet 25 mg PO Q8H PRN (Reason: Vertigo) Qty: 30 0RF diazepam 2 mg Tablet 2 mg PO TID PRN (Reason: dizziness) Qty: 20 0RF furosemide 20 mg Tablet 20 mg PO DAILY Qty: 90 0RF Protocol: Hold for SBP< HOLD for SBP < : 90 cyanocobalamin (vitamin B-12) 500 mcg Tablet 500 mcg PO DAILY Qty: 90 0RF folic acid 1 mg Tablet 1 mg PO DAILY Qty: 90 0RF multivitamin [Daily-Toya] Tablet 1 tab PO DAILY Qty: 90 0RF thiamine mononitrate (vit B1) 100 mg Tablet 100 mg PO DAILY Qty: 90 0RF prednisone 10 mg tablet See Taper PO DIRECTED Qty: 12 0RF Taper: Prednisone 30 mg daily for 2 Days and 0 Hour 20 mg daily for 2 Days and 0 Hour 10 mg daily for 2 Days and 0 Hour Rx Instructions: see taper instructions Discharge Orders: Discharge Order (Routine); Ordered 12/09/24 Ordered By: Kelly Aguirre Diet: Low salt diet Activity on Discharge: As tolerated Stand Alone Forms: Patient Portal Discharge page Print Language: [place] Citizen Care Plan Goals: Start Carvedilol, Lasix, Spironolactone and Entresto for heart failure and blood pressure control Start Amlodipine 10 mg for blood pressure control Low sodium diet , monitor weight daily and keep recored of 1 week of blood pressure readings Take MultiVitamin, Thaimin, Folic acid and B-complex vitamins Meclizine and Diazepam as needed for vertigo Prednisone short tapering dose of vertigo as well To do physical therapy as tolerated Follow up with cardiology and neurology as outpatient Health Concerns: 1- HEart failure 2- 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
[2024-12-09 15:45] VITALS: BP 134/81; PULSE 94; RESP 16; TEMP 36.7; O2SAT 96
== END 2024-12-09 17:19 | disposition skilled nursing facility (03) | DRG 43 ==
LOC: HO.ED 18:34 → HO.EDOVER 20:25 → HO.IMC 12-03 08:01 → HO.S3 12-09 09:17
PROVIDERS: Physician Assistant; Admitting Provider Student in an Organized Health Care Education/Training Program; Emergency Provider Emergency Medicine Emergency Medical Services; Visit Provider Student in an Organized Health Care Education/Training Program
DX: G37.2 Central pontine myelinolysis (principal); I50.21 Acute systolic (congestive) heart failure; I16.1 Hypertensive emergency; I11.0 Hypertensive heart disease with heart failure; Z20.822 Contact with and (suspected) exposure to COVID-19; Z79.899 Other long term (current) drug therapy
CPT/HCPCS: 0241U; 36415; 70450; 70496; 70498; 70551; 71045; 80048; 80076; 80307; 81003; 82607; 82746; 83735; 83880; 84443; 84484; 84702; 85025; 85610; 87389; 93005; 93306; 93971; 93975; 97116; 97161; 97166; 97530; 99285; J0360; J1650; J1920; J1940; J2405; Q9967

== ENCOUNTER → 2024-12-01 14:24 | Outpatient (BNV) | payer SELFPAY | PROVIDERS: Visit Provider Radiology Diagnostic Radiology | DX: I63.9 Cerebral infarction, unspecified (principal); J81.0 Acute pulmonary edema; J90 Pleural effusion, not elsewhere classified; I51.7 Cardiomegaly; R22.42 Localized swelling, mass and lump, left lower limb; R27.0 Ataxia, unspecified; I10 Essential (primary) hypertension | CPT/HCPCS: 70450; 70496; 70498; 70551; 71045; 93971 ==

== ENCOUNTER → 2024-12-01 14:24 | Outpatient (BNV) | payer BC, SELFPAY | PROVIDERS: Admitting Provider Student in an Organized Health Care Education/Training Program; Emergency Provider Emergency Medicine Emergency Medical Services; Visit Provider Internal Medicine | DX: I51.7 Cardiomegaly (principal) | CPT/HCPCS: 93010 ==

== ENCOUNTER 2024-12-01 20:12 | Outpatient (BNV) | payer BC, SELFPAY | END 2024-12-03 13:45 | PROVIDERS: Admitting Provider Student in an Organized Health Care Education/Training Program; Emergency Provider Emergency Medicine Emergency Medical Services; Visit Provider Radiology Diagnostic Radiology | DX: I10 Essential (primary) hypertension (principal) | CPT/HCPCS: 93975 ==

== ENCOUNTER 2024-12-01 20:12 | Outpatient (BNV) | payer BC, SELFPAY | END 2024-12-02 07:00 | PROVIDERS: Admitting Provider Student in an Organized Health Care Education/Training Program; Emergency Provider Emergency Medicine Emergency Medical Services; Visit Provider Internal Medicine | DX: I50.20 Unspecified systolic (congestive) heart failure (principal) | CPT/HCPCS: 93306 ==

== ENCOUNTER → 2024-12-01 20:12 | Outpatient (BNV) | payer BC, SELFPAY | PROVIDERS: Admitting Provider Student in an Organized Health Care Education/Training Program; Emergency Provider Emergency Medicine Emergency Medical Services; Visit Provider Psychiatry & Neurology Neurology | DX: G37.89 Other specified demyelinating diseases of central nervous system (principal); G37.2 Central pontine myelinolysis | CPT/HCPCS: 99222 ==

== ENCOUNTER → 2024-12-01 20:12 | Outpatient (BNV) | payer BC, SELFPAY | PROVIDERS: Admitting Provider Student in an Organized Health Care Education/Training Program; Emergency Provider Emergency Medicine Emergency Medical Services; Visit Provider Internal Medicine | DX: I16.1 Hypertensive emergency (principal); I50.43 Acute on chronic combined systolic (congestive) and diastolic (congestive) heart failure | CPT/HCPCS: 99223 ==

== ENCOUNTER → 2024-12-01 20:12 | Outpatient (BNV) | payer BC, SELFPAY | PROVIDERS: Admitting Provider Student in an Organized Health Care Education/Training Program; Emergency Provider Emergency Medicine Emergency Medical Services; Visit Provider Physician Assistant | DX: G37.89 Other specified demyelinating diseases of central nervous system (principal); G37.2 Central pontine myelinolysis; I50.43 Acute on chronic combined systolic (congestive) and diastolic (congestive) heart failure; I16.1 Hypertensive emergency | CPT/HCPCS: 99223; 99232; 99233 ==

== ENCOUNTER 2024-12-28 13:03 | Outpatient (AMB) | payer BC, SELFPAY ==
--- NOTE | 2024-12-28 13:06 | MHC.PC.OV ---
Vital Signs 12/28/24 13:16 Height 5 ft 8 in Weight 189 lb BMI 28.7 BP 115/71 Blood Pressure Location Rt brachial Position Sitting Respiration 16 Pulse 85 Pulse Source Pulse Oximeter Temp 97.6 F Temp Source Oral Pulse Oximetry (%) 100 Oxygen Delivery Method Room Air Intake Visit Reasons: est care Intake Note: patient her to [facility] Property Site Manager Required: No Is last menstrual period known: Yes Last menstrual period: 12/28/24 Post menopausal: No Patient : No Allergies No Known Allergies Allergy (Verified 12/28/24 13:45) Medication List - Last Reviewed 12/29/24 by Mariah Vega MA amlodipine 10 mg See Protocol PO DAILY carvedilol 12.5 mg See Protocol PO BID citalopram 10 mg PO DAILY 30 days cyanocobalamin (vitamin B-12) 500 mcg PO DAILY diazepam 2 mg PO TID PRN folic acid 1 mg PO DAILY furosemide 20 mg See Protocol PO DAILY meclizine 25 mg PO Q8H PRN multivitamin (Daily-Toya tablet) 1 tab PO DAILY sacubitril-valsartan 49-51 mg (Entresto) 1 tab See Protocol PO BID spironolactone 25 mg See Protocol PO DAILY thiamine mononitrate (vit B1) 100 mg PO DAILY Tobacco use date assessed: 12/28/24 Dental Screening Dental Screen Date: 12/28/24 Did you have a dental visit in the last 12 months?: No Did you have a dental problem in the last 6 months where you did not have access to dental care?: No Was dental information given to patient?: Yes HPI HPI Comments History of Present Illness Details 44-year-old female, accompanied by her mother, presents to [facility]. She admits to taking her medications as prescribed without adverse reactions. She presented to [facility] on 12/01/2024 with complaints of ataxia, lower extremity edema, presyncope, lightheadedness, nausea, vomiting, and headache. 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 She was discharged to [facility] on 12/09/2024 where she was until 12/18/2024. Prior PCP? - Dr. Morin, [place], [place] Last office visit/CPE/labs - Almost 2 years ago Acute issue(s) - Hypertension: On amlodipine 10 mg daily, carvedilol 12.5 mg daily, furosemide 20 mg daily, sacubitril-valsartan 49-51 mg twice daily, and spironolactone 25 mg daily - Vertigo: On meclizine 25 mg Q 8 H p.r.n. and diazepam 2 mg t.i.d. p.r.n. - She notes continued ataxia, numbness, and cold and diminished sensation to the left since of her body (from her head down to toes). Her symptoms have have been ongoing since her recent hospitalization. She attributes her ataxia to left lower extremity numbness. She wishes to continue physical therapy but only home PT because she is unable to drive due to numbness and ataxia. She He is not followed neurology. - Anxiety and depression: She not been on psychotropic medication for over a year. She was on Citalopram. Since she came of the medication, she has been crying frequently due to stressors and sadness. She wants to restart the medication. No history of psychiatric hospitalization. Denies h/o psychotherapy and is not interested at the times. She has never been followed by a psychiatrist. Myopia: wears contacts. Past Medical History - Hypertension, vertigo, CHF, depression, central potine and extra-pontine myelinolysis Surgical History - None Family History - Dad: Hypertension, CAD, clotting disorder, Buerger's disease, alcohol abuse, substance abuse - MGM: Hyperlipidemia, diabetes, cancer Social History - Nonsmoker. Vapes nicotine twice daily for about 14 months. Drinks 2 glasses of mixed drinks twice weekly. Denies recreational drug use - Has been making healthy dietary choices. Walks routinely. She notes difficulty falling asleep or maintaining sleep, she sleeps an average of 6 hours, she snores, according to her mom. She has never been diagnosed of sleep apnea or had a sleep study. Health maintenance - Last eye exam was 2 months ago with [facility] : normal - Last dental visit was over 2 years ago; encouraged to schedule an appointment with his dentist for routine dental care - Last Tdap was 2-3 years ago. She will obtain her immunization record for her PCP - She notes that she is up-to-date on the flu vaccine - Last pap smear test was 3 years ago: Normal. Referred to [facility] recruitment specialist for a pap smear test - She has never had a mammogram. Mammogram ordered Specialists - [facility] cardiology - has an appointment to establish care with them next [facility] Medical History (Updated 12/29/24 @ 14:07 by Lance Lamas CNP) Extra-pontine myelinolysis Central pontine myelinolysis Hypertension Ataxia Psoriasis Depression Anxiety Frequent headaches Scoliosis Arthritis Stroke (cerebrum) Systolic heart failure Family History (Updated 12/28/24 @ 13:24 by Mariah Vega MA) Father CAD (coronary artery disease) Buerger disease Alcohol abuse Substance abuse High blood pressure Clotting disorder Maternal Grandmother High cholesterol Diabetes Cancer Social History Household Members: Family Housing: House Do you presently have visiting nurse or other home services: No Unable to assess alcohol history related to: Unknown Patient Tobacco Use Status: Former Tobacco user Cigarettes Per Day: 6 e-Cigarette/Vaping Use: Currently Using Second Hand Smoke Exposure: No service: No Current occupational status: employed Current occupation: [employer] Cognitive needs: No Hearing needs: No Vision needs: Yes (wears contacts) Female Reproductive History Menstrual Date of last menstrual period: 12/28/24 Questionnaire PHQ-9 Over the last 2 weeks, how often have you been bothered by any of the following problems? 1. Little interest or pleasure in doing things: more than half the days 2. Feeling down, depressed, or hopeless: several days 3. Trouble falling or staying asleep, or sleeping too much: more than half the days 4. Feeling tired or having little energy: several days 5. Poor appetite or overeating: not at all 6. Feeling bad about yourself - or that you are a failure or have let yourself or your family down: several days 7. Trouble concentrating on things, such as reading the newspaper or watching television: more than half the days 8. Moving or speaking so slowly that other people could have noticed. Or the opposite - being so fidgety or restless that you have been moving around a lot more than usual: several days 9. Thoughts that you would be better off or of hurting yourself in some way: not at all Total score: 10 Depression Screening Interpretation: Positive Depression Screening Follow-up: Existing condition Depression Screening Done: Yes 95181 - PHQ-9 Billing: Yes Source: Developed by Drs. Fidel Franco, Maryjo Smith, Chas Gomes and colleagues, with an educational leyda from [employer]. Thrive Questionnaire Date Thrive assessed: 12/28/24 I am a: Patient What is your living situation today?: I have a steady place to live Within the past 12 months, did the food you bought not last and you didn't have the money to get more?: Never true Within the past 12 months, did you worry whether your food would run out before you got money to buy more?: Never true Do you have trouble paying for medicines?: No Do you have trouble getting transportation to medical appointments?: No Do you have trouble paying your heating and electricity bill?: No Do you have trouble taking care of your child, family member or friend?: No Do you have trouble with day-to-day activities such as bathing, preparing meals, shopping, managing finances, etc.?: No Are you currently unemployed and looking for a job?: I choose not to answer this question Are you interested in more education?: No Please select the resources that you would like help with: None Currently or been in a relationship where the following occur: No concerns reported THRIVE Score: 0 AUDIT C Alcohol Use Questionnaire (AUDIT-C) 1. How often do you have a drink containing alcohol?: 2-4 times a month 2. How many drinks containing alcohol do you have on a typical day when you are drinking?: 1 or 2 3. How often do you have six or more drinks on one occasion?: Less than monthly Total Score: 3 Score Reviewed/Action Taken: Yes ORLANDO-7 AMB Questionnaire ORLANDO-7 Date ORLANDO - 7 assessed: 12/28/24 Feeling nervous, anxious, or on edge: 1 = Several days Not being able to stop or control worryin = Several days Worrying too much about different things: 1 = Several days Trouble relaxin = Several days Being so restless that it is hard to sit still: 1 = Several days Becoming easily annoyed or irritable: 1 = Several days Feeling afraid as if something awful might happen: 1 = Several days Total ORLANDO-7 score (0-4 normal; 5-9 mild; 10-14 moderate; 15-21 severe): 7 Source: Developed by Drs. Fidel Franco, Maryjo Smith, Chas Gomes and colleagues, with an educational leyda from [employer] ORLANDO-7 Assessment Billing ORLANDO-7 Assessment Tool: ORLANDO-7 Assessment 20543 Review of Systems Const Details: Denies chills, Denies fatigue, Denies fever(s), Denies headache(s) and Denies weakness HEENT Denies change in vision, Denies dizziness, Denies headache(s), Denies hearing loss, Denies nasal congestion, Denies sinus pain, Denies sinus pressure and Denies sore throat Card Denies chest pain, Denies lightheadedness, Denies dyspnea and Denies other (palpitations) Resp Denies cough, Denies dyspnea and Denies wheezing GI Denies abdominal pain, Denies melena, Denies hematochezia, Denies change in bowel habits, Denies dyspepsia and Denies nausea Denies hematuria and Denies dysuria Musc Reports ataxia, Denies myalgias, Denies arthralgias, Denies numbness and Denies tingling Skin/Breast Denies rash, Denies unusual bruising and Denies wounds Neuro Reports ataxia, reports left-sided numbness and diminished sensation, Denies dizziness, Denies headache(s), Denies memory loss, Denies tingling and Denies weakness Psych Reports anxiety, Reports depression and Denies memory loss Endo Denies cold intolerance, Denies fatigue, Denies heat intolerance, Denies polydipsia and Denies polyuria Jose Manuel/Lymph Denies easy bleeding and Denies easy bruising Aller/Immun Denies wheezing Physical exam (Primary Care) Vital Signs: Last Vital Signs Temp 97.6 F 12/28/24 13:16 Pulse 85 12/28/24 13:16 Resp 16 12/28/24 13:16 BP 115/71 12/28/24 13:16 Pulse Ox 100 12/28/24 13:16 Oxygen Delivery Method Room Air 12/28/24 13:16 BMI result Body Mass Index 28.7 Tobacco/Smoking Status: Tobacco use Status Tobacco use date assessed 12/28/24 12/28/24 13:16 Patient Tobacco Use Status Former Tobacco user 12/28/24 13:16 e-Cigarette/Vaping Use Currently Using 12/28/24 13:16 PHQ-9: PHQ-9 Score PHQ-9: Total score 10 12/29/24 10:53 Depression Screening Interpretation: Positive Depression Screening Follow-up: Existing condition Thrive Assessment: Date of Thrive Assessment Date Thrive assessed 12/28/24 12/28/24 13:09 Currently or been in a relationship where the following occur: No concerns reported Const Other: General: no acute distress, well developed, alert and awake Nutritional Appearance: well nourished Orientation/consciousness: patient oriented x3 HENMT Head: Yes normocephalic and Yes atraumatic Ears: hearing grossly normal bilaterally and TM's normal bilaterally General nose exam: Normal external nose present and Normal nares present Mouth: Normal oral and palatal mucosa present and moist mucous membranes Teeth and gingiva: dentition normal Throat: Yes oropharynx normal Eyes Pupils: Equal, round and reactive pupils present and Pupil accommodation reflex normal EOM: EOMs intact bilaterally Neck Neck: Yes normal visual inspection, Yes no lymphadenopathy and Yes trachea midline Thyroid: Thyroid normal Carotids: no bruits Lymphatic: no lymphadenopathy noted Chest Chest palpation & inspection: normal inspection of the chest Resp Effort & Inspection: normal respiratory effort Auscultation: clear to auscultation bilaterally Cardio Rate: regular rate Rhythm: regular rhythm Heart sounds: S1 normal heart sound present, S2 normal heart sound present, no gallops, no murmurs and no rubs Bruits: no abdominal aortic bruits and no carotid bruits GI Palpation (GI): No Abdominal aortic bruit present, Soft to palpation, nontender, No hepatosplenomegaly present and No Rebound tenderness present Auscultation: normal bowel sounds General: Yes no CVA tenderness Back/Spine/Pelvis Back: no CVA tenderness Cervical Spine: cervical ROM normal and No Cervical spine tenderness Thoracic/Lumbar Spine: thoraco-lumbar ROM normal, No pain with thoraco-lumbar ROM, No thoracic spinal tenderness and No lumbar spinal tenderness Skin General: warm and dry. Normal skin color. Normal skin turgor Lesions: no lesions Rashes: no rashes Trauma: no lacerations or abrasions Wounds: no wounds Nails: normal Neuro General: patient oriented x3, slight unsteady gait and CN's II-XI intact bilaterally Cranial nerves: Yes Equal, round and reactive pupils present Cognition (Neuro): normal cognition Gait exam (Neuro): Slight unsteady gait favoring the left lower extremity Motor exam (neuro): 5/5 motor strength present throughout Sensory Exam: No Sensory deficit (Neuro) Deep tendon reflexes (DTR's): Right patellar reflex intensity grade: 2+ and Left patellar reflex intensity grade: 2+ Extrem General: Yes normal to inspection, No edema and No calf tenderness Psych Appearance: grossly normal Affect: normal affect Attitude: cooperative Thought process: Normal thought process present Coding Level of Care Code New Pt Level 4 (86140) New Pt Prev Care 40-64y(43270) Diagnoses Normal physical examination, routine Z00.00 Hypertension I10 Left sided numbness R20.0 Ataxia R27.0 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 Sleep disturbance G47.9 Snoring R06.83 Anxiety and depression F41.9; F32.A Breast cancer screening by mammogram Z12.31 Pap smear for cervical cancer screening Z12.4 Engages in vaping Z72.89 Laboratory tests ordered as part of a complete physical exam (CPE) Z00.00 Additional Codes ORLANDO-7 Assessment Billing - ORLANDO-7 Assessment Tool: ORLANDO-7 Assessment 09135 ([id number]) PHQ-9 - 35536 - PHQ-9 Billing: Yes ([id number]) Assessment & Plan Assessment & Plan (1) Normal physical examination, routine: Code(s): Z00.00 - Encounter for general adult medical examination without abnormal findings Category: Medical Plan: Normal physical exam except for slight unsteady gait favoring the left lower extremity. Continue current treatment regimen. Perform blood work before next visit. Follow-up in 1 month for hypertension, anxiety, and depression. Return sooner with symptoms or concerns. Verbalized understanding and agreed with treatment plan. (2) Hypertension: Code(s): I10 - Essential (primary) hypertension Category: Medical Plan: Resting blood pressure is 115/71, within goal of less than 130/80. Continue current treatment regimen. Low-sodium diet encouraged. She has an appointment to establish with cardiology next week. Return in 1 month. Verbalized understanding and agreed with treatment plan. (3) Left sided numbness: Code(s): R20.0 - Anesthesia of skin Category: Medical Plan: Continued ataxia, numbness, and cold and diminished sensation to the left since of her body (from her head down to toes). Her symptoms have have been ongoing since her recent hospitalization. She attributes her ataxia to left lower extremity numbness. She wishes to continue physical therapy but only home PT because she is unable to drive due to numbness and ataxia. She He is not followed neurology. Slight unsteady gait favoring the left lower extremity. 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 Referred to [facility] neurology for follow-up. Referred to [facility] services for home PT. Instructed on safety to prevent fall. Follow-up with worsening or new symptoms. Verbalized understanding and agreed with treatment plan. (4) Ataxia: Code(s): R27.0 - Ataxia, unspecified Category: Medical Plan: Plan as above. (5) Central pontine myelinolysis: Code(s): G37.2 - Central pontine myelinolysis Category: Medical Plan: Plan as above. (6) Extra-pontine myelinolysis: Code(s): G37.89 - Other specified demyelinating diseases of central nervous system Category: Medical Plan: Plan as above. (7) Sleep disturbance: Code(s): G47.9 - Sleep disorder, unspecified Category: Medical Plan: She has difficulty falling asleep or maintaining sleep. She sleeps an average of 6 hours. She snores, according to her mom. She has never been diagnosed of sleep apnea or had a sleep study. Anxiety and depressive symptoms may contribute to sleep disturbance. Citalopram as prescribed. Instructed on sleep hygiene. Referred to sleep medicine for sleep study. Follow-up with worsening or new symptoms. Verbalized understanding and agreed with the treatment plan. (8) Snoring: Code(s): R06.83 - Snoring Category: Medical Plan: Plan as above. (9) Anxiety and depression: Code(s): F41.9 - Anxiety disorder, unspecified; F32.A - Depression, unspecified Category: Medical Plan: Reports anxiety and depressive symptoms. Has not been on psychotropic medication for over a year. She was on Citalopram. Since she came off the medication, she has been crying frequently due to stressors and sadness. She wants to restart the medication. No history of psychiatric hospitalization. No h/o psychotherapy and is not interested at the times. She has never been followed by a psychiatrist. PHQ-9 and ORLANDO-7 scores revealed moderate depression and mild anxiety respectively. Will start Celexa 10 mg daily; advised to take as prescribed. Instructed on the risks, benefits, and potential adverse reactions of the medication. Routine exercise encouraged. Follow-up in 1 month or sooner with worsening or new symptoms. Verbalized understanding and agreed with treatment plan. (10) Breast cancer screening by mammogram: Code(s): Z12.31 - Encounter for screening mammogram for malignant neoplasm of breast Category: Medical Plan: She has never had a mammogram. Mammogram ordered. (11) Pap smear for cervical cancer screening: Code(s): Z12.4 - Encounter for screening for malignant neoplasm of cervix Category: Medical Plan: Last pap smear test was 3 years ago: Normal. Referred to [facility] recruitment specialist for a pap smear test. (12) Engages in vaping: Code(s): Z72.89 - Other problems related to lifestyle Category: Medical Plan: She has been vaping nicotine twice daily for the past 14 months. Instructed on the health risks and complications of vaping and encouraged to stop. She declines medication treatment for nicotine dependence. Follow-up as needed. Verbalized understanding and agreed with treatment plan. (13) Laboratory tests ordered as part of a complete physical exam (CPE): Code(s): Z00.00 - Encounter for general adult medical examination without abnormal findings Category: Medical Plan: Fasting labs ordered as part of a complete physical exam. Advised to fast for at least 10 hours before getting labs drawn. May drink water Verbalized understanding and agreed with treatment plan. Orders: Orders Glucose Fasting 12/28/24 Z00.00 - Encounter for general adult medical examination without abnormal findings Lipid Panel 12/28/24 Z00. - Encounter for general adult medical examination without abnormal findings Microalbumin, Random (w Creat) 12/28/24 Z00.00 - Encounter for general adult medical examination without abnormal findings MM screening mammo BI 12/28/24 Z12.31 - Encounter for screening mammogram for malignant neoplasm of breast WBC ONLY 12/28/24 Z00.00 - Encounter for general adult medical examination without abnormal findings Vitamin D 25-OH Total 12/28/24 Z00.00 - Encounter for general adult medical examination without abnormal findings Total Protein 12/28/24 Z00.00 - Encounter for general adult medical examination without abnormal findings Referrals Sleep Medicine Referral G47.9 - Sleep disorder, unspecified, R06.83 - Snoring EEG TECH Referral Z12.4 - Encounter for screening for malignant neoplasm of cervix Neurology Referral G37.2 - Central pontine myelinolysis, G37.89 - Other specified demyelinating diseases of central nervous system, R20.0 - Anesthesia of skin, R27.0 - Ataxia, unspecified [facility] Referral R20.0 - Anesthesia of skin, R27.0 - Ataxia, unspecified Medications: New citalopram 10 mg PO DAILY 30 days 30 tabs 3RF Patient Instructions: Total time spent caring for the patient today was 75 minutes. This includes time spent before the visit reviewing the chart, time spent during the visit, and time spent after the visit on documentation, reviewing laboratory results, diagnostic imaging, medications, performing a medically necessary evaluation, counseling on diagnoses, care coordination, ordering appropriate tests, ordering appropriate medications, review of tests performed by other providers, reporting test results with the patient, communication with other healthcare providers.
[2024-12-28 13:16] VITALS: BP 115/71; PULSE 85; RESP 16; TEMP 36.4; O2SAT 100; BMI 28.7
== END 2024-12-28 14:48 | disposition home or self-care (01) ==
LOC: HO.HMCFM 13:04
PROVIDERS: PCP Nurse Practitioner Family; Visit Provider Nurse Practitioner Family
DX: Z00.00 Encounter for general adult medical examination without abnormal findings (principal); G37.2 Central pontine myelinolysis; G37.89 Other specified demyelinating diseases of central nervous system; I10 Essential (primary) hypertension; R20.0 Anesthesia of skin; R27.0 Ataxia, unspecified; G47.9 Sleep disorder, unspecified; R06.83 Snoring; F41.9 Anxiety disorder, unspecified; F32.A Depression, unspecified; Z12.31 Encounter for screening mammogram for malignant neoplasm of breast

== ENCOUNTER → 2024-12-28 13:03 | Outpatient (BNVA) | payer BC, SELFPAY | PROVIDERS: PCP Nurse Practitioner Family; Visit Provider Nurse Practitioner Family | DX: Z00.00 Encounter for general adult medical examination without abnormal findings (principal); I10 Essential (primary) hypertension; R20.0 Anesthesia of skin; R27.0 Ataxia, unspecified; G37.2 Central pontine myelinolysis; G37.89 Other specified demyelinating diseases of central nervous system; G47.9 Sleep disorder, unspecified; R06.83 Snoring; F41.9 Anxiety disorder, unspecified; F32.A Depression, unspecified; Z72.89 Other problems related to lifestyle | CPT/HCPCS: 96127 ==

== ENCOUNTER 2024-12-31 08:28 | Outpatient (AMB) | payer BC, SELFPAY ==
[2024-12-31 08:39] VITALS: BP 80/62; PULSE 78; BMI 28.8
--- NOTE | 2024-12-31 08:39 | MHC.OFFVIS ---
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[employer] Required: No Allergies No Known Allergies Allergy (Verified 12/31/24 08:41) Medication List - Last Reconciled 12/31/24 by Janis Pena NP-C amlodipine 10 mg See Protocol PO DAILY carvedilol 12.5 mg See Protocol PO BID citalopram 10 mg PO DAILY 30 days cyanocobalamin (vitamin B-12) 500 mcg PO DAILY diazepam 2 mg PO TID PRN folic acid 1 mg PO DAILY furosemide 20 mg See Protocol PO DAILY meclizine 25 mg PO Q8H PRN multivitamin (Daily-Toya tablet) 1 tab PO DAILY sacubitril-valsartan 49-51 mg (Entresto) 1 tab See Protocol PO BID spironolactone 12.5 mg See Protocol PO DAILY thiamine mononitrate (vit B1) 100 mg PO DAILY HPI HPI [facility] Hosp F/U: Details: Marina is a 44 yo female with PMH of HTN who was recently admitted to [facility] with lightheadedness, off balance and found to have uncontrolled HTN, BP 200/104. She had not been taking her antihypertensives for about 1 year. Echo showed reduced EF. She had left-sided numbness and brain MRI showed no acute findings. She was evaluated by Neurology. She was started on appropriate medical management for hypertension and cardiomyopathy and now presents for follow up. Today she states that she has been taking her meds as directed. She has had some lightheadedness and seeing spots. She continues to have numbness to the left side of her body. She was evaluated for possible TIA/CVA without acute findings. She has seen her PCP who was referred her back to Neurology and to start physical therapy. She has no chest discomfort at rest or with activity. No shortness of breath, PND, orthopnea or edema. No presyncope, syncope, falls. Has been increasing her fluid intake. 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 Mother is present. [facility] Medical History Extra-pontine myelinolysis Central pontine myelinolysis Hypertension Ataxia Psoriasis Depression Anxiety Frequent headaches Scoliosis Arthritis Stroke (cerebrum) Systolic heart failure Family History Father CAD (coronary artery disease) Buerger disease Alcohol abuse Substance abuse High blood pressure Clotting disorder Maternal Grandmother High cholesterol Diabetes Cancer Social History Household Members: Family Housing: House Do you presently have visiting nurse or other home services: No Unable to assess alcohol history related to: Unknown Patient Tobacco Use Status: Former Tobacco user Cigarettes Per Day: 6 e-Cigarette/Vaping Use: Currently Using Second Hand Smoke Exposure: No service: No Current occupational status: employed Current occupation: [employer] Cognitive needs: No Hearing needs: No Vision needs: Yes (wears contacts) Review of Systems Const Details: numbness sensation to left side of her body All systems reviewed & are unremarkable except as noted in HPI and below ENT Reports dizziness Card Denies chest pain, Denies chest pain at rest, Denies chest pain with activity, Denies rapid heart rate, Denies pedal edema, Denies edema, Denies leg edema, Denies lightheadedness, Denies palpitations, Denies dyspnea, Denies dyspnea on exertion and Denies orthopnea Resp Denies cough, Denies dyspnea and Denies dyspnea on exertion GI Denies hematochezia and Denies change in stool character Musc Denies abnormal gait, Denies limited range of motion, Denies muscle cramps, Denies muscle weakness, Denies numbness, Denies radiating pain into limb, Denies stiffness and Denies tingling Neuro Denies abnormal gait, Reports dizziness, Denies numbness and Denies tingling Endo Denies palpitations Physical Exam Vital Signs: Last Vital Signs Pulse 78 12/31/24 08:39 BP 80/62 L 12/31/24 08:39 BMI result Body Mass Index 28.8 Const General: cooperative, healthy appearing, comfortable and no acute distress Orientation/consciousness: patient oriented x3 Neck Neck: Yes normal visual inspection and Yes no JVD Resp Effort & Inspection: normal respiratory effort Auscultation: clear to auscultation bilaterally, no rales, no rhonchi and no wheezes Cardio Jugular venous distension: no JVD Rate: regular rate Rhythm: regular rhythm Heart sounds: S1 normal heart sound present, S2 normal heart sound present, no murmurs and no rubs Neuro General: patient oriented x3 Extrem General: Yes normal to inspection and No no pedal edema Psych Appearance: grossly normal Mental Status: mental status grossly normal Speech and movement: Normal speech and movement present Assessment & Plan Assessment & Plan (1) Uncontrolled hypertension: Code(s): I10 - Essential (primary) hypertension Category: Medical Plan: Hx of HTN and was not taking her lisinopril 20 mg daily for at least 1 year. Blood pressure in the emergency room was as high as 200/104. Echo showed EF 35%, grade II diastolic disfunction, moderate LVH. She had mild Congestive heart failure. Renal ultrasound showed no renal artery stenosis. During her admission she was started on meds for blood pressure control and cardiomyopathy. Today she has symptomatic hypotension with blood pressure as low as 78/40 when checked by me. She is not orthostatic, blood pressure with standing 92/42. Will have her stop hydralazine. Monitor home blood pressures and if remains low, with systolic less than 100, instructed to reduce amlodipine down to 5 mg daily. Continue carvedilol, Entresto, Lasix, Aldactone. Instructed to call if blood pressures remain low or if systolic is running greater than 140. Need for each medication reviewed with her. Will have her update BMP. (2) Cardiomyopathy: Code(s): I42.9 - Cardiomyopathy, unspecified Category: Medical Plan: New finding of cardiomyopathy. Most likely related to uncontrolled hypertension however ischemia needs to be ruled out. Her echocardiogram did show basal inferior akinesis. She has no anginal symptoms. Will check a CTA of the coronary arteries to evaluate for obstructive coronary artery disease. Continue with good blood pressure control. (3) Abnormal echocardiogram: Code(s): R93.1 - Abnormal findings on diagnostic imaging of heart and coronary circulation Category: Medical Plan: As above (4) Heart failure with reduced ejection fraction: Code(s): I50.20 - Unspecified systolic (congestive) heart failure Category: Medical Plan: Mild Congestive heart failure during recent admission. BNP elevated to 412. He was given IV diuretic and sent home with Lasix 20 mg daily as well as Aldactone 12.5 mg daily. She does not appear fluid overloaded on exam today. Continue carvedilol, Entresto, Lasix and Aldactone. (5) Hospital discharge follow-up: Code(s): Z09 - Encounter for follow-up examination after completed treatment for conditions other than malignant neoplasm Category: Medical Plan: As above Orders: Orders Basic Metabolic Panel Today R93.1 - Abnormal findings on diagnostic imaging of heart and coronary circulation CT Cardiac Coronary Angio Today I42.9 - Cardiomyopathy, unspecified, R93.1 - Abnormal findings on diagnostic imaging of heart and coronary circulation Coding Level of Care Code Est Pt Level 4 (32491) Complex EM visit Add On G2211 Diagnoses Uncontrolled hypertension I10 Cardiomyopathy I42.9 Abnormal echocardiogram R93.1 Heart failure with reduced ejection fraction I50.20 Hospital discharge follow-up Z09 Time Spent (min) 36
--- OUTSIDE RECORDS SUMMARY | 2024-12-31 08:43 | XMS_ITS | Data Portability ---
Author Organization KATHLEEN Lema s, [address] Address [address] [place] [address] Assessment No assessment recorded. Plan of Treatment Reminders Order Date Submit Date Provider Last Modified By Organization Details Last Modified Time Details Appointments None recorded. Lab SARS CoV 2 (COVID-19) Ag, QL, IA, upper respiratory specimen 2023 024 [id number], [address] [place], [address], 4 09:39:40 rapid flu (A+B) 2023 024 [email or web address] [address] [place], [address], 4 09:39:40 Referral emergency medicine referral 2023 024 [email or web address] 2 Not available 4 09:48:12 Procedures None recorded. Surgeries None recorded. Imaging XR, chest, 2 view 2023 024 [facility], [address] [facility], [place], [address], 4 10:02:31 Medication Orders Zithromax Z-Florencio 250 mg tablet 2023 024 [facility]266, [address] [place], [place], [phone], 4 09:39:46 albuterol sulfate HFA 90 mcg/actuati on aerosol inhaler 2023 [facility] #50481, [address], [place], [phone], 4 09:39:46 amoxicillin 875 mg-potdemetriusiu m clavulanate 125 mg tablet 2023 024 [facility] #85270, [address] [place], [place], [phone], 4 09:39:47 Patient TargetsNo targets recorded. Patient InstructionsNo instructions recorded. Reason for Referral Emergency Medicine Referral for Hypertensive urgency Referring Physician: Virgilio Szymanski, Urgent Care, Encounter Date: 09/25/2024 Results Created Date Observation Date Name Description Value Unit Range Abnormal Flag Note LastModifiedBy Organization Detail LastModifiedTime 09/25/2009/25/2024 rapid flu (A+B) Unknown Analyte negati ve Not Available [facility] [address] [place], [address], 09/25/2024 09:15:49 09/25/2009/25/2024 rapid flu (A+B) Unknown Analyte negati ve Not Available [facility] [address] [place], [address], 09/25/2024 09:15:49 09/25/20 24 09/25/2024 SARS CoV 2 (COVI D-19) Ag, QL, IA, upper respi rator y speci men Unknown Analyte negati ve Not Available [facility] [address] [place], [address], 09/25/2024 09:15:39 09/25/20 24 09/25/2024 XR, chest , 2 view No observ ation record ed. [email or web address] [facility] [address] [facility] [place], [address], 09/25/2024 10:04:28 Result Notes None recorded. Problems No Known Problems Procedures Surgical History None recorded. Imaging Results Imaging Date Name Status LastModified by Organiz ation Details LastModified Time 09/25/2024 XR, chest, 2 view completed [email or web address] [facility] [address] [facility] [place], [address], 09/25/2024 10:04:28 Procedure Notes None recorded. Medical [...] Updated DateTime 4 172.72 cm 28 kg/m2 48041 g 98 [degF] 22 /min 95 /min 99 % 99 % 220 mm[Hg] 154 mm[Hg] Mandy Key PA - [facility] 4 09:06:14 Date Recorded Systolic blood pressure Diastolic blood pressure Provider Name and Address Organization Details Last Updated DateTime 09/25/2024 210 mm[Hg] 135 mm[Hg] Virgilio Szymanski, DO [address], [place], [address], PA - [facility] 09/25/2024 09:13:42 Social History Question Answer Notes LastModified by Organizat ion Details LastModified Time Tobacco Smoking Status Former Smoker KATHLEEN Mendenhall - [facility] 09/25/2024 09:03:57 What Is Your Level Of Alcohol Consumption? Occasional Information not available 09/25/2024 How Many Times Per Week Do You Consume Alcohol? 1-2 Times Per Week Information not available 09/25/2024 Have You Had A Flu Shot This Season? No [email or web address] Information not available 09/25/2024 Do You Use Any Illicit Or Recreational Drugs? No Information not available 09/25/2024 Have You Recently Traveled Abroad? No [email or web address] Information not available 09/25/2024 Sex: Unknown Functional Status None recorded. Mental Status None recorded. Family History Relationship Description Onset Age of this Age Resolved Age Notes LastModified by Organization Details LastModified Time Father No current problems or disability deceas ed [email or web address] Not available 09/25/2024 09:03:25 Mother No current problems or disability [email or web address] Not available 09/25 09:03:10 Medical History No medical history recorded. Gynecological History Statement/Question Response Date of LMP 09/03/2024 Is there any chance of ? No LMP Definite Obstetrics History GPAL:G 0 P 0 0 0 0 Past Encounters Encounter ID Performer Location Encounter Start Date Encounter Closed Date Diagnosis/Indication Diagnosis SNOMED-CT Code Diagnosis ICD10 Code Diagnosis [place] [id number] [place] [address] [place] [address] 09/25/2024 08:58:10 09/25/2024 09:48:12 Cough 61214245 R05.9 CXR suggestive of BL PNA - [...] the Emergency Department urgently. Hypertensive urgency 443 [id number] I16.0 likely exacerbate d by current illnessLaura [...] Hu Member ID Guarantor Name 09/25/2024 1 [facility] (MEDICARE REPLACEMENT/A DVANTAGE - HMO) [id number] Marina Crowe [id number] Marina Crowe Notes Date Note Type Note [...] Szymanski, DO [address] [place], [address], PA - [facility] 09/25/2024 09:53:04 OBGyn Episode No OBEpisode recorded.
== END 2024-12-31 09:28 | disposition home or self-care (01) ==
LOC: HO.HCS 08:29
PROVIDERS: PCP Nurse Practitioner Family; Visit Provider Nurse Practitioner Family
DX: I10 Essential (primary) hypertension (principal); I42.9 Cardiomyopathy, unspecified; R93.1 Abnormal findings on diagnostic imaging of heart and coronary circulation; I50.20 Unspecified systolic (congestive) heart failure; Z09 Encounter for follow-up examination after completed treatment for conditions other than malignant neoplasm
CPT/HCPCS: 99214

== ENCOUNTER → 2024-12-31 08:28 | Outpatient (BNVA) | payer BC, SELFPAY | PROVIDERS: PCP Nurse Practitioner Family; Visit Provider Nurse Practitioner Family ==

== ENCOUNTER 2025-02-08 09:12 | Outpatient (REF) | payer BC, SELFPAY ==
--- OUTSIDE RECORDS SUMMARY | 2025-02-08 10:01 | XMS_ITS | Data Portability ---
Author Organization KATHLEEN Lema s, [address] Address [address] [place] [address] Assessment No assessment recorded. Plan of Treatment Reminders Order Date Submit Date Provider Last Modified By Organization Details Last Modified Time Details Appointments None recorded. Lab SARS CoV 2 (COVID-19) Ag, QL, IA, upper respiratory specimen 2023 024 [id number], [address] [place], [address], 4 09:39:40 rapid flu (A+B) 2023 024 [email or web address] [facility], [address] [place], [address], 4 09:39:40 Referral emergency medicine referral 2023 024 [email or web address] 2 Not available 4 09:48:12 Procedures None recorded. Surgeries None recorded. Imaging XR, chest, 2 view 2023 024 [facility], [address] [facility], [place], [address], 4 10:02:31 Medication Orders Zithromax Z-Florencio 250 mg tablet 2023 024 [facility]19693, [address] [place], [place], [phone], 4 09:39:46 albuterol sulfate HFA 90 mcg/actuati on aerosol inhaler 2023 [facility] #28351, [address] [place], [place], [phone], 4 09:39:46 amoxicillin 875 mg-potdemetriusiu m clavulanate 125 [address] tablet [address] [facility] #94884, [address] [place], [place], [id number], 4 09:39:47 Patient TargetsNo targets recorded. Patient InstructionsNo instructions recorded. Reason for Referral Emergency Medicine Referral for Hypertensive urgency Referring Physician: Virgilio Szymanski, Urgent Care, Encounter Date: 09/25/2024 Results Created Date Observation Date Name Description Value Unit Range Abnormal Flag Note LastModifiedBy Organization Detail LastModifiedTime 09/25/2009/25/2024 rapid flu (A+B) Unknown Analyte negati ve Not Available [facility] [address] [place], [address], 09/25/2024 09:15:49 09/25/2009/25/2024 rapid flu (A+B) Unknown Analyte negati ve Not Available [facility] [address] [place], [address], 09/25/2024 09:15:49 09/25/20 24 09/25/2024 SARS CoV 2 (COVI D-19) Ag, QL, IA, upper respi rator y speci men Unknown Analyte negati ve Not Available [facility] [address] [place], [address], 09/25/2024 09:15:39 09/25/20 24 09/25/2024 XR, chest , 2 view No observ ation record ed. [email or web address] [facility] [address] [facility] [place], [address], 09/25/2024 10:04:28 Result Notes None recorded. Problems No Known Problems Procedures Surgical History None recorded. Imaging Results Imaging Date Name Status LastModified by Organiz ation Details LastModified Time 09/25/2024 XR, chest, 2 view completed [email or web address] [facility] [address] [facility] [place], [address], 09/25/2024 10:04:28 Procedure Notes None recorded. Medical [...] Updated DateTime 4 172.72 cm 28 kg/m2 64914 g 98 [degF] 22 /min 95 /min 99 % 99 % 220 mm[Hg] 154 mm[Hg] Mandy Key PA - [facility] 4 09:06:14 Date Recorded Systolic blood pressure Diastolic blood pressure Provider Name and Address Organization Details Last Updated DateTime 09/25/2024 210 mm[Hg] 135 mm[Hg] Virgilio Szymanski, DO [address], [place], [address], [place] - [facility] 09/25/2024 09:13:42 Social History Question Answer Notes LastModified by Organizat ion Details LastModified Time Tobacco Smoking Status Former Smoker KATHLEEN Mendenhall - [facility] 09/25/2024 09:03:57 What Is Your Level Of Alcohol Consumption? Occasional Information not available 09/25/2024 How Many Times Per Week Do You Consume Alcohol? 1-2 Times Per Week [email or web address] Information not available 09/25/2024 Have You Had A Flu Shot This Season? No [email or web address] Information not available 09/25/2024 Do You Use Any Illicit Or Recreational Drugs? No [email or web address] Information not available 09/25/2024 Have You Recently Traveled Abroad? No [email or web address] Information not available 09/25/2024 Sex: Unknown Functional Status None recorded. Mental Status None recorded. Family History Relationship Description Onset Age of this Age Resolved Age Notes LastModified by Organization Details LastModified Time Father No current problems or disability deceas ed Not available 09/25/2024 09:03:25 Mother No current problems or disability [email or web address] Not available 09/25 09:03:10 Medical History No medical history recorded. Gynecological History Statement/Question Response Date of LMP 09/03/2024 Is there any chance of ? No LMP Definite Obstetrics History GPAL:G 0 P 0 0 0 0 Past Encounters Encounter ID Performer Location Encounter Start Date Encounter Closed Date Diagnosis/Indication Diagnosis SNOMED-CT Code Diagnosis ICD10 Code Diagnosis [place] [id number] [place] [address] [place] [address] 09/25/2024 08:58:10 09/25/2024 09:48:12 Cough 69698326 R05.9 CXR suggestive of BL PNA - [...] the Emergency Department urgently. Hypertensive urgency [id number] I16.0 likely exacerbate d by current illnessLaura [...] Hu Member ID Guarantor Name 09/25/2024 1 [facility] (MEDICARE REPLACEMENT/A DVANTAGE - HMO) [id number] Marina Crowe [id number] Marina Crowe Notes Date Note Type Note [...] Szymanski, DO [address] [place], [address], [place] - [facility] 09/25/2024 09:53:04 OBGyn Episode No OBEpisode recorded.
[2025-02-08 11:28] LABS: Anion Gap 15 (12-20); Blood Urea Nitrogen 17 mg/dL (9-16); Calcium 8.6 mg/dL (8.4-10.2); Carbon Dioxide 24 mmol/L (22-29); Chloride 104 mmol/L (96-108); Cholesterol 215 mg/dL (<200); Estimated Glomerular Filt Rate > 60; Glucose Random 97 mg/dL (60-115); HDL Cholesterol 64 mg/dL (>40); LDL Cholesterol Calculated 134 mg/dL (<100); Potassium 4.4 mmol/L (3.3-5.1); Sodium 139 mmol/L (135-145); Triglycerides 88 mg/dL (<150)
[2025-02-08 11:29] LABS: Glucose Fasting 97 mg/dL (60-99); Neutrophils Absolute Auto 4.3 x10*3/uL (2.0-8.3)
[2025-02-08 11:50] LABS: Vitamin D 25-OH Total 40.2 ng/mL (>30)
[2025-02-08 14:48] LABS: Creatinine Urine 48.67 mg/dL; Microalbumin Urine < 5.0 mg/L
== END 2025-02-08 09:13 | disposition home or self-care (01) ==
LOC: HO.WFDLDS 09:12
PROVIDERS: Nurse Practitioner Family; Visit Provider Nurse Practitioner Family
DX: Z00.00 Encounter for general adult medical examination without abnormal findings (principal); R93.1 Abnormal findings on diagnostic imaging of heart and coronary circulation
CPT/HCPCS: 36415; 80048; 80061; 82306; 82570; 82947; 84155; 85048

== ENCOUNTER 2025-02-16 10:38 | Outpatient (AMB) | payer BC, SELFPAY ==
--- NOTE | 2025-02-16 10:41 | A.OFFPC_ITS ---
Vital Signs 02/16/25 10:47 Height 5 ft 8 in Weight 204 lb 4 oz BMI 31.1 BP 128/84 Blood Pressure Location Rt brachial Position Sitting Respiration 16 Pulse 83 Pulse Source Pulse Oximeter Temp 98.2 F Temp Source Oral Pulse Oximetry (%) 98 Oxygen Delivery Method Room Air Intake Visit Reasons: 1 mos HTN, anxiety, depression, labs review Intake Note: patient here for follow up on HTN, anxiety, depression and lab review. Filenet P8 Developer Required: No Is last menstrual period known: Yes Last menstrual period: 02/16/25 Post menopausal: No Patient : No Allergies No Known Allergies Allergy (Verified 02/16/25 10:46) Tobacco use date assessed: 02/16/25 Dental Screening Dental Screen Date: 02/16/25 Did you have a dental visit in the last 12 months?: No Did you have a dental problem in the last 6 months where you did not have access to dental care?: No Was dental information given to patient?: Yes HPI HPI Comments History of Present Illness Details 44-year-old female presents for hyperten claudia, anxiety, depression and review of recent lab results follow-up. She admits to taking her medications as prescribed without adverse reactions. She notes that her anxiety and depressive symptoms are well controlled with current treatment regimen. She notes that she has not been contacted by PT for home PT for ataxia since she was referred by her PCP in the middle of December. She notes that her balance has improved since her last visit; she occasionally feels unsteady. Numbness to her left side has resolved. However, she has been experiencing tingling/sunburn sensation to her entire left side. She has an appointment with [facility]rology for central pontine and extra- pontine myelinolysis in May 2025. She has been physically inactive due to her ongoing symptoms. She gained about 16 lb since her last visit. [facility] Medical History Extra-pontine myelinolysis Central pontine myelinolysis Hypertension Ataxia Psoriasis Depression Anxiety Frequent headaches Scoliosis Arthritis Stroke (cerebrum) Systolic heart failure Family History Father CAD (coronary artery disease) Buerger disease Alcohol abuse Substance abuse High blood pressure Clotting disorder Maternal Grandmother High cholesterol Diabetes Cancer Social History Household Members: Family Housing: House Do you presently have visiting nurse or other home services: No Unable to assess alcohol history related to: Unknown Patient Tobacco Use Status: Former Tobacco user Cigarettes Per Day: 6 e-Cigarette/Vaping Use: Currently Using Second Hand Smoke Exposure: No service: No Current occupational status: employed Current occupation: [employer] Cognitive needs: No Hearing needs: No Vision needs: Yes (wears contacts) Female Reproductive History Menstrual Date of last menstrual period: 02/16/25 Questionnaire PHQ-9 Over the last 2 weeks, how often have you been bothered by any of the following problems? 1. Little interest or pleasure in doing things: several days 2. Feeling down, depressed, or hopeless: several days 3. Trouble falling or staying asleep, or sleeping too much: more than half the days 4. Feeling tired or having little energy: several days 5. Poor appetite or overeating: several days 6. Feeling bad about yourself - or that you are a failure or have let yourself or your family down: several days 7. Trouble concentrating on things, such as reading the newspaper or watching television: several days 8. Moving or speaking so slowly that other people could have noticed. Or the opposite - being so fidgety or restless that you have been moving around a lot more than usual: not at all 9. Thoughts that you would be better off or of hurting yourself in some way: not at all Total score: 8 Depression Screening Interpretation: Positive Depression Screening Follow-up: Existing condition and In treatment Depression Screening Done: Yes 78130 - PHQ-9 Billing: Yes Source: Developed by Drs. Fidel Franco, Maryjo Smith, Chas Gomes and colleagues, with an educational leyda from [employer]. Thrive Questionnaire Date Thrive assessed: 02/16/25 I am a: Patient What is your living situation today?: I have a steady place to live Within the past 12 months, did the food you bought not last and you didn't have the money to get more?: Never true Within the past 12 months, did you worry whether your food would run out before you got money to buy more?: Never true Do you have trouble paying for medicines?: No Do you have trouble getting transportation to medical appointments?: No Do you have trouble paying your heating and electricity bill?: No Do you have trouble taking care of your child, family member or friend?: No Do you have trouble with day-to-day activities such as bathing, preparing meals, shopping, managing finances, etc.?: No Are you currently unemployed and looking for a job?: I choose not to answer this question Are you interested in more education?: No Please select the resources that you would like help with: None Currently or been in a relationship where the following occur: No concerns reported THRIVE Score: 0 ORLANDO-7 AMB Questionnaire ORLANDO-7 Date ORLANDO - 7 assessed: 02/16/25 Feeling nervous, anxious, or on edge: 1 = Several days Not being able to stop or control worryin = Several days Worrying too much about different things: 1 = Several days Trouble relaxin = Several days Being so restless that it is hard to sit still: 1 = Several days Becoming easily annoyed or irritable: 1 = Several days Feeling afraid as if something awful might happen: 1 = Several days Total ORLANDO-7 score (0-4 normal; 5-9 mild; 10-14 moderate; 15-21 severe): 7 Source: Developed by Drs. Fidel Franco, Maryjo Smith, Chas Gomes and colleagues, with an educational leyda from [employer]. ORLANDO-7 Assessment Billing ORLANDO-7 Assessment Tool: ORLANDO-7 Assessment 66342 Review of Systems Const Details: Const Denies chills, Denies fatigue, Denies fever(s), Denies headache(s) and Denies weakness ENT Denies dizziness and Denies headache(s) Card Denies chest pain, Denies lightheadedness, Denies dyspnea and Denies other (Palpitations) Resp Denies cough, Denies dyspnea, Denies wheezing and Denies other ( shortness of breath) GI Denies abdominal pain, Denies melena, Denies hematochezia, Denies change in bowel habits, Denies dyspepsia and Denies nausea Denies hematuria and Denies dysuria Musc Denies abnormal gait, Denies myalgias, Denies arthralgias, Denies numbness and Denies tingling Skin/Breast Denies rash, Denies unusual bruising and Denies wounds Neuro Denies abnormal gait, Denies dizziness, Denies headache(s), Denies memory loss, Denies numbness, Denies Sensory deficit (Neuro), Reports tingling and Denies weakness Psych Denies anxiety, Denies depression, Denies memory loss Endo Denies cold intolerance, Denies fatigue, Denies heat intolerance, Denies mercedes ydipsia and Denies polyuria Aller/Immun Denies wheezing Physical exam (Primary Care) Vital Signs: Last Vital Signs Temp 98.2 F 02/16/25 10:47 Pulse 83 02/16/25 10:47 Resp 16 02/16/25 10:47 BP 128/84 02/16/25 10:47 Pulse Ox 98 02/16/25 10:47 Oxygen Delivery Method Room Air 02/16/25 10:47 BMI result Body Mass Index 31.1 Tobacco/Smoking Status: Tobacco use Status Tobacco use date assessed 02/16/25 02/16/25 10:51 Patient Tobacco Use Status Former Tobacco user 02/16/25 10:43 e-Cigarette/Vaping Use Currently Using 02/16/25 10:43 PHQ-9: PHQ-9 Score PHQ-9: Total score 8 02/16/25 11:20 Depression Screening Interpretation: Positive Depression Screening Follow-up: Existing condition and In treatment Thrive Assessment: Date of Thrive Assessment Date Thrive assessed 02/16/25 02/16/25 10:52 Currently or been in a relationship where the following occur: No concerns reported Const Other: General: no acute distress and well developed Nutritional Appearance: well nourished Orientation/consciousness: patient oriented x3 HENMT Head: Yes normocephalic and Yes atraumatic Eyes General: appearance normal, both eyes and all related structures Pupils: Equal, round and reactive pupils present EOM: EOMs intact bilaterally Resp Effort & Inspection: normal respiratory effort Auscultation: clear to auscultation bilaterally Cardio Rate: regular rate Rhythm: regular rhythm Heart sounds: S1 normal heart sound present, S2 normal heart sound present, no gallops, no murmurs and no rubs GI Palpation (GI): No Abdominal aortic bruit present, Soft to palpation, nontender, No hepatosplenomegaly present and No Rebound tenderness present Auscultation: normal bowel sounds General: Yes no CVA tenderness Back/Spine/Pelvis Back: no CVA tenderness Cervical Spine: cervical ROM normal and No Cervical spine tenderness Thoracic/Lumbar Spine: thoraco-lumbar ROM normal, No pain with thoraco-lumbar ROM, No thoracic spinal tenderness and No lumbar spinal tenderness Extrem General: Yes normal to inspection, No edema and No calf tenderness Skin General: warm and dry. Normal skin color. Normal skin turgor Neuro General: patient oriented x3, gait normal and no focal neuro deficit Cranial nerves: Yes Equal, round and reactive pupils present Cognition (Neuro): normal cognition Gait exam (Neuro): Normal gait present Sensory Exam: No Sensory deficit (Neuro) Psych Appearance: grossly normal Affect: normal affect Attitude: cooperative Thought process: Normal thought process present Coding Level of Care Code Est Pt Level 4 (67748) Diagnoses Hypertension I10 Anxiety and depression F41.9; F32.A Hypercholesterolemia E78.00 Ataxia R27.0 Left sided numbness R20.0 Additional Codes ORLANDO-7 Assessment Billing - ORLANDO-7 Assessment Tool: ORLANDO-7 Assessment 72360 ([id number]) PHQ-9 - 45209 - PHQ-9 Billing: Yes ([id number]) Assessment & Plan Assessment & Plan (1) Hypertension: Code(s): I10 - Essential (primary) hypertension Category: Medical Plan: Blood pressure today is 128/84, within goal of less than 140/90. Continue current treatment regimen. Follow-up in 3 months or sooner with symptoms or concerns. Verbalized understanding and agreed with treatment plan. (2) Anxiety and depression: Code(s): F41.9 - Anxiety disorder, unspecified; F32.A - Depression, unspecified Category: Medical Plan: Controlled anxiety and depressive symptoms. PHQ-9 and ORLANDO-7 scores revealed mild depression and anxiety respectively. Continue current treatment management. Routine exercise encouraged. Follow-up in 3 months. Verbalized understanding and agreed with the plan. (3) Hypercholesterolemia: Code(s): E78.00 - Pure hypercholesterolemia, unspecified Category: Medical Plan: Recent total cholesterol and LDL levels are slightly elevated, 215 and 134 respectively, triglycerides and HDL levels are normal, 64 and 88 respectively. Advised to limit foods high in saturated fat and avoid foods high in trans fat. Routine exercise encouraged. Fast for 10-12 hours, may drink water, performed lipid panel blood work 2-3 days before next visit. Follow-up in 3 months. Verbalized understanding and agreed with the plan. (4) Ataxia: Code(s): R27.0 - Ataxia, unspecified Category: Medical Plan: She notes that she has not been contacted by PT for home PT for ataxia since she was referred by her PCP in the middle of December. She notes that her balance has improved since her last visit; she occasionally feels unsteady. Numbness to her left side has resolved. However, she has been experiencing tingling/sunburn sensation to her entire left side. The [facility] will contact the [facility] to verify status of PT referral. She has an appointment with [facility] in May. [facility] documentation completed and signed today. She is willing to return to work in the middle of March. Healthy diet and routine exercise encouraged. Return with symptoms or concerns. Verbalized understanding and agreed with the plan. (5) Left sided numbness: Code(s): R20.0 - Anesthesia of skin Category: Medical Plan: Plan as above. Orders: Orders Lipid Panel 3 Months E78.00 - Pure hypercholesterolemia, unspecified
[2025-02-16 10:47] VITALS: BP 128/84; PULSE 83; RESP 16; TEMP 36.8; O2SAT 98; BMI 31.1
--- OUTSIDE RECORDS SUMMARY | 2025-02-16 12:14 | XMS_ITS | Data Portability ---
Author Organization KATHLEEN Lema [facility], [address] Address [address] [place] [address] Assessment No assessment recorded. Plan of Treatment Reminders Order Date Submit Date Provider Last Modified By Organization Details Last Modified Time Details Appointments None recorded. Lab SARS CoV 2 (COVID-19) Ag, QL, IA, upper respiratory specimen 2023 024 [email or web address] [address] [facility], [address] [place], [address], 4 09:39:40 rapid flu (A+B) 2023 024 [email or web address] [address] [place], [address], 4 09:39:40 Referral emergency medicine referral 2023 024 2 Not available 4 09:48:12 Procedures None recorded. Surgeries None recorded. Imaging XR, chest, 2 view 2023 024 [facility], [address] [facility], [place], [address], 4 10:02:31 Medication Orders Zithromax Z-Florencio 250 mg tablet 2023 024 [email or web address], [address], [place], [phone], 4 09:39:46 albuterol sulfate HFA 90 mcg/actuati on aerosol inhaler 2023 [facility]14195, [address], [place], [id number], 4 09:39:46 amoxicillin 875 mg-potdemetriusiu m clavulanate 125 mg tablet 2023 024 [facility] #59784, [address], [place], [id number], 4 09:39:47 Patient TargetsNo targets recorded. Patient InstructionsNo instructions recorded. Reason for Referral Emergency Medicine Referral for Hypertensive urgency Referring Physician: Virgilio Szymanski, Urgent Care, Encounter Date: 09/25/2024 Results Created Date Observation Date Name Description Value Unit Range Abnormal Flag Note LastModifiedBy Organization Detail LastModifiedTime 09/25/2009/25/2024 rapid flu (A+B) Unknown Analyte negati ve Not Available [facility] [address] [place], [address], 09/25/2024 09:15:49 09/25/2009/25/2024 rapid flu (A+B) Unknown Analyte negati ve Not Available [facility] [address] [place], [address], 09/25/2024 09:15:49 09/25/20 24 09/25/2024 SARS CoV 2 (COVI D-19) Ag, QL, IA, upper respi rator y speci men Unknown Analyte negati ve Not Available [facility] [address] [place], [address], 09/25/2024 09:15:39 09/25/20 24 09/25/2024 XR, chest , 2 view No observ ation record ed. [email or web address] [facility] [address] [facility] [place], [address], 09/25/2024 10:04:28 Result Notes None recorded. Problems No Known Problems Procedures Surgical History None recorded. Imaging Results Imaging Date Name Status LastModified by Organiz ation Details LastModified Time 09/25/2024 XR, chest, 2 view completed [email or web address] [facility] [address] [facility] [place], [address], 09/25/2024 10:04:28 Procedure Notes None recorded. Medical [...] Updated DateTime 4 172.72 cm 28 kg/m2 54229 g 98 [degF] 22 /min 95 /min 99 % 99 % 220 mm[Hg] 154 mm[Hg] Mandy Key PA - [facility] 4 09:06:14 Date Recorded Systolic blood pressure Diastolic blood pressure Provider Name and Address Organization Details Last Updated DateTime 09/25/2024 210 mm[Hg] 135 mm[Hg] Virgilio Szymanski, DO [address], [place], [address], [place] - [facility] 09/25/2024 09:13:42 Social History Question Answer Notes LastModified by Organizat ion Details LastModified Time Tobacco Smoking Status Former Smoker KATHLEEN Mendenhall - [facility] 09/25/2024 09:03:57 What Is Your Level Of Alcohol Consumption? Occasional [email or web address] Information not available 09/25/2024 How Many Times Per Week Do You Consume Alcohol? 1-2 Times Per Week [email or web address] Information not available 09/25/2024 Have You Had A Flu Shot This Season? No [email or web address] Information not available 09/25/2024 Do You Use Any Illicit Or Recreational Drugs? No [email or web address] Information not available 09/25/2024 Have You Recently Traveled Abroad? No Information not available 09/25/2024 Sex: Unknown Functional Status None recorded. Mental Status None recorded. Family History Relationship Description Onset Age of this Age Resolved Age Notes LastModified by Organization Details LastModified Time Father No current problems or disability deceas ed [email or web address] Not available 09/25/2024 09:03:25 Mother No current [...] SNOMED-CT Code Diagnosis ICD10 Code Diagnosis Note [id number] [place] [address] [place] [address] 09/25/2024 08:58:10 09/25/2024 09:48:12 Cough [id number] R05.9 CXR suggestive of BL PNA - [...] the Emergency Department urgently. Hypertensive urgency [id number] I16.0 likely exacerbate d by current illnessLaura [...] Hu Member ID Guarantor Name 09/25/2024 1 [facility] (MEDICARE REPLACEMENT/A DVANTAGE - HMO) [id number] Marina Crowe [id number] Marina Crowe Notes Date Note Type Note [...] meds x months b/c no PCP Virgilio Szymansik, DO [address] [place], [address], [place] - [facility] 09/25/2024 09:53:04 OBGyn Episode No OBEpisode recorded.
== END 2025-02-16 11:13 | disposition home or self-care (01) ==
LOC: HO.HMCFM 10:39
PROVIDERS: PCP Nurse Practitioner Family; Visit Provider Nurse Practitioner Family
DX: I10 Essential (primary) hypertension (principal); F41.9 Anxiety disorder, unspecified; F32.A Depression, unspecified; E78.00 Pure hypercholesterolemia, unspecified; R27.0 Ataxia, unspecified; R20.0 Anesthesia of skin

== ENCOUNTER → 2025-02-16 10:38 | Outpatient (BNVA) | payer BC, SELFPAY | PROVIDERS: PCP Nurse Practitioner Family; Visit Provider Nurse Practitioner Family | DX: I10 Essential (primary) hypertension (principal); F41.9 Anxiety disorder, unspecified; F32.A Depression, unspecified; E78.00 Pure hypercholesterolemia, unspecified; R27.0 Ataxia, unspecified; R20.0 Anesthesia of skin | CPT/HCPCS: 96127 ==

== ENCOUNTER 2025-02-22 11:44 | Outpatient (REF) | payer BC, SELFPAY ==
--- OUTSIDE RECORDS SUMMARY | 2025-02-22 12:28 | XMS_ITS | Data Portability ---
Author Organization KATHLEEN Lema [facility], [address] Address [address] [place] [address] Assessment No assessment recorded. Plan of Treatment Reminders Order Date Submit Date Provider Last Modified By Organization Details Last Modified Time Details Appointments None recorded. Lab SARS CoV 2 (COVID-19) Ag, QL, IA, upper respiratory specimen 2023 024 [email or web address] [address] [facility], [address] [place], [address], 4 09:39:40 rapid flu (A+B) 2023 024 [email or web address] [address] [place], [address], 4 09:39:40 Referral emergency medicine referral 2023 024 [email or web address] 2 Not available 4 09:48:12 Procedures None recorded. Surgeries None recorded. Imaging XR, chest, 2 view 2023 024 [facility], [address] [facility], [place], [address], 4 10:02:31 Medication Orders Zithromax Z-Florencio 250 mg tablet 2023 024 [facility]09081, [address] [place], [place], [phone], 4 09:39:46 albuterol sulfate HFA 90 mcg/actuati on aerosol inhaler 2023 [facility]08086, [address] [place], [place], [id number], 4 09:39:46 amoxicillin 875 mg-potdemetriusiu m clavulanate 125 mg tablet 2023 024 [facility]88007, [address] [place], [place], [phone], 4 09:39:47 Patient TargetsNo targets recorded. Patient InstructionsNo instructions recorded. Reason for Referral Emergency Medicine Referral for Hypertensive urgency Referring Physician: Virgilio Szymanski, Urgent Care, Encounter Date: 09/25/2024 Results Created Date Observation Date Name Description Value Unit Range Abnormal Flag Note LastModifiedBy Organization Detail LastModifiedTime 09/25/2009/25/2024 rapid flu (A+B) Unknown Analyte negati ve Not Available [facility] [address] [place], [address], 09/25/2024 09:15:49 09/25/2009/25/2024 rapid flu (A+B) Unknown Analyte negati ve Not Available [facility] [address] [place], [address], 09/25/2024 09:15:49 09/25/20 24 09/25/2024 SARS CoV 2 (COVI D-19) Ag, QL, IA, upper respi rator y speci men Unknown Analyte negati ve Not Available [facility] [address] [place], [address], 09/25/2024 09:15:39 09/25/20 24 09/25/2024 XR, chest , 2 view No observ ation record ed. [email or web address] [facility] [address] [facility] [place], [address], 09/25/2024 10:04:28 Result Notes None recorded. Problems No Known Problems Procedures Surgical History None recorded. Imaging Results Imaging Date Name Status LastModified by Organiz ation Details LastModified Time 09/25/2024 XR, chest, 2 view completed [email or web address] [facility] [address] [facility] [place], [address], 09/25/2024 10:04:28 Procedure Notes None recorded. Medical [...] Updated DateTime 4 172.72 cm 28 kg/m2 24103 g 98 [degF] 22 /min 95 /min 99 % 99 % 220 mm[Hg] 154 mm[Hg] Mandy Key PA - [facility] 4 09:06:14 Date Recorded Systolic blood pressure Diastolic blood pressure Provider Name and Address Organization Details Last Updated DateTime 09/25/2024 210 mm[Hg] 135 mm[Hg] Virgilio Szymanski, DO [address], [place], [address], [place] - [facility] 09/25/2024 09:13:42 Social History Question Answer Notes LastModified by Organizat ion Details LastModified Time Tobacco Smoking Status Former Smoker Mandy bianchi, PA - [facility] 09/25/2024 09:03:57 Have You Had A Flu Shot This Season? No Information not available 09/25/2024 Have You Recently Traveled Abroad? No [email or web address] Information not available 09/25/2024 Sex: Unknown Functional Status Question Answer Note LastModified by Organizat ion Details LastModified Time How many times per week do you consume alcohol? 1-2 times per week [email or web address] Information not available 09/25/2024 Do you use any illicit or recreational drugs? No [email or web address] Information not available 09/25/2024 What is your level of alcohol consumption? Occasional [email or web address] Information not available 09/25/2024 Mental Status None recorded. Family History Relationship Description Onset Age of this Age Resolved Age Notes LastModified by Organization Details LastModified Time Father No current problems or disability deceas ed [email or web address] Not available 09/25/2024 09:03:25 Mother No current problems or disability [email or web address] Not available 09/25 09:03:10 Medical History No medical history recorded. Gynecological History Statement/Question Response Date of LMP 09/03/2024 Is there any chance of ? No LMP Definite Obstetrics History GPAL:G 0 P 0 0 0 0 Past Encounters Encounter ID Performer Location Encounter Start Date Encounter Closed Date Diagnosis/Indication Diagnosis SNOMED-CT Code Diagnosis ICD10 Code Diagnosis [place] [id number] [place] [address] [place] [address] 09/25/2024 08:58:10 09/25/2024 09:48:12 Cough [id number] R05.9 CXR suggestive of BL PNA - . Await radiology official read.If any discrepanc y we will contact the patient. Rx ABxTake your antibiotic with food. Eat a yogurt daily or take a probiotic while you are taking the antibiotic .albuterol MDIReviewe d with patient potential adverse side effects of the medication . Given Hx and Sx will Rx Abx and albuterol MDITessalo n perles prn coughTrial of mucinex prn congestion Humidified airrest, fluidstyle nol/ibu prn Patient advised to follow up as needed for worsening symptoms or no improvemen t. Discussed concerning red flags with patient and reasons to follow up in the Emergency Department urgently. Hypertensive urgency [id number] I16.0 likely exacerbate d by current illnessLaura is asymptomat ic with regards to her HTN advised that she go to ER nowcarmelinae declined EMS transferSh agueda lives across the street from [place] and will go in private vehicle today Discussed with patient dangers of and associated morbidity/ mortality of untreated HTN Health Concerns Section Related Observation LastModified by Organization Detai ls LastModified Time None Recorded Concern Status LastModified by Organization Details LastModified Time None Recorded Advance Directives Directive None Recorded Payers Insurance Date Sequence Insurance Name Policy Number Policy Hu Covered Member ID Hu Member ID Guarantor Name 09/25/2024 1 [facility] (MEDICARE REPLACEMENT/A DVANTAGE - HMO) [id number] Marina Crowe [id number] Marina Crowe Notes Date Note Type Note [...] Szymanski, DO [address] [place], [address], [place] - [facility] 09/25/2024 09:53:04 OBGyn Episode No OBEpisode recorded.
== END 2025-02-22 11:45 | disposition home or self-care (01) ==
LOC: HO.MAMMO 11:44
PROVIDERS: PCP Nurse Practitioner Family; Visit Provider Nurse Practitioner Family
DX: Z12.31 Encounter for screening mammogram for malignant neoplasm of breast (principal)
CPT/HCPCS: 77063; 77067

== ENCOUNTER → 2025-02-22 12:00 | Outpatient (BNV) | payer BC, SELFPAY | PROVIDERS: PCP Nurse Practitioner Family; Visit Provider Internal Medicine | DX: Z12.31 Encounter for screening mammogram for malignant neoplasm of breast (principal) | CPT/HCPCS: 77063; 77067 ==

== ENCOUNTER 2025-03-11 09:08 | Outpatient (AMB) | payer BC, SELFPAY ==
--- NOTE | 2025-03-11 09:09 | MHC.OFFVIS ---
Vital Signs 03/11/25 09:10 Height 5 ft 8 in Weight 216 lb 7.903 oz BMI 32.9 BP 134/76 Blood Pressure Location Lt brachial Position Sitting Pulse 97 Pulse Source Pulse Oximeter Pulse Oximetry (%) 99 Oxygen Delivery Method Room Air Intake Visit Reasons: 2m follow up/ CTA Intake Note: Pt presents to the office today for a 2 month follow up/CTA. Allergies No Known Allergies Allergy (Verified 03/11/25 09:13) Medication List - Last Reconciled 03/11/25 by Janis Pena NP-C amlodipine 5 mg PO DAILY carvedilol 12.5 mg PO BID citalopram 10 mg PO DAILY 30 days cyanocobalamin (vitamin B-12) 500 mcg PO DAILY diazepam 2 mg PO TID PRN folic acid 1 mg PO DAILY furosemide 20 mg See Protocol PO DAILY meclizine 25 mg PO Q8H PRN multivitamin (Daily-Toya tablet) 1 tab PO DAILY sacubitril-valsartan 49-51 mg (Entresto) 1 tab PO BID thiamine mononitrate (vit B1) 100 mg PO DAILY HPI HPI 2m follow up/ CTA: Details: Marina is a 44 yo female with PMH of HTN who was recently admitted to [facility] with lightheadedness, off balance and found to have uncontrolled HTN, BP 200/104. She had not been taking her antihypertensives for about 1 year. Echo showed reduced EF. She had left-sided numbness and brain MRI showed no acute findings. She was evaluated by Neurology. She was started on appropriate medical management for hypertension and cardiomyopathy. on last visit a CTA of the coronary arteries was ordered and she now presents for follow-up. Today she states that she continues to take medications as directed. Her home blood pressures have been running around 120 systolic. She continues to have numbness to the left side of her body. 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 Since she has been out of work she has gained 20 lb and describes herself as sedentary. She has no chest discomfort at rest or with activity. No shortness of breath, PND, orthopnea or edema. No presyncope, syncope, falls. [facility] Medical History Extra-pontine myelinolysis Central pontine myelinolysis Hypertension Ataxia Psoriasis Depression Anxiety Frequent headaches Scoliosis Arthritis Stroke (cerebrum) Systolic heart failure Family History Father CAD (coronary artery disease) Buerger disease Alcohol abuse Substance abuse High blood pressure Clotting disorder Maternal Grandmother High cholesterol Diabetes Cancer Social History Household Members: Family Housing: House Do you presently have visiting nurse or other home services: No Unable to assess alcohol history related to: Unknown Patient Tobacco Use Status: Former Tobacco user Cigarettes Per Day: 6 e-Cigarette/Vaping Use: Currently Using Second Hand Smoke Exposure: No service: No Current occupational status: employed Current occupation: [employer] Cognitive needs: No Hearing needs: No Vision needs: Yes (wears contacts) Review of Systems Const All systems reviewed & are unremarkable except as noted in HPI and below Reports fatigue and Reports weight gain Card Denies no additional complaints, Denies chest pain, Denies chest pain at rest, Denies chest pain with activity, Denies syncope, Denies rapid heart rate, Denies leg edema, Denies palpitations, Denies dyspnea, Denies dyspnea on exertion and Denies orthopnea Resp Denies dyspnea and Denies dyspnea on exertion Musc Denies no additional complaints Neuro Denies syncope Endo Reports fatigue and Denies palpitations Physical Exam Vital Signs: Last Vital Signs Pulse 97 03/11/25 09:10 BP 134/76 03/11/25 09:10 Pulse Ox 99 03/11/25 09:10 Oxygen Delivery Method Room Air 03/11/25 09:10 BMI result Body Mass Index 32.9 Const General: cooperative, healthy appearing, comfortable and no acute distress Orientation/consciousness: patient oriented x3 Neck Neck: Yes normal visual inspection and Yes no JVD Resp Effort & Inspection: normal respiratory effort Auscultation: clear to auscultation bilaterally, no rales, no rhonchi and no wheezes Cardio Jugular venous distension: no JVD Rate: regular rate Rhythm: regular rhythm Heart sounds: S1 normal heart sound present, S2 normal heart sound present, no murmurs and no rubs Neuro General: patient oriented x3 Extrem General: Yes normal to inspection and No no pedal edema Psych Appearance: grossly normal Mental Status: mental status grossly normal Speech and movement: Normal speech and movement present Assessment & Plan Assessment & Plan (1) Uncontrolled hypertension: Code(s): I10 - Essential (primary) hypertension Category: Medical Plan: Hx of HTN and was not taking her lisinopril 20 mg daily for at least 1 year. [facility] admit to 2023 with a P 200/104. Echo showed EF 35%, grade II diastolic disfunction, moderate LVH. She had mild Congestive heart failure. Renal ultrasound showed no renal artery stenosis. During her admission she was started on meds for blood pressure control and cardiomyopathy. On follow-up visit she had hypotension and hydralazine was stopped. On med list today it seems that Aldactone is also discontinued. Home blood pressures reported as 120s systolic. Blood pressure in office 134/76. Continue carvedilol, Entresto, Lasix. No med changes at this time. Will check limited echo to reassess EF. Cardiology follow-up 3 months, sooner if needed. (2) Cardiomyopathy: Code(s): I42.9 - Cardiomyopathy, unspecified Category: Medical Plan: New finding of cardiomyopathy. Most likely related to uncontrolled hypertension however ischemia needs to be ruled out. Her echocardiogram did show basal inferior akinesis. She has no anginal symptoms. CTA of the coronary arteries done on 02/10/2025 shows no significant CAD, LV wall thickness. Will recheck limited echo. She reports PCP will be doing sleep study to evaluate for sleep apnea. Continue with good blood pressure control. (3) Abnormal echocardiogram: Code(s): R93.1 - Abnormal findings on diagnostic imaging of heart and coronary circulation Category: Medical Plan: As above (4) Heart failure with reduced ejection fraction: Code(s): I50.20 - Unspecified systolic (congestive) heart failure Category: Medical Plan: Mild Congestive heart failure during recent admission. BNP elevated to 412. He was given IV diuretic and sent home with Lasix 20 mg daily as well as Aldactone 12.5 mg daily. She does not appear fluid overloaded on exam today. Continue carvedilol, Entresto, Lasix. Plan During the consultation, I explained the patient?s current cardiac status, emphasizing the importance of controlling hypertension and managing cardiomyopathy. I discussed the continuation of the current medication regimen and the rationale behind it, highlighting the need to maintain blood pressure within target ranges to alleviate cardiac strain. The potential role of sleep apnea in cardiac dysfunction was explained, and the need for a sleep study was reinforced. We reviewed the benefits of weight loss and regular exercise in improving cardiovascular health. I also discussed the upcoming echocardiogram as a means to evaluate treatment efficacy and guide further management. The patient was informed about the importance of follow-up visits to ensure ongoing management and adjustment of treatment as needed. Orders: Orders CA Echo Limited Today I42.9 - Cardiomyopathy, unspecified Patient Instructions: - Continue taking prescribed medications: Entresto, Carvedilol, Lasix, and Amlodipine. - Schedule and complete an echocardiogram. - Limit salt in your diet. - Engage in regular physical activity to aid in weight reduction. - Schedule a sleep study to evaluate potential sleep apnea. - Follow up in three months for reassessment. Patient was informed and verbally consented to the use of an ambient scribe for clinic note documentation during this visit. Time spent on chart review, documentation, intravenous assessment Coding Level of Care Code Est Pt Level 4 (28668) Complex EM visit Add On G2211 Diagnoses Uncontrolled hypertension I10 Cardiomyopathy I42.9 Abnormal echocardiogram R93.1 Heart failure with reduced ejection fraction I50.20 Time Spent (min) 32
[2025-03-11 09:10] VITALS: BP 134/76; PULSE 97; O2SAT 99; BMI 32.9
--- OUTSIDE RECORDS SUMMARY | 2025-03-11 09:29 | XMS_ITS | Data Portability ---
Author Organization [facility]ATHLEEN Lema [facility], [address] Address [address] [place] [address] Assessment No assessment recorded. Plan of Treatment Reminders Order Date Submit Date Provider Last Modified By Organization Details Last Modified Time Details Appointments None recorded. Lab SARS CoV 2 (COVID-19) Ag, QL, IA, upper respiratory specimen 2023 024 [email or web address] [id number], [address] [place], [address], 4 09:39:40 rapid flu (A+B) 2023 024 [email or web address] [facility]999[facility], [address] [place], [address], 4 09:39:40 Referral emergency medicine referral 2023 024 [email or web address] 2 Not available 4 09:48:12 Procedures None recorded. Surgeries None recorded. Imaging XR, chest, 2 view 2023 024 [facility], [address] [facility], [place], [address], 4 10:02:31 Medication Orders Zithromax Z-Florencio 250 mg tablet 2023 024 [id number], [address] [place], [place], [phone], 4 09:39:46 albuterol sulfate HFA 90 mcg/actuati on aerosol inhaler 2023 [id number], [address] [place], [place], [phone], 4 09:39:46 amoxicillin 875 mg-potdemetriusiu m clavulanate 125 [address] [facility][id number], [address] [place], [place], [phone], 4 09:39:47 Patient TargetsNo targets recorded. Patient InstructionsNo instructions recorded. Reason for Referral Emergency Medicine Referral for Hypertensive urgency Referring Physician: Virgilio Szymanski, Urgent Care, Encounter Date: 09/25/2024 Results Created Date Observation Date Name Description Value Unit Range Abnormal Flag Note LastModifiedBy Organization Detail LastModifiedTime 09/25/2009/25/2024 rapid flu (A+B) Unknown Analyte negati ve Not Available [facility] [address] [place], [address], 09/25/2024 09:15:49 09/25/2009/25/2024 rapid flu (A+B) Unknown Analyte negati ve Not Available [facility] [address] [place], [address], 09/25/2024 09:15:49 09/25/20 24 09/25/2024 SARS CoV 2 (COVI D-19) Ag, QL, IA, upper respi rator y speci men Unknown Analyte negati ve Not Available [facility] [address] [place], [address], 09/25/2024 09:15:39 09/25/20 24 09/25/2024 XR, chest , 2 view No observ ation record ed. [email or web address] [facility] [address] [facility] [place], [address], 09/25/2024 10:04:28 Result Notes None recorded. Problems No Known Problems Medical Equipment None Reported. Allergies No known [...] Available Not Avai lable Vitals Date Recorded Systolic blood pressure Diastolic blood pressure Provider Name and Address Organization Details Last Updated DateTime 09/25/2024 210 mm[Hg] 135 mm[Hg] Virgilio Szymanski, DO [address] [place], [address], [place] [employer] 09/25/2024 09:13:42 Date Recorded Body height Body mass index (BMI) Body weight Body temperature Respiratory rate Heart rate Oxygen saturation Oxygen saturation in Arterial blood by Pulse oximetry Systolic blood pressure Diastolic blood pressure Provider Name and Address Organization Details Last Updated DateTime 4 172.72 cm 28 kg/m2 04901 g 98 [degF] 22 /min 95 /min 99 % 99 % 220 mm[Hg] 154 mm[Hg] Mandy Key PA [employer] 09:06:14 Social History Question Answer Notes LastModified by [employer] Details LastModified Time Tobacco Smoking Status Former Smoker Mandy bianchi [place] - [facility] 09/25/2024 09:03:57 Have You Had A Flu Shot This Season? No [email or web address] Information not available 09/25/2024 Have You Recently Traveled Abroad? No Information not available 09/25/2024 Sex: Unknown Functional Status Question Answer Note LastModified by Organizat ion Details LastModified Time How many times per week do you consume alcohol? 1-2 times per week [email or web address] Information not available 09/25/2024 Do you use any illicit or recreational drugs? No [email or web address] Information not available 09/25/2024 What is your level of alcohol consumption? Occasional [email or web address] Information not available 09/25/2024 Mental Status None recorded. Family History Relationship Description Onset Age of this Age Resolved Age Notes LastModified by Organization Details LastModified Time Father No current problems or disability deceas ed [email or web address] Not available 09/25/2024 09:03:25 Mother No current problems or disability [email or web address] Not available 09/25 09:03:10 Medical History No medical history recorded. Gynecological History Statement/Question Response Date of LMP 09/03/2024 Is there any chance of ? No LMP Definite Obstetrics History GPAL:G 0 P 0 0 0 0 Past Encounters Encounter ID Performer Location Encounter Start Date Encounter Closed Date Diagnosis/Indication Diagnosis SNOMED-CT Code Diagnosis ICD10 Code Diagnosis [place] [id number] [place] [address] [address] [place] [address] 09/25/2024 08:58:10 09/25/2024 09:48:12 Cough 30228992 R05.9 CXR suggestive of BL PNA - [...] the Emergency Department urgently. Hypertensive urgency [id number] I16.0 likely exacerbate d by current illnessLaura is asymptomat ic with regards to her HTN advised that she go to ER nowshe declined EMS transferSh e lives [place] the [place] from [place] and will go in private vehicle today [...] Hu Member ID Guarantor Name 09/25/2024 1 [facility] (MEDICARE REPLACEMENT/A DVANTAGE - HMO) [id number] Marina Crowe [id number] Marina Crowe Notes Date Note Type Note [...] Szymanski, DO [address] [place], [address], [place] - [facility] 09/25/2024 09:53:04 OBGyn Episode No OBEpisode recorded.
== END 2025-03-11 09:53 | disposition home or self-care (01) ==
LOC: HO.HCS 09:09
PROVIDERS: PCP Nurse Practitioner Family; Visit Provider Nurse Practitioner Family
DX: I10 Essential (primary) hypertension (principal); I42.9 Cardiomyopathy, unspecified; R93.1 Abnormal findings on diagnostic imaging of heart and coronary circulation; I50.20 Unspecified systolic (congestive) heart failure
CPT/HCPCS: 99214

== ENCOUNTER → 2025-07-07 12:31 | Outpatient (REF) | payer MEDICAID, SELFPAY ==
--- NOTE | 2025-07-07 12:38 | CA_ITS ---
Transthoracic Echocardiogram Patient (Last, First, Middle): Marina Crowe, Gender: F Date of : 1980 Age: 44 Procedure Date: 07/07/2025 Procedure Type: Transthoracic Echocardiogram Location: OP Height: 172.72 cm Weight: 108.86 kg BSA: 2.21 m2 Heart Rate: 80 bpm BP: 136 / 90 mmHg Chain Builder: TO Referring MD: Janis HAYES Janitorial Cleaner: Arya Ardon MD Symptoms: I42.9 - Cardiomyopathy, unspecified Study Quality: Adequate w contrast ECG Rhythm: Sinus Conclusions: - Normal LV ejection fraction of 60 65% with mild asymmetric septal hypertrophy with grade 1 diastolic dysfunction Findings Procedure Information Contrast agent, definity, is being given per protocol without apparent complications. Left Ventricle Normal left ventricular size, thickness, and systolic function. The visually estimated ejection fraction is between 60-65%. Spectral Doppler is indicative of an impaired relaxation filling pattern. E/E prime ratio is <8, consistent with normal filling pressures. Evidence suggests grade I (mild) diastolic dysfunction. There is mild septal asymmetric hypertrophy. Prior Study Comparison Changes noted compared to prior study dated: 12/02/2024. LV systolic function was normalized Measurements 2D Linear Measurements IVSd: 1.27 0.6-0.9/0.6-1.0 cm LVIDd: 4.56 3.9-5.3/4.2-5.9 cm LVIDd Index: 2.06 2.4-3.2/2.2-3.1 cm/m2 LVIDs: 3.20 2.0-3.6 cm LVPWd: 0.94 0.7-1.1 cm LV Mass: 223.80 67-162/88-224 g LV Mass Index: 101.27 43-95/49-115 g/m2 LVOT Diam: 2.10 3.0+(-)1.3 cm 2D Systolic Function EF 4C: 63.30 >55% EF 2C: 59.60 >55% EF BiP: 61.20 >55% Mitral Valve MV Pk E: 0.51 MV PK A: 0.69 MV Decel Time: 139.00 E/A: 0.70 E'Lateral: 6.64 E'Medial: 4.46 E/E' Med: 11.40 E/E' Lat: 7.70 PHT: 41.00 MVA PHT: 5.37 Decel [place]: 3.67 LVOT LVOT Pk Kareem: 1.21 LVOT Mn Kareem: 0.77 LVOT VTI: 0.18 LVOT Pk Grad: 6.00 LVOT Mn Grad: 3.00 LVOT Diam: 2.10 LVOT Area: 3.46 Diastolic Function MV Pk E: 0.51 MV Pk A: 0.69 E/A: 0.70 E'Medial: 4.46 E/E' Med: 11.40 E' Laterial: 6.64 E/E' Lat: 7.70 Tricuspid Valve RA Press: 3.00 Updated in Other Vendor System with Status of Final Arya Ardon MD electronically signed on 07/07/2025 4:29:29 PM with status of Final
== END ==
LOC: HO.CARD 12:31
PROVIDERS: PCP Nurse Practitioner Family; Visit Provider Nurse Practitioner Family
DX: I42.9 Cardiomyopathy, unspecified (principal)
CPT/HCPCS: 93308; Q9957

== ENCOUNTER → 2025-07-07 12:38 | Outpatient (BNV) | payer MEDICAID, SELFPAY | PROVIDERS: PCP Nurse Practitioner Family; Visit Provider Internal Medicine Cardiovascular Disease | DX: I42.2 Other hypertrophic cardiomyopathy (principal); I51.89 Other ill-defined heart diseases | CPT/HCPCS: 93308; 93321; 93325 ==